=== PATIENT | male | born 1940 | race Asian ===

== ENCOUNTER → 2016-10-27 | Outpatient (CLI) | payer OTHER ==
[~2016-10-27] MED LIST: ALOE1LIQ; COQ PO; DXM/4 PO; ELDE1SYP PO; GUAI1TAB69 PO; MEGE40SU PO; MISCCAP80 PO; ONDA8TAB6 PO; OPTIRAY 320 IV PRN; PROC1TAB5 PO; TAMS0.4C38 PO; TRIA1SPR4 INTNAS; [UNRECOGNIZED DRUG - OTHER]
--- NOTE | 2016-10-28 07:42 | DIAGNOSTIC IMAGING REPORT ---
CT OF THE CHEST WITH IV CONTRAST CLINICAL HISTORY: Lung cancer. COMPARISON STUDY: Chest CT June 04, 2016 and PET/CT July 16, 2016. TECHNIQUE: Following IV administration of 93 mL of Optiray-320, helical axial images of the chest were obtained. Images were viewed in the axial, sagittal and coronal planes. IV contrast was administered without complication. CT DOSE: 208.67 mGy.cm FINDINGS: Several right paratracheal lymph nodes have not significantly changed since exam July 16, 2016 and include a right paratracheal lymph node shown image 49 of 336 that measures 1 cm short axis diameter. A lower right paratracheal lymph node shown on image 106 is unchanged, measuring 1.7 x 1.2 cm. The previous described right upper lobe mass is now cavitary. This mass measures approximately 7.5 x 5.9 cm. The mass has decreased in size since prior exam of July 16, 2016 when it measured 9 x 7.6 cm. A thick irregular wall persists. Right upper lobe aeration has improved since prior exam. There is been interval increase in extensive right lower lobe consolidation since prior exam. Innumerable nodules within the right lung, most evident within the right middle and lower lobes are now noted. There has been interval development of left upper and lower lobe airspace opacity as well. There is no pneumothorax. There is a trace right pleural effusion. No suspicious osseous lesions are present. Several hypodense hepatic lesions are unchanged and likely reflect cysts. Several bilateral renal cysts are noted. IMPRESSION: 1. Interval cavitation of the right upper lobe mass with mild decrease in size since PET/CT of July 16, 2016 consistent with a partial treatment response. 2. No change in mild mediastinal and right hilar lymphadenopathy since prior exam. 3. Interval development of stents is bilateral airspace opacities. Opacity within the right lung may reflect post radiation change although pneumonia could appear similar. 4. Tree-in-bud nodules within the right lung which may reflect an infectious process. Lymphangitic tumor could also appear similar although is considered less likely. This should be assessed on subsequent studies. 5. Trace right pleural effusion, significantly decreased in size since prior exam. Electronically signed by: Donell Mendez M.D. 10/28/2016 7:40 AM Dictated Date/Time: 10/27/2016 1:26 PM
== END | disposition home or self-care (01) ==
LOC: C.CTS 12:51
PROVIDERS: ATTEND Internal Medicine Hematology
DX: C34.11 Malignant neoplasm of upper lobe, right bronchus or lung (principal); C77.1 Secondary and unspecified malignant neoplasm of intrathoracic lymph nodes

== ENCOUNTER → 2016-10-29 | Outpatient (CLI) | payer OTHER ==
[~2016-10-29] MED LIST changes: -OPTIRAY 320 IV PRN
[2016-10-29 14:28] VITALS: BP 102/66; PULSE 94; TEMP 36.7; O2SAT 95
[2016-10-29 15:53] LABS: BASO % 0.1 %; BASO ABS # 0.01 K/uL (0-0.2); EOS % 0.3 %; HEMATOCRIT 26.7 % (42-52); IG% 0.6 %; LYMPH % 8.8 %; LYMPH ABS # 0.77 K/uL (1.2-3.4); MEAN CELL VOLUME 84.8 fL (80-100); MEAN CORPUSCULAR HEMOGLOBIN 27.9 pg (25-34); MONO % 7.1 %; NEUT % 83.1 %; PLATELET COUNT 280 K/uL (130-400); RED BLOOD COUNT 3.15 M/uL (4.7-6.1); WHITE BLOOD COUNT 8.76 K/uL (4.8-10.8)
[2016-10-29 16:31] LABS: ANISOCYTOSIS PRESENT; COMPLETE YES; VACUOLIZATION 1+
--- NOTE | 2016-10-29 18:03 | Radiation Oncology Follow-Up ---
Radiation Oncology Follow-Up Date of Visit Oct 29, 2016. Reason For Visit 1 month follow up Radiation Completion Date 10/01/16 Diagnosis (1) Lung cancer Onset Date: 06/11/2016 Permanent Comment: STAGING: Lung, RUL, adenocarcinoma, T3N3M0, stage IIIB TREATMENT: Status post combined radiation and chemotherapy radiation was completed 10/01/2016. He received 6000 cGy. Last Edited By: Kirk Tinoco on Oct 29, 2016 17:55 Interim History Mr. Dinh is a 76-year-old gentleman who presents with locally advanced non- small cell lung carcinoma involving the right upper lobe. The patient was treated with concurrent chemotherapy and radiation therapy and treatment completed on 10/01/2016. The patient did receive concurrent carboplatin and Taxol chemotherapy underneath the supervision of Dr. Tung Tinoco. The patient now presents for his 1 month follow-up evaluation. Today, the patient explained to us that he is having some significant fatigue and more shortness of breath. He is also having a productive cough without hemoptysis. He denies any dysphagia at this point. He has no significant pain. He does also complain of ringing in his left ear. He does continue to lose weight. His daughter did mention that he did recently have a transfusion of 2 units of packed red blood cells due to acute anemia. Allergies Coded Allergies: Finasteride (Verified Adverse Reaction, Unknown, BREAST GROWTH, 09/10/16) Home Medications Scheduled Dexamethasone (Decadron), 12 TAB PO DAILY Elderberry (Little Remedies For Colds), 10 ML PO AC Guaifenesin (Mucinex Maximum Strength), 1 TAB PO BID Megestrol Acetate (Megace Oral), 20 ML PO DAILY Probiotic Product (Probiotic), 1 CAP PO DAILY Prochlorperazine Maleate (Compazine), 1 TAB PO Q6 Tamsulosin Hcl (Flomax), 1 CAP PO HS [Coq10 Liquid], 30 ML PO TID [munuka honey], 2 TSP ACHS Scheduled PRN Ondansetron Hcl (Zofran), 8 MG PO TID PRN for Nausea Triamcinolone Acetonide (Nasal (Nasacort Allergy 24Hr), 2 SPRAYS INTNAS DAILY PRN for Nasal Congestion Review of Systems Gastrointestinal: Symptoms: Constipation GI Comments: Constipation - tries to increase fiber in diet - goes every 2 days Oral: Symptoms: No Problems Other Oral Symptoms: "takes a long time to swallow but not painful" Respiratory: Symptoms: Moist Cough, SOB With Exertion, Productive Cough Sputum Character: Productive cough of thick yellow/green sputum Other Respiratory: Cough causes SOB, KENNEDY Urinary: Symptoms: Burning Comments: Burning when urinating past couple days Skin: Symptoms: No Problems Physical Exam Vital Signs Date Time Temp Pulse Resp B/P Pulse Ox O2 Delivery O2 Flow Rate FiO2 10/29/16 14:28 36.7 94 16 102/66 95 General Appearance: WD/WN, no apparent distress Eyes: normal inspection ENT: normal ENT inspection Neck: supple, no adenopathy Respiratory/Chest: + decreased breath sounds, + crackles, + rales Cardiovascular: regular rate, rhythm, no edema, no gallop, no JVD, no murmur Abdomen: normal bowel sounds, non tender, soft, no organomegaly Laboratory Studies Test 08/13/16 00:00 08/13/16 13:40 09/25/16 14:26 10/01/16 14:21 Miscellaneous Genetic Test Lab Scanned Report Lab Referral [id number] Toxic Vacuolation 1+ Tear Drop Cells 1+ Ovalocytes 1+ 1+ Sodium Level 134 mmol/L (136-145) 132 mmol/L (136-145) Potassium Level 3.6 mmol/L (3.5-5.1) 3.8 mmol/L (3.5-5.1) Chloride Level 100 mmol/L (98-107) 96 mmol/L (98-107) Carbon Dioxide Level 25 mmol/L (21-32) 26 mmol/L (21-32) Anion Gap 9.0 mmol/L (3-11) 10.0 mmol/L (3-11) Blood Urea Nitrogen 19 mg/dl (7-18) 16 mg/dl (7-18) Creatinine 0.55 mg/dl (0.60-1.40) 0.61 mg/dl (0.60-1.40) Estimated GFR () 119.0 114.0 Estimated GFR (Non- 102.7 98.4 BUN/Creatinine Ratio 34.2 (10-20) 26.2 (10-20) Random Glucose 117 mg/dl (70-99) 112 mg/dl (70-99) Calcium Level 8.2 mg/dl (8.5-10.1) 8.0 mg/dl (8.5-10.1) Total Bilirubin 0.4 mg/dl (0.2-1) 0.5 mg/dl (0.2-1) Aspartate Amino Transferase (AST) 13 U/L (15-37) 44 U/L (15-37) Alanine Aminotransferase (ALT) 21 U/L (12-78) 44 U/L (12-78) Alkaline Phosphatase 65 U/L (45-117) 121 U/L (45-117) Total Protein 5.4 gm/dl (6.4-8.2) 6.0 gm/dl (6.4-8.2) Albumin 2.2 gm/dl (3.4-5.0) 2.1 gm/dl (3.4-5.0) Globulin 3.2 gm/dl (2.5-4.0) 3.9 gm/dl (2.5-4.0) Albumin/Globulin Ratio 0.7 (0.9-2) 0.5 (0.9-2) White Blood Count 4.06 K/uL (4.8-10.8) Red Blood Count 3.21 M/uL (4.7-6.1) Hemoglobin 9.2 g/dL (14.0-18.0) Hematocrit 27.2 % (42-52) Mean Corpuscular Volume 84.7 fL (80-100) Mean Corpuscular Hemoglobin 28.7 pg (25-34) Mean Corpuscular Hemoglobin Concent 33.8 g/dl (32-36) Platelet Count 162 K/uL (130-400) Mean Platelet Volume 8.6 fL (7.4-10.4) Neutrophils (%) (Auto) 84.3 % Lymphocytes (%) (Auto) 8.9 % Monocytes (%) (Auto) 5.9 % Eosinophils (%) (Auto) 0.2 % Basophils (%) (Auto) 0.2 % Neutrophils # (Auto) 3.42 K/uL (1.4-6.5) Lymphocytes # (Auto) 0.36 K/uL (1.2-3.4) Monocytes # (Auto) 0.24 K/uL (0.11-0.59) Eosinophils # (Auto) 0.01 K/uL (0-0.5) Basophils # (Auto) 0.01 K/uL (0-0.2) RDW Standard Deviation 55.9 fL (36.4-46.3) RDW Coefficient of Variation 18.1 % (11.5-14.5) Immature Granulocyte % (Auto) 0.5 % Immature Granulocyte # (Auto) 0.02 K/uL (0.00-0.02) Dohle Bodies OCCASIONAL Test 10/29/16 15:46 White Blood Count 8.76 K/uL (4.8-10.8) Red Blood Count 3.15 M/uL (4.7-6.1) Hemoglobin 8.8 g/dL (14.0-18.0) Hematocrit 26.7 % (42-52) Mean Corpuscular Volume 84.8 fL (80-100) Mean Corpuscular Hemoglobin 27.9 pg (25-34) Mean Corpuscular Hemoglobin Concent 33.0 g/dl (32-36) Platelet Count 280 K/uL (130-400) Mean Platelet Volume 8.0 fL (7.4-10.4) Neutrophils (%) (Auto) 83.1 % Lymphocytes (%) (Auto) 8.8 % Monocytes (%) (Auto) 7.1 % Eosinophils (%) (Auto) 0.3 % Basophils (%) (Auto) 0.1 % Neutrophils # (Auto) 7.28 K/uL (1.4-6.5) Lymphocytes # (Auto) 0.77 K/uL (1.2-3.4) Monocytes # (Auto) 0.62 K/uL (0.11-0.59) Eosinophils # (Auto) 0.03 K/uL (0-0.5) Basophils # (Auto) 0.01 K/uL (0-0.2) RDW Standard Deviation 56.0 fL (36.4-46.3) RDW Coefficient of Variation 17.9 % (11.5-14.5) Immature Granulocyte % (Auto) 0.6 % Immature Granulocyte # (Auto) 0.05 K/uL (0.00-0.02) Toxic Vacuolation 1+ Anisocytosis PRESENT Additional Studies CT OF THE CHEST WITH IV CONTRAST - 10/27/2016 CLINICAL HISTORY: Lung cancer. COMPARISON STUDY: Chest CT June 04, 2016 and PET/CT July 16, 2016. TECHNIQUE: Following IV administration of 93 mL of Optiray-320, helical axial images of the chest were obtained. Images were viewed in the axial, sagittal and coronal planes. IV contrast was administered without complication. CT DOSE: 208.67 mGy.cm FINDINGS: Several right paratracheal lymph nodes have not significantly changed since exam July 16, 2016 and include a right paratracheal lymph node shown image 49 of 336 that measures 1 cm short axis diameter. A lower right paratracheal lymph node shown on image 106 is unchanged, measuring 1.7 x 1.2 cm. The previous described right upper lobe mass is now cavitary. This mass measures approximately 7.5 x 5.9 cm. The mass has decreased in size since prior exam of July 16, 2016 when it measured 9 x 7.6 cm. A thick irregular wall persists. Right upper lobe aeration has improved since prior exam. There is been interval increase in extensive right lower lobe consolidation since prior exam. Innumerable nodules within the right lung, most evident within the right middle and lower lobes are now noted. There has been interval development of left upper and lower lobe airspace opacity as well. There is no pneumothorax. There is a trace right pleural effusion. No suspicious osseous lesions are present. Several hypodense hepatic lesions are unchanged and likely reflect cysts. Several bilateral renal cysts are noted. IMPRESSION: 1. Interval cavitation of the right upper lobe mass with mild decrease in size since PET/CT of July 16, 2016 consistent with a partial treatment response. 2. No change in mild mediastinal and right hilar lymphadenopathy since prior exam. 3. Interval development of stents is bilateral airspace opacities. Opacity within the right lung may reflect post radiation change although pneumonia could appear similar. 4. Tree-in-bud nodules within the right lung which may reflect an infectious process. Lymphangitic tumor could also appear similar although is considered less likely. This should be assessed on subsequent studies. 5. Trace right pleural effusion, significantly decreased in size since prior exam. Assessment & Plan Mr. Dinh is a 76-year-old gentleman who presents with locally advanced non- small cell lung carcinoma of the right lung treated with chemotherapy and radiation therapy which completed in September 2016. The patient presents for his 1 month follow-up evaluation. The patient did have a CT thorax completed on 10/27/2016 which does show a partial response to treatment with significant inflammation possibly from either infection or radiation therapy. Currently, the patient has no clinical evidence of progression of disease. Plan: 1. Return to clinic in 4 months for follow-up evaluation. 2. Follow up with medical oncology regarding the role of chemotherapy and restaging studies. We will forward the lab results from the CBC drawn today due to the patient's transient acute anemia. 3. Referral to pulmonology to optimize respiratory function and potentially treat underlying pneumonia/infection. I have spoken to Dr. Chepe Phipps and he does agree the patient should be evaluated by a high value associate and will help to have the patient be scheduled in the pulmonary clinic. 4. Continue follow-up with thoracic surgery. 5. The patient in the family were encouraged to call me if there are any questions or concerns. Total Time In Follow-Up I spent 30 minutes examining and counseling the patient. I spent 15 minutes completing this note. Copy To Sanjana Rosas D.O.; Tung Tinoco M.D.; Bryan Phipps MD; Angel Cristobal MD
== END | disposition home or self-care (01) ==
LOC: C.ONC 14:18
PROVIDERS: ATTEND Radiology Radiation Oncology
DX: Z08 Encounter for follow-up examination after completed treatment for malignant neoplasm (principal); Z92.3 Personal history of irradiation; Z85.118 Personal history of other malignant neoplasm of bronchus and lung

== ENCOUNTER 2016-11-11 13:45 | Inpatient (IN) | payer OTHER ==
[~2016-11-11] VITALS: Ht 170.2 cm; Wt 52.9 kg
[2016-11-11] VITALS (17 sets, daily range): BP systolic 94–177; BP diastolic 57–96; PULSE 112–157; TEMP 36.4–36.9; O2SAT 67–99; BMI 17.9
[~2016-11-11 13:45] MED LIST changes: -ALOE1LIQ
[2016-11-11] MEDS ORDERED: VANCOMYCIN INJ 1,000 MG in SODIUM CHLORIDE 0.9% 250ML 250 ML IV STA (13:59)
[2016-11-11] MEDS ORDERED: LEVOFLOXACIN / D5W 750 MG in PREMIXED IN D5W 150 ML IV SCH (14:00)
[2016-11-11] MEDS ORDERED: ACETAMINOPHEN 325 MG TAB PO PRN (14:00)
[2016-11-11] MEDS ORDERED: ONDANSETRON INJ 2 MG/ML 2 ML VIAL IV PRN (14:00)
[2016-11-11] MEDS ORDERED: PATIENT'S HEIGHT AND/OR WEIGHT NEEDED SCH (14:30)
[2016-11-11] MEDS ORDERED: VANCOMYCIN CONSULT ACTIVE PRN (14:30)
[2016-11-11] MEDS ORDERED: NSS + 20MEQ KCL 1000ML 1,000 ML IV SCH (14:30)
[2016-11-11] MEDS ORDERED: PIPERACILL/TAZOBAC CONSULT ACTIVE PRN (14:30)
--- NOTE | 2016-11-11 14:33 | DIAGNOSTIC IMAGING REPORT ---
CHEST ONE VIEW PORTABLE CLINICAL HISTORY: bilateral pneumonia, hypoxia COMPARISON STUDY: 08/13/2016 FINDINGS: The cardiac images all contours remain stable. Since the prior study, there has been interval development of extensive left lung airspace opacities. There are persistent but improving right lung airspace opacities. There is a persistent peripheral opacity within the right upper lung zone. There is soft tissue prominence of the right paratracheal region..[ IMPRESSION: 1. Interval development of extensive left lung airspace opacities 2. Persistent but slightly improved right lung airspace opacities 3. Soft tissue prominence of the right paratracheal region Electronically signed by: Lam Graf M.D. 11/11/2016 2:31 PM Dictated Date/Time: 11/11/2016 2:29 PM
[2016-11-11] MEDS ORDERED: PIPERACILL/TAZOBAC IV 4.5 GM in DEXTROSE 5% 100ML IV ONE (14:45)
[2016-11-11 14:48] LABS: INR 1.2 (0.9-1.1); PARTIAL THROMBOPLASTIN RATIO 1.4; PROTHROMBIN TIME (PATIENT) 13.4 SECONDS (9.0-12.0)
[2016-11-11 14:50] LABS: BASO % 0.1 %; BASO ABS # 0.01 K/uL (0-0.2); COMPLETE YES; EOS % 0.1 %; HEMATOCRIT 29.8 % (42-52); IG% 0.5 %; LYMPH ABS # 0.35 K/uL (1.2-3.4); MEAN CELL VOLUME 85.4 fL (80-100); MEAN CORPUSCULAR HEMOGLOBIN 29.2 pg (25-34); MEAN CORPUSCULAR HGB CONC 34.2 g/dl (32-36); MEAN PLATELET VOLUME 8.4 fL (7.4-10.4); MONO % 0.5 %; NEUT % 96.8 %; PLATELET COUNT 312 K/uL (130-400); RED BLOOD COUNT 3.49 M/uL (4.7-6.1); WHITE BLOOD COUNT 17.68 K/uL (4.8-10.8)
[2016-11-11 15:07] LABS: ALB/GLOB RATIO 0.3 (0.9-2); ALT/SGPT 37 U/L (12-78); AST/SGOT 33 U/L (15-37); BLOOD UREA NITROGEN 18 mg/dl (7-18); BUN/CREATININE RATIO 22.8 (10-20); CALCIUM 7.9 mg/dl (8.5-10.1); CARBON DIOXIDE 24 mmol/L (21-32); CHLORIDE 102 mmol/L (98-107); GLUCOSE 218 mg/dl (70-99); POTASSIUM 3.7 mmol/L (3.5-5.1); SODIUM 137 mmol/L (136-145)
[2016-11-11 15:08] LABS: ALKALINE PHOSPHATASE 97 U/L (45-117)
--- NOTE | 2016-11-11 15:15 | History and Physical ---
History & Physical Date & Time of Service: Nov 11, 2016 at 14:53 Chief Complaint: Bilateral Pneumonia, Severe Sepsis W/O Shock Primary Care Physician: Sanjana Rosas D.O. History of Present Illness Source: patient, family, clinic records, hospital records 76 yo male who has recent diagnosis of right sided poorly differentiated adenocarcinoma and just completed a full course of chemotherapy and radiation at the end of September. Approximately 2 weeks ago he had a follow up staging CT of the chest that showed some bilateral patchy infiltrates suggesting pneumonia. At that time his oncologist Dr. Tinoco started him on a 10 day course of antibiotics (unknown antibiotic) and Ventolin and mucinex. At the time of his CT he had a mild cough but no fevers and his breathing was stable and he had a normal appetite. He completed the 10 days of antibiotics and actually his cough improved. However, two days ago he developed high grade fevers, worsening cough, decreased appetite and worsening shortness of breath. He presented to the ED at [facility] yesterday with hypoxia, tachycardia and tachypnea. His WBC was 11 with 90% neutrophils, renal function and electrolytes stable. His Lactic acid was 2.1. CXR showed bilateral patchy infiltrates suggesting pneumonia. He required a NRB in the ED and initially he was supposed to come to [facility] but transport could not be arranged so he was admitted to the floor. He was started on Cefepime and Vancomycin after blood and urine cultures obtained. This morning he was still requiring a NRB and saturations were 90-92%. WBC went up to 15 with 97% neutrophils. BMP remained unremarkable. He was accepted as a direct transfer from [facility]. His daughter reports that he did reasonably well with chemotherapy and radiation. His weight has decreased from 125 at time of diagnosis to 108 now. He did require a few blood transfusions. But otherwise he did well, did not require any hospitalizations and he was in good spirits, anxious to see how the tumor responded to treatment to see if surgery would be an option. Past Medical/Surgical History Right sided lung adenocarcinoma, stage IIIb, s/p chemo and radiation completed in September 2016 Suspected MO in his 30s - never confirmed Arthritis Anemia BPH Bilateral cataract - no surgery yet Surgical History Surgery on right lower eyelid Family History Patient reports no known family medical history. Mother 95yo healthy Father 80yo "Collapsed" and 1 brother living lung cancer 1 sister living "Psych problems" 1 brother living smoking 1 sister living PVCs, needs Gallbladder removed, scoliosis Social History Smoking Status: Former Smoker Marital Status: Occupational Status: retired Allergies Coded Allergies: Finasteride (Verified Adverse Reaction, Unknown, BREAST GROWTH, 09/10/16) Home Medications Scheduled Dexamethasone (Decadron), 12 TAB PO DAILY Elderberry (Little Remedies For Colds), 10 ML PO AC Guaifenesin (Mucinex Maximum Strength), 1 TAB PO BID Megestrol Acetate (Megace Oral), 20 ML PO DAILY Probiotic Product (Probiotic), 1 CAP PO DAILY Prochlorperazine Maleate (Compazine), 1 TAB PO Q6 Tamsulosin Hcl (Flomax), 1 CAP PO HS [Coq10 Liquid], 30 ML PO TID [munuka honey], 2 TSP ACHS Scheduled PRN Ondansetron Hcl (Zofran), 8 MG PO TID PRN for Nausea Triamcinolone Acetonide (Nasal (Nasacort Allergy 24Hr), 2 SPRAYS INTNAS DAILY PRN for Nasal Congestion Review of Systems Constitutional: + chills, + fatigue, + fever, + sweats, + weakness, + weight loss Eyes: No diplopia, No discharge, No eye pain, No problem reported, No redness, No worsening of vision ENT: No dental problems, No hearing loss, No nasal symptoms, No problem reported, No sore throat, No tinnitus, No trouble swallowing, No unusual epistaxis Respiratory: + cough, + dyspnea at rest, + dyspnea on exertion, + shortness of breath, + sputum, No hemoptysis, No wheezing Cardiovascular: No PND, No chest pain, No claudication, No edema, No orthopnea , No palpitations, No problem reported Abdomen: No GI bleeding, No constipation, No diarrhea, No nausea, No pain, No problem reported, No vomiting Musculoskeletal: + joint pain, No calf pain, No muscle pain, No problem reported, No swelling Genitourinary - Male: No dysuria, No hematuria, No urinary frequency, No urinary urgency Neurologic: + weakness, No balance problems, No memory loss, No numbness/ tingling, No paralysis, No problem reported, No vertigo Psychiatric: No anhedonism, No anxiety, No depression symptoms, No insomnia, No problem reported, No substance abuse Endocrine: No excessive thirst, No excessive urination, No fatigue, No problem reported Hematologic / Lymphatic: No abnormal bleeding/bruising, No clotting problems, No night sweats, No problem reported, No swollen lymph nodes Integumentary: No bleeding, No color change, No itch, No new/changing skin lesions, No problem reported, No rash Allergic / Immunologic: No environmental allergies, No food allergies, No frequent infections, No hives, No pet sensitivities, No poor healing, No problem reported, No prolonged convalescence, No seasonal allergies Physical Exam General Appearance: + moderate distress (with breathing), + thin Head: normocephalic, atraumatic Eyes: normal inspection, PERRL, EOMI, sclerae normal ENT: normal ENT inspection, hearing grossly normal, pharynx normal Neck: supple, no adenopathy, thyroid normal, no JVD, trachea midline Respiratory/Chest: + respiratory distress, + decreased breath sounds, + accessory muscle use, + crackles, + rhonchi (bilaterally) Cardiovascular: no edema, no gallop, no JVD, no murmur, normal peripheral pulses, + tachycardia Abdomen/GI: normal bowel sounds, non tender, soft, no organomegaly Back: normal inspection, no CVA tenderness, no muscle spasm, normal range of motion Extremities/Musculoskelatal: normal inspection, no calf tenderness, normal capillary refill, no pedal edema, normal range of motion, pelvis stable Neurologic/Psych: automation engineer II-XII nml as tested, no motor/sensory deficits, alert, normal mood/affect, normal reflexes, oriented x 3 Skin: normal color, warm/dry, no rash, + pertinent finding (no mottling) Lymphatic: no adenopathy Diagnostics Laboratory Results Results Past 24 Hours Test 11/11/16 14:05 11/11/16 14:27 Range/Units White Blood Count 17.68 4.8-10.8 K/uL Red Blood Count 3.49 4.7-6.1 M/uL Hemoglobin 10.2 14.0-18.0 g/dL Hematocrit 29.8 42-52 % Mean Corpuscular Volume 85.4 80-100 fL Mean Corpuscular Hemoglobin 29.2 25-34 pg Mean Corpuscular Hemoglobin Concent 34.2 32-36 g/dl Platelet Count 312 130-400 K/uL Mean Platelet Volume 8.4 7.4-10.4 fL Neutrophils (%) (Auto) 96.8 % Lymphocytes (%) (Auto) 2.0 % Monocytes (%) (Auto) 0.5 % Eosinophils (%) (Auto) 0.1 % Basophils (%) (Auto) 0.1 % Neutrophils # (Auto) 17.13 1.4-6.5 K/uL Lymphocytes # (Auto) 0.35 1.2-3.4 K/uL Monocytes # (Auto) 0.09 0.11-0.59 K/uL Eosinophils # (Auto) 0.02 0-0.5 K/uL Basophils # (Auto) 0.01 0-0.2 K/uL RDW Standard Deviation 56.4 36.4-46.3 fL RDW Coefficient of Variation 18.1 11.5-14.5 % Immature Granulocyte % (Auto) 0.5 % Immature Granulocyte # (Auto) 0.08 0.00-0.02 K/uL Prothrombin Time 13.4 9.0-12.0 SECONDS Prothromb Time International Ratio 1.2 0.9-1.1 Activated Partial Thromboplast Time 36.0 21.0-31.0 SECONDS Partial Thromboplastin Ratio 1.4 Microbiology Results 11/11/16 Gram Stain, Ordered Pending 11/11/16 Sputum Culture, Ordered Pending Diagnostic Radiology CXR: diffuse left sided opacities, slightly improved right sided opacities compared to prior film Impression Assessment and Plan 76 yo male with stage IIIb right sided adenocarcinoma s/p chemo and radiation who presents with bilateral pneumonia and acute respiratory failure - Acute hypoxic respiratory failure, possible ARDS: high oxygen demands on NRB, bilateral infiltrates, no evidence of heart failure continue NRB consult pulmonary long discussion with patient and daughter regarding prognosis, his breathing could get worse, they are open to mechanical ventilation if needed - Bilateral pneumonia, HCAP since he failed outpatient antibiotics and is cancer patient Vancomycin, Zosyn and Levaquin legionella antigen sent duonebs, vibratory vest, flutter valve NSS + 20mEq K at 100cc/hr - Severe sepsis with organ failure: organ failure is respiratory failure with hypoxia no evidence of shock, repeat lactic acid was 0.8 at [facility], actually hypertensive here on transfer and never hypotensive at [facility] takes Decadron for chemotherapy, will start on stress dose steroids due to severe illness - Stage IIIb lung adenocarcinoma: completed chemo and radiation will follow up with Dr. Tinoco for restaging once he recovers from pneumonia - DVT prophylaxis: Lovenox - GI prophylaxis: Protonix Please note that 45 minutes of critical care time spent on patient from 225-310 pm I discussed the case with Dr. Cruz in ICU, aware of patient if he would decompensate Level of Care Telemetry Resuscitation Status FULL RESUSCITATION VTE Prophylaxis VTE Risk Assessment Done? Y/N: Yes Risk Level: High Given or contraindicated: Enoxaparin (Lovenox)SQ Note Total Time: Critical Care 30 - 74 minutes Additional Copies To Sanjana Rosas D.O.; Bryan Phipps MD
[2016-11-11] MEDS: HYDROCORTISONE IV 50 MG in SYRINGE 0 ML IV SCH ×2 (15:27→22:53)
[2016-11-11 15:38] LABS: URINE APPEARANCE CLOUDY (CLEAR); URINE BILIRUBIN NEG (NEG); URINE COLOR DK YELLOW; URINE EPITHELIAL CELL AUTO >30 /lpf (0-5); URINE NITRITE NEG (NEG); URINE SPECIFIC GRAVITY 1.027 (1.000-1.030); UROBILINOGEN NEG (NEG); ZZUR CULT IF INDIC CLEAN CATCH NO
[2016-11-11 15:44] LABS: MANUAL MICROSCOPIC REQUIRED? NO; REVIEW REQ? YES
[2016-11-11] MEDS ORDERED: VANCOMYCIN INJ 1,300 MG in SODIUM CHLORIDE 0.9% 250ML 250 ML IV ONE (15:45)
[2016-11-11 15:54] LABS: URINE PATH CASTS 1-5 GRANULAR CASTS /lpf (0)
[2016-11-11 15:55] LABS: URINE MUCUS PRESENT (NONE PRSENT)
--- NOTE | 2016-11-11 15:55 | Pharmacy Progress Note ---
Pharmacy Antibiotic Consult Date of Service: Nov 11, 2016. Pharmacy Dosing Scope Pharmacy is consulted to initiate Vanco/Zosyn/LVQ IV dosing therapy, order appropriate labs and adjust drug dose/frequency. Subjective The patient is a 76 year old male admitted on Nov 11, 2016 at 13:45. Objective Height (Feet): 5 Height (Inches): 7.00 Weight (Kilograms): 51.900 Lab Results (24hrs): Item Value Date Time Creatinine 0.80 mg/dl 11/11/16 1427 Estimated GFR () 102.0 11/11/16 1427 Laboratory Tests Test 11/11/16 14:27 BUN/Creatinine Ratio 22.8 Blood Urea Nitrogen 18 mg/dl Creatinine 0.80 mg/dl White Blood Count 17.68 K/uL Red Blood Count 3.49 M/uL Hemoglobin 10.2 g/dL Hematocrit 29.8 % Mean Corpuscular Volume 85.4 fL Mean Corpuscular Hemoglobin 29.2 pg Mean Corpuscular Hemoglobin Concent 34.2 g/dl Platelet Count 312 K/uL Mean Platelet Volume 8.4 fL Neutrophils (%) (Auto) 96.8 % Lymphocytes (%) (Auto) 2.0 % Monocytes (%) (Auto) 0.5 % Eosinophils (%) (Auto) 0.1 % Basophils (%) (Auto) 0.1 % Neutrophils # (Auto) 17.13 K/uL Lymphocytes # (Auto) 0.35 K/uL Monocytes # (Auto) 0.09 K/uL Eosinophils # (Auto) 0.02 K/uL Basophils # (Auto) 0.01 K/uL Micro Results: Item Value Date Time MRSA DNA Surveillance Screen Bill Batch 11/11/16 1521 Nasal Pending Gram Stain Ordered 11/11/16 1405 Sputum Expectorated Sputum Pending Assessment & Plan Pt p/w worsening SOB. Pt failed recent antibx and is being transferred in from [facility]. Pt is currently tachypneic, tachycardic, experiencing leukocytosis w/ a left shift, afebrile. Renal fxn looks to be at baseline. Scr=0.80, gWqMw=351mr /min. Pt population p'kinetics; t1/2=7.8hrs, ke=0.0891. Vanco: * Loading dose: Vanco 1300mg (25mg/kg) IV X 1 dose then: * Vanco 800mg(15mg/kg) IV every 10 hours. * Goal trough level estimate: between 15 - 20 mcg/mL. * Trough level has been ordered for: prior to the 4th MD. Zosyn: * Pt received one time 30 min 4.5g infsn at 1445 * Set to receive EI Zosyn q8, appropriate for eCrCl>20cc/min and clinical status LVQ * Not consulted; however, appropriately dosed Thank you for consulting the pharmacy kinetic team and including us in the care of Mr. Dinh Pharmacy will continue to follow and will adjust dose/frequency as necessary. Thank you
[2016-11-11] MEDS ORDERED: DEXTROSE 50% 50 ML SYR IV PRN (16:15)
[2016-11-11] MEDS ORDERED: GLUCOSE 40% GEL 15 GM TUBE PO PRN (16:15)
[2016-11-11] MEDS ORDERED: GLUCOSE 10 TABS/TUBE PO PRN (16:15)
[2016-11-11] MEDS ORDERED: GLUCAGON FOR INJ 1 MG VIAL SQ PRN (16:15)
--- NOTE | 2016-11-11 16:28 | PULMONARY CONSULTATION ---
DATE OF CONSULTATION: 11/11/2016 DATE OF CONSULTATION: 11/11/2016. TIME: 3:45 p.m. HISTORY OF PRESENT ILLNESS: The patient was seen in room 209. He is a 76-year-old male who is [place] by background. He has lived in the for 5 years. 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 He underwent chemotherapy and radiation therapy and these were completed on 10/01/2016 or thereabouts. An appointment on 10/29/2016 the patient was complaining of fatigue, cough, and shortness of breath. He apparently had a course of Levaquin at that time. The chemo he had previously was carboplatin and paclitaxel. His bronchoscopy had been done back in June, apparently by Dr. Phipps. He tolerated the treatments pretty well. He has actually been feeling generally better according to his family. The patient himself speaks no [place] and does not understand [place]. The appetite has been fairly good. Reportedly, his weight more recently has been fairly stable. All of a sudden in the past 48 hours or so, he became more short of breath and was hypoxic. They went to [facility] last evening. He was admitted there, but then transferred here today for further care. The patient has been on a nonrebreather mask for oxygen and in spite of that, his saturations are only about 87%. He is also tachypneic. He has been expectorating mucus fairly regularly. This would be numerous times per day according to his daughter and son-in-law. The mucus has been yellow. When I was in seeing him, he did cough up a specimen for us. They do not believe any specimen had been obtained previously. The patient has had some chills and some sweats. Temperature yesterday at home was as high as 103 degrees rectally. I inquired whether the patient had had TB previously. There was confusion as to whether he did or he did not, but the family thinks that he had a negative PPD when he came to the [place]. They are pretty certain that had to be done to get his green card. The patient has a longstanding history of smoking. He has not smoked recently, but he has smoked heavily all of his life according to his family. PAST SURGICAL HISTORY: Includes some type of eye surgery as well as the bronchoscopy mentioned above. PAST MEDICAL HISTORY: Included BPH as well as anemia. FAMILY HISTORY: Reportedly is noncontributory. Family did tell me that he lives and grew up in an area [place] where people tend to live to old age with the highest number of centenarians. REVIEW OF SYSTEMS: This was difficult as the patient does not understand. He has obviously been weak. He has been having some difficulty passing his urine. I do not believe he is having pain. The patient and his family deny having had any vomiting. No one else has been sick at home as far as I know. PHYSICAL EXAMINATION: GENERAL: The patient is a 76-year-old oriental male who was cooperative. He was alert. The patient was giving me thumbs up signals even though he did not know exactly what I was asking. VITAL SIGNS: Temperature here is 36.4. HEAD, EYES, EARS, NOSE, AND THROAT: Eye exam suggests cataract formation. I could not well examine the nasal passages or oropharynx because he has the nonrebreather mask on and he desaturates very quickly. No lymphadenopathy was noted. LUNGS: The patient appeared tachypneic. His respiratory rate currently is 36 breaths per minute. Diffuse rales are heard bilaterally, but greater on the left than the right. He has increased work of breathing with accessory muscle use. HEART: Rate was elevated to 120. The rhythm was regular. ABDOMEN: Normal appearance. However, he was very firm in the lower abdominal region. This was dull to percussion. I suspected he had a very distended bladder. Indeed a scan was done suggesting 1000 mL of fluid. No upper abdominal masses were palpated. EXTREMITIES: Showed no cyanosis, clubbing or edema. LABORATORY DATA: White blood cell count today is 17.68. Hemoglobin is 10.2. Platelets 312,000. INR was 1.2 and PTT was 36. Urine is pending. Electrolytes show sodium 137, potassium 3.7, chloride 102, bicarbonate 24. BUN 18 with creatinine 0.8. Blood sugar was 218. Calcium was 7.9. Liver functions were normal. Albumin was only 1.8. Globulin 5.6. Urine for legionella antigen is pending. Chest x-ray done today showed extensive left lung airspace opacities with persistent right lung opacities and a large cavity in the right upper lung field. I did review a CAT scan from 10/27/2016 revealing extensive right upper lobe cavity measuring 7.4 cm. This correlates with where the mass had been. He also had significant bilateral infiltrates at that time. IMPRESSIONS: 1. Respiratory failure with acute hypoxia. 2. Bilateral lung infiltrates -- differential diagnosis includes pneumonia versus metastatic disease versus TB or fungal infections. 3. 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 4. Urinary retention. COMMENTS AND RECOMMENDATIONS: The patient is working hard to breathe. He does have a bladder full. Perhaps his breathing may improve once the catheter is in. I suspect, however, the problem is related to the underlying lung problems. Clinically, this would sound like an acute pneumonia in light of the fact he seemed to get sick very suddenly. However, he did have a CAT scan done more than 2 weeks ago that was very abnormal bilaterally. I believe we should treat for pneumonia. We are collecting sputum for Gram stain and culture and AFB smear and culture. We are putting a catheter in. If his oxygenation does not improve, we will try a high flow nasal oxygen. Will obtain a TB gold interferon. Consideration is given to moving the patient to first floor ICU. I believe he is at risk for requiring mechanical ventilation. I discussed the severity of the problem with the patient's family who was present which included his daughter and I believe his son-in-law. I do agree with the vancomycin, Zosyn, and levofloxacin he is currently on as well as hydrocortisone. He is on nebulizer treatments. He is on prophylaxis with Lovenox. Thank you for asking me to assist in his care.
[2016-11-11] MEDS: LEVOFLOXACIN 750MG / D5W IV SCH (16:32)
[2016-11-11] MEDS: ALBUT/IPRATROP 3MG/0.5MG NEB 3 ML VIAL INH SCH ×2 (16:45→20:09)
[2016-11-11] MEDS ORDERED: INSULIN GLARGINE SOLOSTAR 100 UNITS/ML 3 ML PEN SC STA (16:53)
[2016-11-11] MEDS ORDERED: PIPERACILL/TAZOBAC IV 3.375 GM in DEXTROSE 5% 100ML 100 ML IV SCH (18:00)
[2016-11-11] MEDS: INSULIN ASPART 100 UNITS/ML 3 ML PEN SC SCH ×2 (18:26→20:32)
[2016-11-11] MEDS ORDERED: PHARMACY GLYCEMIC MGMT CONSULT SCH (19:09)
--- NOTE | 2016-11-11 19:40 | CRITICAL CARE CONSULTATION ---
DATE OF CONSULTATION: 11/11/2016 CHIEF COMPLAINT: Shortness of breath. HISTORY OF PRESENT ILLNESS: Mr. Dinh is a 76-year-old [place] gentleman who has lived in the [place] for 5 years. He was diagnosed with poorly differentiated carcinoma of the right lung, staged at T3N3M0 and underwent chemotherapy with carboplatin and paclitaxel. He also received radiation treatments. Both of those ended sometime in September. He developed a cough around the time when he went for a followup CT scan of the chest which showed bilateral infiltrates for which he was placed on some sort of antibiotic, Mucinex and Ventolin. Evidently he improved but developed a fever to 103 at home yesterday. He also had cough, worsening shortness of breath and was producing yellow sputum. He was seen at [facility] and was admitted for hypoxemia, tachycardia and tachypnea. He received vancomycin and cefepime and required a 100% nonrebreather mask. His EKG at that time showed sinus tachycardia with nonspecific ST-T wave changes. His rapid influenza screen was negative. He was transferred to our facility earlier today to the telemetry unit. He has continued to have high oxygen requirements and was seen by the pulmonary service this afternoon. He is now on a high flow nasal cannula and feeling better. I should note that he does not speak any Occitan and so my interview was assisted by his daughter who served as an staff interpreter. Overall, he feels better than he did yesterday and even earlier today, but is still frustrated that he gets so short of breath with any type of movement whatsoever. He continues to cough up yellow sputum and denies pain. He has had nearly a 20-pound weight loss, but feels like his appetite has been pretty good besides the past couple of days. Also, note that on his chest CT 2 weeks ago, he had developed cavitation of the right upper lobe mass but also had a mild decrease in the size since July of 2016. Since arriving to [facility], his antibiotics have been expanded to include Zosyn, vancomycin and Levaquin. He is also on hydrocortisone 50 mg every 8 hours. PAST MEDICAL HISTORY: Anemia, cataracts, arthritis, possible history of myocardial infarction and benign prostatic hypertrophy. PAST SURGICAL HISTORY: Status post eyelid surgery. ALLERGIES: FINASTERIDE. OUTPATIENT MEDICATIONS: Reviewed. PRESENT MEDICATIONS: Acetaminophen, DuoNeb, Lovenox, hydrocortisone, insulin, Levaquin, Megace, Zofran, Protonix, Zosyn, normal saline with potassium chloride at 100 mL per hour, Flomax, vancomycin. SOCIAL HISTORY: He has a greater than 33-fwna-phls history of smoking. He has lived in the [place] 5 years. He does not drink any alcohol. FAMILY HISTORY: Significant for a brother with colon cancer. REVIEW OF SYSTEMS: Limited by the language barrier. He denies headache, nausea, chest pain, abdominal pain. He denies constipation or diarrhea. He has had some urinary retention for which he had a Alba placed. He has a cough. PHYSICAL EXAMINATION: VITAL SIGNS: Temperature 36.9, heart rate 112, respiratory rate 22, blood pressure 124/66, oxygen saturation 92% on a 50 liter high flow nasal cannula. HEENT: Pupils are round bilaterally. He has cloudiness of the cornea left greater than right. Oral mucosa is moist. Posterior pharynx clear. NECK: No adenopathy. LUNGS: Bilateral rales, right greater than left. No rhonchi or wheezes. HEART: Tachycardic, regular. CHEST: Thin, symmetric expansion. ABDOMEN: Soft, nondistended, flat, nontender, active bowel sounds. EXTREMITIES: Warm. No edema. There is somewhat cachectic. LABORATORY DATA: White blood cell count 17.68, hemoglobin 10.2, hematocrit 29.8, platelets 312. Sodium 137, potassium 3.7, chloride 102, CO2 24, BUN 18, creatinine 0.8, and blood sugar 330. Lactate 3.6, calcium 7.9, total bilirubin 0.4; AST, ALT, and alkaline phosphatase within normal limits. Albumin 1.8. PT 13.4, INR 1.2, PTT 36. Urinalysis with greater than 30 epithelial cells, 1-5 granular casts. Urine legionella antigen is pending. TB test pending. Blood culture and urine culture done at [facility], pending. Influenza A and B negative at [facility]. IMAGING DATA: Chest x-ray was reviewed and shows extensive bilateral airspace opacities. The right has improved and the left has developed since his CT scan. IMPRESSION: 1. Acute hypoxemic respiratory failure. 2. Bilateral interstitial infiltrates with acute respiratory distress syndrome type picture. This could be related to his poorly differentiated adenocarcinoma or it could be an infectious process. Radiation pneumonitis, I think may could also be in the differential and he is getting steroids. 3. Urinary retention. 4. Hyperglycemia, likely secondary to steroids. 5. Nonsmall cell lung carcinoma with a right upper lobe cavity. 6. Hypoalbuminemia and I suspect protein calorie malnutrition. PLAN: 1. Continue broad spectrum antibiotics. I will double check to make sure a sputum culture has also been ordered. 2. Continue bronchodilators and corticosteroids. 3. Glycemic consult. 4. Vibration vest and flutter valve. 5. Consider nutritional supplements. I would like to see how he does overnight tonight before giving him anything further to eat and drink other than some clear liquids. 6. Await the urinary legionella antigen and the TB test. 7. Trend procalcitonin and CRP. 8. Provide DVT prophylaxis. 9. He is a full code status. Thank you for asking me to see this nice gentleman with the assistance of his very nice daughter. Please call me with any questions or concerns. Critical care time 40 min MTDD
[2016-11-11] MEDS: PIPERACILL/TAZOBAC IV 3.375 GM in DEXTROSE 5% 100ML IV SCH (20:37)
[2016-11-11] MEDS: ENOXAPARIN 40 MG/0.4 ML SYR SC SCH (20:37)
[2016-11-11] MEDS: VANCOMYCIN INJ 800 MG in SODIUM CHLORIDE 0.9% 250ML 250 ML IV SCH (20:37)
[2016-11-11] MEDS ORDERED: INSULIN GLARGINE SOLOSTAR 100 UNITS/ML 3 ML PEN SC SCH ×2 (21:00)
[2016-11-11] MEDS ORDERED: TAMSULOSIN HCL 0.4 MG CAP PO SCH (21:00)
[2016-11-11 21:32] LABS: ISTAT ALLEN TEST Pass; ISTAT ARTERIAL BLOOD GAS HCO3 25 meq/L (19-24); ISTAT ARTERIAL BLOOD GAS PCO2 40 mmHg (35-46); ISTAT ARTERIAL BLOOD GAS PO2 41 mmHg (80-95); ISTAT CARBON DIOXIDE 26 mEq/l (24-31); ISTAT DELIVERY SYSTEM Cannula; ISTAT SITE R Radial
[2016-11-11] MEDS ORDERED: RAPID SEQUENCE INDUCTION BAG ONE (21:35)
--- NOTE | 2016-11-11 21:42 | DIAGNOSTIC IMAGING REPORT ---
CHEST ONE VIEW PORTABLE CLINICAL HISTORY: acute hypoxia and short of breath dyspnea COMPARISON STUDY: 11/11/2016 2:14 PM FINDINGS: Progressive left hemithoracic infiltrative change. Stable right hemithoracic pleural reactive and parenchymal infiltrative change. IMPRESSION: Progressive left hemithoracic infiltrate versus diffuse pulmonary edema Electronically signed by: Vincenzo Olvera M.D. 11/11/2016 9:41 PM Dictated Date/Time: 11/11/2016 9:40 PM
[2016-11-11] MEDS ORDERED: PROPOFOL IV EMULSION 10 MG/ML 100 ML VIAL IV ONE (21:44)
[2016-11-11] MEDS ORDERED: PHENYLEPHRINE IV PUSH KIT FOR ED IV ONE (22:15)
[2016-11-11] MEDS ORDERED: PHENYLEPHRINE HCL INJ 10 MG/ML VIAL ONE (22:16)
--- NOTE | 2016-11-11 22:21 | Progress Note ---
Progress Note Date of Service Nov 11, 2016. Progress Note Called by RN Anabella due to patient becoming acutely short of breath after bed vibration and duoneb. Saturation down to mid 80's on 100% FiO2 (progressively worse from earlier). Over the phone ordered Stat ABG and respiratory to get BiPAP ready. Subjective: Patient unable to speak Turkmen so limited history with daughter as a full stack developer. Admitted earlier today with suspected pneumonia with co-morbid lung adenocarcinoma, transferred down to ICU as potentially may need intubation as becoming increasingly hypoxic. He suddenly became short of breath and feeling like it was difficult to get air everywhere around 9:05am. He denies chest pain. Objective: Airway: patent, no stridor present Breathing: RR 30-40. Sats 83% on FiO2 high flow nasal cannula. Coarse breath sounds b/l with expiratory wheeze but equal air entry and trachea central Circulation: HR 140, BP 151/95, UO > 0.9 ml/kg/hr, T36.6, peripheral capillary refill <2 seconds, HS 1+2 quiet compared coarse breath sounds, no appreciable murmurs present Disability: BSG approximately 120, Alert (GCS 15) Everything else: moving all 4 limbs equally, denies any pain, calves SNT, abdomen SNT with BS normal Assessment: Acute hypoxic respiratory failure after vibration and neb, suggestive of mucus plugging. Other differentials include PE or lung hemorrhage (just had initial dose of Lovenox) ABG on 100% FiO2 high flow nasal cannula, pH 7.394, pCO2 40.6, pO2 42, HCO3 24.8 sats 77%. Placed initially on BiPAP 12/5 100% FiO2, sats ranging from 80-90%, patient appears agitated on BiPAP at times but refusing medication for relaxation. Plan: Stat CXR, CBC with diff, lactic acid, BMP, type and save After 10 minutes of BiPAP maintaining around sats around 87-88% it was clear this patient would need to be intubated overnight. Dr Cruz was called and came in for intubation of patient. Second IV line established. Stayed with patient until Dr Cruz arrived and is currently intubating patient. Dr Manuel kept informed of events - advised Mucomyst as sounds like mucus plugging. Resident Tracking Resident Involvement: Resident Care Provided Care Provided: Adult Hospital Medicine
[2016-11-11 22:25] LABS: BUN/CREATININE RATIO 28.3 (10-20); CALCIUM 8.5 mg/dl (8.5-10.1); CREATININE 0.69 mg/dl (0.60-1.40); POTASSIUM 3.4 mmol/L (3.5-5.1)
[2016-11-11] MEDS ORDERED: NURSING VERBAL MED ORDER ONE ×2 (22:30→23:00)
[2016-11-11] MEDS ORDERED: NOREPINEPHRINE BIT INJ 8 MG in DEXTROSE 5% 500ML 500 ML IV PRN (22:30)
[2016-11-11] MEDS ORDERED: FENTANYL CITRATE INJ 50 MCG/1 ML 2 ML VIAL IV ONE (22:45)
[2016-11-11] MEDS: PROPOFOL IV EMULSION 10 MG/ML 100 ML VIAL IV PRN (22:48)
[2016-11-11] MEDS: FENTANYL 1250MCG/250ML NSS 250 ML IV PRN (22:49)
[2016-11-11] MEDS ORDERED: FUROSEMIDE 40 MG/4 ML VIAL ONE (22:49)
[2016-11-11 23:02] LABS: HEMATOCRIT 34.3 % (42-52); MEAN CELL VOLUME 87.3 fL (80-100); MEAN CORPUSCULAR HEMOGLOBIN 28.8 pg (25-34); MEAN CORPUSCULAR HGB CONC 32.9 g/dl (32-36); MEAN PLATELET VOLUME 8.5 fL (7.4-10.4); PLATELET COUNT 481 K/uL (130-400); RED BLOOD COUNT 3.93 M/uL (4.7-6.1); WHITE BLOOD COUNT 34.42 K/uL (4.8-10.8)
[2016-11-11 23:05] LABS: COMPLETE YES; ECHINOCYTES 1+; LYMPH ABS # 0.89 K/uL (1.2-3.4); LYMPHOCYTE % 2.6 %; NEUTROPHILS % 96.5 %; POLYCHROMASIA 1+; SCHISTOCYTES OCCASIONAL
[2016-11-11] MEDS ORDERED: POTASSIUM CHLORIDE 20 MEQ/15 ML UDC PO STA (23:55)
[2016-11-12] VITALS (33 sets, daily range): BP systolic 75–111; BP diastolic 36–69; PULSE 100–133; TEMP 36.5–37; O2SAT 85–99; Ht 170.2 cm; Wt 52.9 kg
[2016-11-12] MEDS ORDERED: SULFAMETHOXAZOLE/TRIMETHOPRIM DS 800/160MG TAB PO ONE
--- NOTE | 2016-11-12 00:06 | Procedure Note ---
Procedure Note Date of Service Nov 12, 2016. Procedure Note Hydraulic Punch Press Operator Procedure Note: Intubation I was called for worsening hypoxemia and gave orders to have intubation equipment and medications to the bedside. I arrived to the hospital and found the patient in respiratory distress om bipap 100% fio2 with oxygen saturations in the 70-80's. I sedated him with fentanyl and propofol and bagged him with 100% FIO2 to a saturation of 85-88%. I used a 3.[address] an 8.0 ETT using the glidescope. Frothy pink secretions came through the ETT immediately. + BS bilaterally, + CO2 detector. CXR pending. No complications.
--- NOTE | 2016-11-12 00:12 | Procedure Note ---
Procedure Note Procedure Date Nov 12, 2016. Procedure Description Procedure Name: Fiberoptic Bronchoscopy Procedure time out: side/site verified, patient ID confirmed, correct procedure Consent obtained: written Time of procedure: 23:00 Performed by: attending Indications: diagnostic, therapeutic Contraindications: none Description: Patient was sedated with versed 5mg. I placed the fiberoptic bronchoscope into the ETT and to the yuliana. [place], frothy sputum was identified moving up both mainstem bronchi into the trachea. I passed the bronch into the RUL, RML and RLL. No obstruction, bleeding or mucous plugging. BAL performed in the RUL and RLL. Bronch was then passed into LLL and lingula, BAL performed on LLL. No mucous, bleeding obstruction noted. Watery secretions throughout. Bronch was removed and BAL samples sent to lab. Complications: none Patient tolerated procedure: well Post-procedure vital signs: reviewed and stable
--- NOTE | 2016-11-12 00:17 | Procedure Note ---
Procedure Note Procedure Date Nov 12, 2016. Procedure Description Procedure Name: L Radial Arterial Line Procedure time out: side/site verified, patient ID confirmed, correct procedure Consent obtained: written Time of procedure: 23:30 Performed by: attending Indications: other Contraindications: none Description: The left wrist was prepared with chlorhexidine and draped in sterile fashion after I donned a hat,mask,sterile gown and sterile gloves. An Arrow 20g radial artery catheter was placed into the L radial artery over a needle with the kit. A wire was passed through the needle and the catheter was placed over the wire. The wire and needle were removed. The line was sutured into place with 3.0 silk after being attached to a transducer. Complications: none Patient tolerated procedure: well Post-procedure vital signs: reviewed and stable
[2016-11-12 00:39] LABS: ISTAT ARTERIAL BLOOD GAS HCO3 24 meq/L (19-24); ISTAT ARTERIAL BLOOD GAS PCO2 46 mmHg (35-46); ISTAT ARTERIAL BLOOD GAS PO2 72 mmHg (80-95); ISTAT ARTERIAL BLOOD GAS pH 7.32 (7.35-7.45); ISTAT CARBON DIOXIDE 25 mEq/l (24-31); ISTAT DELIVERY SYSTEM Ventilator; ISTAT FIO2 100 %; ISTAT PEEP 15; ISTAT RATE 18; ISTAT SITE Art Line; VE 11.9; Vt 450
[2016-11-12] MEDS ORDERED: INSULIN ASPART 100 UNITS/ML 3 ML PEN SC SCH (02:00)
[2016-11-12 06:07] LABS: HEMATOCRIT 29.9 % (42-52); MEAN CELL VOLUME 85.9 fL (80-100); MEAN CORPUSCULAR HEMOGLOBIN 28.2 pg (25-34); MEAN CORPUSCULAR HGB CONC 32.8 g/dl (32-36); MEAN PLATELET VOLUME 8.4 fL (7.4-10.4); PLATELET COUNT 293 K/uL (130-400); RED BLOOD COUNT 3.48 M/uL (4.7-6.1); WHITE BLOOD COUNT 18.85 K/uL (4.8-10.8)
[2016-11-12 06:11] LABS: BUN/CREATININE RATIO 34.2 (10-20); CALCIUM 7.4 mg/dl (8.5-10.1); CREATININE 0.58 mg/dl (0.60-1.40); POTASSIUM 3.5 mmol/L (3.5-5.1)
[2016-11-12 06:18] LABS: BASO % 0.1 %; BASO ABS # 0.01 K/uL (0-0.2); COMPLETE YES; EOS % 0.1 %; IG% 0.6 %; LYMPH % 1.6 %; MONO % 1.2 %; NEUT % 96.4 %; POLYCHROMASIA 1+
[2016-11-12 06:21] LABS: C-REACTIVE PROTEIN 18.7 mg/dl (0-0.29); PHOSPHORUS 3.6 mg/dl (2.5-4.9)
[2016-11-12] MEDS: PIPERACILL/TAZOBAC IV 3.375 GM in DEXTROSE 5% 100ML IV SCH ×3 (06:25→22:23)
[2016-11-12 06:27] LABS: ISTAT ARTERIAL BLOOD GAS HCO3 27 meq/L (19-24); ISTAT ARTERIAL BLOOD GAS PCO2 48 mmHg (35-46); ISTAT ARTERIAL BLOOD GAS PO2 96 mmHg (80-95); ISTAT ARTERIAL BLOOD GAS pH 7.35 (7.35-7.45); ISTAT CARBON DIOXIDE 28 mEq/l (24-31); ISTAT DELIVERY SYSTEM Ventilator; ISTAT FIO2 80 %; ISTAT PEEP 15; ISTAT RATE 20; ISTAT SITE Art Line; VE 10.7; Vt 450
[2016-11-12] MEDS: PROPOFOL IV EMULSION 10 MG/ML 100 ML VIAL IV PRN ×2 (06:28→17:23)
[2016-11-12] MEDS: INSULIN ASPART 100 UNITS/ML 3 ML PEN SC SCH ×4 (06:45→21:00)
--- NOTE | 2016-11-12 07:07 | DIAGNOSTIC IMAGING REPORT ---
CHEST ONE VIEW PORTABLE CLINICAL HISTORY: LUNG CANCER RESPIRATORY FAILURE COMPARISON STUDY: 11/12/2016 FINDINGS: There is an endotracheal tube 27 mm above the yuliana. There is a nasogastric tube within the stomach. There are persistent asymmetric bilateral airspace opacities, similar to the preceding study. No pneumothorax is visualized.[ IMPRESSION: Persistent bilateral pulmonary airspace opacities similar to the prior study given the differences in technique. Electronically signed by: Lam Graf M.D. 11/12/2016 7:05 AM Dictated Date/Time: 11/12/2016 7:02 AM
[2016-11-12] MEDS: IPRATROPIUM BROMIDE HFA INHALER INH SCH ×3 (07:51→16:05)
[2016-11-12] MEDS: ALBUTEROL HFA 8 GM INHALER INH SCH ×3 (07:51→16:05)
--- NOTE | 2016-11-12 08:00 | DIAGNOSTIC IMAGING REPORT ---
CHEST ONE VIEW PORTABLE HISTORY: s/p intubation COMPARISON: Chest 11/11/2016. FINDINGS: The endotracheal tube terminates 2.9 cm from the yuliana. Nasogastric tube terminates in the stomach. Bilateral airspace opacities persist. No pneumothorax. Probable trace bilateral pleural effusions. The heart is stable in size. IMPRESSION: 1. Satisfactory support line placement. 2. Bilateral airspace opacities, left greater than right, persist. Electronically signed by: Alireza Young M.D. 11/12/2016 7:59 AM Dictated Date/Time: 11/12/2016 7:57 AM
[2016-11-12] MEDS ORDERED: PANTOprazole SOD 40 MG TAB PO SCH (09:00)
[2016-11-12] MEDS ORDERED: MEGESTROL ACETATE 800 MG/20 ML UDP PO SCH (09:00)
[2016-11-12] MEDS: VANCOMYCIN INJ 800 MG in SODIUM CHLORIDE 0.9% 250ML 250 ML IV SCH ×2 (09:14→16:09)
[2016-11-12] MEDS: HYDROCORTISONE IV 50 MG in SYRINGE 0 ML IV SCH ×2 (09:14→16:09)
[2016-11-12] MEDS ORDERED: FUROSEMIDE 40 MG/4 ML VIAL IV STA (09:16)
[2016-11-12] MEDS ORDERED: POTASSIUM CHLORIDE 20 MEQ/15 ML UDC PO STA (09:18)
[2016-11-12] MEDS: SULFAMETHOXAZOLE/TRIMETHOPRIM DS 800/160MG TAB PO SCH ×2 (09:29→22:25)
[2016-11-12] MEDS ORDERED: FUROSEMIDE INJ 20 MG in SYRINGE 0 ML IV ONE (09:30)
[2016-11-12] MEDS ORDERED: PEPTAMEN INTENSE VHP 1000ML BAG OG SCH (09:45)
[2016-11-12] MEDS ORDERED: FENTANYL CITRATE INJ 50 MCG/1 ML 2 ML VIAL IV ONE (10:00)
--- NOTE | 2016-11-12 10:24 | Pharmacy Progress Note ---
Glycemic Control Intl Consult Date of Service Nov 12, 2016. Scope Glycemic Pharmacist consulted by Dr Cruz on 11/11/16 for glycemic control and to write orders per [facility] inpatient glycemic control protocol Objective Weight (Kilograms): 51.900 Accuchecks BSG (last 24hrs): Test 11/11/16 14:27 11/11/16 16:32 11/11/16 20:30 11/11/16 21:37 Random Glucose 218 mg/dl (70-99) Bedside Glucose 330 mg/dl (70-99) 90 mg/dl (70-99) 125 mg/dl (70-99) Test 11/11/16 21:58 11/12/16 02:18 11/12/16 05:24 11/12/16 06:40 Random Glucose 155 mg/dl (70-99) 128 mg/dl (70-99) Bedside Glucose 146 mg/dl (70-99) 109 mg/dl (70-99) Laboratory Data (last 24hrs) Test 11/11/16 14:27 11/11/16 21:58 11/12/16 05:24 Anion Gap 11.0 mmol/L 11.0 mmol/L 10.0 mmol/L BUN/Creatinine Ratio 22.8 28.3 34.2 Blood Urea Nitrogen 18 mg/dl 20 mg/dl 20 mg/dl Creatinine 0.80 mg/dl 0.69 mg/dl 0.58 mg/dl Potassium Level 3.7 mmol/L 3.4 mmol/L 3.5 mmol/L Sodium Level 137 mmol/L 138 mmol/L 142 mmol/L White Blood Count 17.68 K/uL 34.42 K/uL 18.85 K/uL Red Blood Count 3.49 M/uL 3.93 M/uL 3.48 M/uL Hemoglobin 10.2 g/dL 11.3 g/dL 9.8 g/dL Hematocrit 29.8 % 34.3 % 29.9 % Mean Corpuscular Volume 85.4 fL 87.3 fL 85.9 fL Mean Corpuscular Hemoglobin 29.2 pg 28.8 pg 28.2 pg Mean Corpuscular Hemoglobin Concent 34.2 g/dl 32.9 g/dl 32.8 g/dl Platelet Count 312 K/uL 481 K/uL 293 K/uL Mean Platelet Volume 8.4 fL 8.5 fL 8.4 fL Neutrophils (%) (Auto) 96.8 % 96.4 % Lymphocytes (%) (Auto) 2.0 % 1.6 % Monocytes (%) (Auto) 0.5 % 1.2 % Eosinophils (%) (Auto) 0.1 % 0.1 % Basophils (%) (Auto) 0.1 % 0.1 % Neutrophils # (Auto) 17.13 K/uL 18.17 K/uL Lymphocytes # (Auto) 0.35 K/uL 0.30 K/uL Monocytes # (Auto) 0.09 K/uL 0.23 K/uL Eosinophils # (Auto) 0.02 K/uL 0.02 K/uL Basophils # (Auto) 0.01 K/uL 0.01 K/uL Recent Pertinent Medications Outpatient Anti-diabetic Regimen: * N/A The patient is currently receiving: * Basal insulin: Lantus 10 units X 1 @ 1700 11/11/16 * Correctional Insulin: Novolog Correction per scale ACHS Goal Range: Low 120 mg/dL - High 160 mg/dL Correction Factor: 40 mg/dL/unit * Prandial insulin: Per carb ratio of 1 unit per 0 grams CHO consumed Risk Factors for Insulin Resistance: * Steroids: Hydrocortisone 50 mg IV every 8 hours * Infection: Vancomycin, Zosyn, Levaquin IV + Bactrim PO * Pressors: Levophed * Diet: NPO--> likely start trickle feeds today * Mechanical Ventilation: YES Assessment & Plan ASSESSMENT: * 76 yo M transferred from [facility], initiated on broad spectrum antibiotics and high dose IV steroids * BSGs spiked yesterday ~330 mg/dL around 1700 * Lantus 10 units given per pharmacy * Novolog initiated (correctional ONLY) * BSGs responded quickly, dropped to 90 mg/dL and stayed within goal range through the night * Pt is not a known diabetic as an outpatient and is experiencing stress/ steroid induced hyperglycemia * My plan will be to hold off on further Lantus dosing for now, and continue correctional Novolog only * Based on how BSGs respond to trickle feeds, I may add carb coverage tomorrow * Order A1c with labs tomorrow to assess if any underlying diabetes * ADA & AACE recommend a goal blood sugar range 140-180 mg/dl for the majority of critically ill & non-critically ill patients. However, more stringent targets may be selected in individual cases. PLAN FOR INPATIENT GLYCEMIC CONTROL: * Discontinue basal insulin at this time, restart if/when BSGs >180 mg/dL * Correctional Insulin with NOVOLOG per scale ACHS or Q6hrs while NPO * Goal Range: Low 140 mg/dL - High 180 mg/dL * Correction Factor: 40 mg/dL/unit * Nutritional / Prandial insulin per carb ratio of 1 unit per 0 grams CHO consumed * Assess A1c tomorrow AM * Please note that the plan above was derived based on current level of insulin resistance and hospital stress. These recommendations are appropriate for inpatient admission only. Plan of care upon discharge will need to be reassessed to avoid potential outpatient hypo/hyperglycemia. Thank you.
[2016-11-12] MEDS: PANTOprazole INJ 40 MG in SYRINGE 0 ML IV SCH (10:56)
[2016-11-12] MEDS: CHLORHEXIDINE GLUCONATE 0.12% 480 ML MT SCH ×2 (10:57→22:24)
[2016-11-12] MEDS: TUBE FEEDING WATER FLUSH NG SCH ×2 (11:06→17:15)
--- NOTE | 2016-11-12 11:26 | DIAGNOSTIC IMAGING REPORT ---
CHEST ONE VIEW PORTABLE CLINICAL HISTORY: s/p Right IJ central line placement tube position COMPARISON STUDY: 11/12/2016 6:43 AM FINDINGS: Endotracheal tube 2.5 cm above the yuliana. Central catheter place in superior vena cava. No evidence of pneumothorax. All remaining components of the study are unchanged. IMPRESSION: Central catheter place in superior vena cava. No evidence pneumothorax. Electronically signed by: Vincenzo Olvera M.D. 11/12/2016 11:24 AM Dictated Date/Time: 11/12/2016 11:21 AM
[2016-11-12 11:30] LABS: HEMATOCRIT 29.4 % (42-52)
--- NOTE | 2016-11-12 11:50 | Progress Note ---
Progress Note Date of Service Nov 12, 2016. Progress Note ID Consult Dictated #[id number] A/P: 1. b/l pna 2. Leukocytosis - likely multifactorial -Continue broad spectrum abx, follow bronch results -will follow, thank you
[2016-11-12 11:58] LABS: BUN/CREATININE RATIO 37.4 (10-20); CALCIUM 7.9 mg/dl (8.5-10.1); CREATININE 0.58 mg/dl (0.60-1.40); POTASSIUM 3.7 mmol/L (3.5-5.1)
--- NOTE | 2016-11-12 12:05 | ECHOCARDIOGRAM REPORT ---
*NOTICE TO RECEIVING LIBERTARIAN AGENCY This information is strictly Confidential and protected under [place] law. [place] law prohibits you from making any further disclosure of this information unless further disclosure is expressly permitted by the written consent of the person to whom it pertains or is authorized by law. A general authorization for the release of medical or other information is not sufficient for this purpose. Hospital accepts no responsibility if the information is made available to any other person, INCLUDING THE PATIENT. Interpretation Summary * Name: FRANDY MEDRANO Study Date: 11/12/2016 09:45 AM BP: 101/48 mmHg * [facility] HR: 109 * : 1940 (M/d/yyyy) Gender: Male Height: 67 in * Age: 76 yrs Ethnicity: Weight: 114 lb * Ordering Physician: Tania Cruz * Referring Physician: Amrit Adams D.O. * Performed By: Adeline Escobar RDCS * * Reason For Study: RESP FAILURE, LUNG CA * BSA: 1.6 m2 * History: RESP FAILURE, LUNG CA * -- Conclusions -- * Left ventricular systolic function is mildly reduced. * No regional wall motion abnormalities noted. * Ejection fraction = 40% * There is mild concentric left ventricular hypertrophy. * There is mild tricuspid regurgitation. Procedure Details * A contrast injection of Definity was performed to improve assessment of LV function. * Contrast was injected into an intravenous site in the right arm. * One vial of Definity ultrasound contrast was diluted in normal saline to a total volume of 10 ml. A total of '2' ml of solution was administered during imaging. * Lot # [id number] of Definity utilized for procedure. * Expiration date 1 OCT 25. * The attending nurse who injected the contrast agent was CARLOS MCDOWELL RN. Left Ventricle * The left ventricle is normal in size. * There is mild concentric left ventricular hypertrophy. * Ejection fraction = 40% * Left ventricular systolic function is mildly reduced. * No regional wall motion abnormalities noted. Right Ventricle * The right ventricle is normal in size and function. Atria * The left atrial size is normal. * Right atrial size is normal. * No ASD detected; PFO is not assessed. Mitral Valve * The mitral valve is grossly normal. * There is no mitral valve stenosis. * Significant mitral regurgitation is absent. Tricuspid Valve * The tricuspid valve is not well visualized, but is grossly normal. * There is mild tricuspid regurgitation. Aortic Valve * The aortic valve is not well visualized. * The aortic valve opens well. * No hemodynamically significant valvular aortic stenosis. * There is no significant aortic regurgitation. Pulmonic Valve * The pulmonic valve is not well visualized. Great Vessels * The aortic root is normal size. Pericardium/Pleural * There is no pericardial effusion. MMode 2D Measurements and Calculations IVSd 0.98 cm IVSs 1.2 cm LVIDd 3.2 cm LVIDs 2.5 cm LVPWd 1.1 cm LVPWs 1.3 cm IVS/LVPW 0.87 FS 22.9 % EDV(Teich) 42.4 ml ESV(Teich) 22.4 ml EF(Teich) 47.3 % EDV(cubed) 34.2 ml ESV(cubed) 15.7 ml EF(cubed) 54.3 % % IVS thick 18.0 % % LVPW thick 18.5 % LV mass(C)d 100.3 grams LV mass(C)dI 62.9 grams/m\S\2 LV mass(C)s 91.7 grams LV mass(C)sI 57.5 grams/m\S\2 SV(Teich) 20.1 ml SI(Teich) 12.6 ml/m\S\2 SV(cubed) 18.6 ml SI(cubed) 11.6 ml/m\S\2 LA dimension 2.1 cm Doppler Measurements and Calculations Ao V2 max 75.1 cm/sec Ao max PG 2.3 mmHg Ao max PG (full) 1.2 mmHg LV V1 max PG 1.0 mmHg LV V1 max 51.2 cm/sec TR max liliana 246.0 cm/sec
--- NOTE | 2016-11-12 12:43 | CRITICAL CARE PROGRESS NOTE ---
DATE: 11/12/2016 DATE: 11/12/2016. HISTORY OF PRESENT ILLNESS: The patient is a 76-year-old Vietnamese gentleman transferred from [facility] yesterday for acute hypoxemic respiratory failure. He has a history of nonsmall cell lung carcinoma and is status post radiation and chemotherapy treatment which ended in September. He was transferred to the intensive care unit last evening due to ongoing oxygen requirements of 100% nonrebreather or 50 liter high flow nasal cannula with marginal oxygen saturations. I was called around 9:30 p.m. last night that he had had an acute decompensation with oxygen saturations in the 80s after getting chest percussion. He was placed on BiPAP without improvement of his saturations. I arrived around 9:45 p.m. and intubated him with an 8.0 endotracheal tube. He underwent bronchoscopy which was unrevealing with the exception of a lot of pink watery sputum. BALs were performed. Radial arterial line was placed as well. This morning he is sedated on propofol 20 mcg per kilogram per minute and fentanyl 50 mcg per hour. The triple lumen catheter was recently placed and required increasing those sedatives transiently. He is not having any significant endotracheal tube secretions and has not had a bowel movement. His care was discussed in detail on multidisciplinary rounds. He was placed on Levophed last night which was down to 0.02 mcg per kilogram per minute this morning. PHYSICAL EXAMINATION: VITAL SIGNS: Temperature 36.9, heart rate 114, respiratory rate 24, blood pressure 78-105/40s-60s. Oxygen saturation 99% on ventilator, assist control rate 20, tidal volume 450, FiO2 60%, PEEP 15. A 24-hour fluid balance negative 1.4 liters. GENERAL: He will open his eyes and move all 4 extremities to command with the use of his daughter as an tractor engine assembler. LUNGS: Have bibasilar rales, no rhonchi or wheezes. HEART: Tachycardic, regular. ABDOMEN: Soft, mildly distended, nontender. Active bowel sounds. EXTREMITIES: Cachectic, warm. No edema. LABORATORY DATA: White blood cell count 18.85, hemoglobin 9.8, hematocrit 29.9, platelets 293, pH 7.35, pCO2 of 48, pO2 96, HCO3 27. Sodium 142, potassium 3.5, chloride 106, CO2 26, BUN 20, creatinine 0.58, blood sugar 128. LFTs within normal limits. Troponin I 3.2. C-reactive protein 18.7. Albumin 1.5. Procalcitonin 8.01. Lactic acid 1.2. MICROBIOLOGY DATA has been reviewed. Gram stains on the 3 BALs show moderate white blood cells, no organisms, fungal smears are all negative. Sputum Gram stain from yesterday shows rare gram negative bacilli and rare negative cocci. He has had multiple chest x-rays over the past 12 hours, all of which have been reviewed. There was progression of his bilateral infiltrates which seem to have stabilized overnight. MEDICATIONS: Acetaminophen, Ventolin, chlorhexidine, Lovenox, fentanyl infusion, p.r.n. fentanyl, hydrocortisone, Atrovent, Levaquin day 2, norepinephrine, Zofran, Protonix, Zosyn day 2, propofol, Bactrim, vancomycin. IMPRESSION: 1. Acute hypoxemic respiratory failure. He has some gram negative organisms in his sputum, but surprisingly his BAL last night was not at all impressive for any kind of mucus plugging or sputum production. He has been diuresed and is covered with broad spectrum antibiotics. Although he is being treated for pneumonia, I think there may be a component of cardiogenic pulmonary edema. His troponin is elevated this morning. Formal echocardiogram result is pending. 2. Nonsmall cell lung carcinoma stage [id number]. 3. Hyperglycemia, improved. 4. Malnutrition. 5. Recent steroid use surrounding his chemotherapy, he is on stress dose steroids. 6. Hypotension. I think this may be a combination of shock and the sedative effect of his medications. 7. Acute anemia, no signs of active bleeding. 8. Elevated troponin. PLAN: NEUROLOGIC: Titrate the propofol back down after line placement. Try to minimize sedatives while still keeping him comfortable on the ventilator. PULMONARY: His plateau pressure was 22 this morning. I have given him another dose of Lasix. I will check another arterial blood gas this afternoon. His PEEP is being weaned slowly. Continue broad-spectrum antibiotics and consider CT of the chest. Await any recommendations from the pulmonary service. INFECTIOUS DISEASE: He is being covered very broadly for possible pneumonia in this patient who is immunosuppressed. After his bronchoscopy last night I am more convinced that cardiogenic pulmonary edema may be adding to his hypoxemia. He certainly presented with a clinical picture that was consistent with pneumonia. The infectious disease service has been consulted. Consider discontinuing the Bactrim and follow cultures. Await studies regarding tuberculosis. CARDIOVASCULAR: Wean the Levophed and await echocardiogram. Trend the troponins. With his drop in his hemoglobin I am reluctant to start him on any IV heparin presently. EKG was reviewed and shows no acute changes. GASTROINTESTINAL: Begin trickle feeds today. Keep at 10 mL per hour and reevaluate tomorrow. Continue Protonix for GI prophylaxis. Consider Colace. HEMATOLOGY: Trend the H\H's and watch for signs of bleeding. Continue Lovenox for DVT prophylaxis. ENDOCRINE: Begin sliding scale insulin should his blood sugar be above 180 consecutively twice. RENAL: No acute issues presently. Replete electrolytes as needed. I discussed the patient's care with his daughter who was at the bedside. I had multiple discussions with her last night after he was intubated. Her questions were answered and support was provided. Critical care time excluding procedures is 60 minutes. MTDD
[2016-11-12 13:29] LABS: ISTAT ARTERIAL BLOOD GAS HCO3 26 meq/L (19-24); ISTAT ARTERIAL BLOOD GAS PCO2 43 mmHg (35-46); ISTAT ARTERIAL BLOOD GAS PO2 63 mmHg (80-95); ISTAT ARTERIAL BLOOD GAS pH 7.39 (7.35-7.45); ISTAT CARBON DIOXIDE 27 mEq/l (24-31); ISTAT DELIVERY SYSTEM Ventilator; ISTAT FIO2 60 %; ISTAT PEEP 13; ISTAT RATE 20; ISTAT SITE Art Line; VE 10.2; Vt 450
--- NOTE | 2016-11-12 14:06 | Procedure Note ---
Procedure Note Date of Service Nov 12, 2016. (Loren Harris MD) Procedure Note Right IJ Central Venous Catheter Catheter Type: Triple lumen catheter Location: Right Internal jugular Verbal consent was obtained after the risks and benefits were explained, including vessel injury, bleeding, scarring, infection, pain. A time out was taken and the correct patient and site was identified. The patient was placed in the supine position and the skin was prepped with chlorhexidine and full sterile drapes were applied. The proper landmarks were identified with ultrasound, anesthetized with 1% lidocaine without epinephrine, and the needle was inserted through the skin . The needle was carefully advanced into blood vessel lumen with ultrasound guidance in first pass. The guidewire was placed and adjusted several times. The vessel was dilated and the catheter was placed. It was sutured into position. There was good blood return from all ports. The patient tolerated the procedure well and there were no complications. (Loren Harris MD) Attending Mixer Wet Pour: I was present and at the bedside in standard sterile garb for the entire procedure other than suturing of the catheter. A consent for was signed prior to the procedure. The Arrow CVC kit was used for the entire procedure other than flushes and Seldinger technique was used throughout. The bedside RN applied the dressing. The patient tolerated the procedure well - F/U CXR showed no PTX and the tip of the catheter in the SVC. (Tania Cruz MD)
--- NOTE | 2016-11-12 14:28 | INFECT. DISEASE CONSULTATION ---
DATE OF CONSULTATION: 11/12/2016 REQUESTING PHYSICIAN: Dr. Adams. CONSULTATION IS FOLLOWS: This is a 76-year-old gentleman who was transferred from [facility] after he was admitted on the with worsening shortness of breath and fever of 103 degrees. His daughter is at the bedside and she provides his history. She states that he was doing well up until dinnertime on the . He was taken to the hospital and was diagnosed with pneumonia. He was admitted to the hospital at [facility]. He was started on vancomycin and cefepime. He continued to have worsening respiratory distress and was subsequently transferred to [facility] yesterday. He continued to have worsening respiratory distress and was intubated here. He did undergo bronchoscopy yesterday. Results of this are pending. He is currently sedated on a ventilator and is unable to provide any review of systems. His daughter states that he was being followed as an outpatient for worsening cough and shortness of breath, which had developed over the past week to 14 days. He was given Levaquin and prednisone as an outpatient. He initially was better, but then had acute worsening. He denies any hemoptysis at home. He had no fevers prior to the day of admission. He was not complaining of any chest pain per the daughter. 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 He was on chemo and radiation. He was having some intermittent hemoptysis per the daughter, but that had stopped after chemotherapy. He has had some weight loss associated with this. He did immigrated here from [place] 5 years ago. His family states he had reportedly negative for tuberculosis studies. An interferon was obtained here and results are pending. He did have a leukocytosis of 17 on admission. This did increase to 34 yesterday and is back to 18.8 today. He has been started on vancomycin, Zosyn, Bactrim and Levaquin. He is also on IV steroids and norepinephrine for blood pressure support. His troponin is markedly elevated at 3.2. His CRP is 18.7. Legionella antigen is pending. A sputum culture from the is pending. Bronchoscopy cultures are pending as well as fungal and AFB smears. His most recent x-ray shows persistent opacity in the right upper lobe with no infiltrate in the left lower lobe. His most recent CT of the chest was done on October 27, which showed a right upper lobe mass, which had new cavitation, but had decreased in size. He also had significant surrounding lymphadenopathy. He currently appears to be tolerating antibiotics well. He is afebrile. He is hypotensive on the ventilator. PAST MEDICAL HISTORY: Significant for lung adenocarcinoma with chemo and radiation, which was completed in September of this year, history of coronary artery disease with suspected WA in the past, osteoarthritis, anemia, BPH and bilateral cataracts. PAST SURGICAL HISTORY: Significant for eyelid surgery. FAMILY HISTORY: Noncontributory. There is no known TB history. SOCIAL HISTORY: Significant for history of tobacco use. He is and lives with family. His daughter said he has no sick contacts. He did have flu vaccine this year. She states he does have a yearly flu vaccines. There is no known TB exposure. It is reported that he has tested negative for TB in the past. ALLERGIES: INCLUDE FINASTERIDE. CURRENT MEDICATIONS: Include multivitamin, vancomycin, Protonix, fentanyl, Bactrim, Atrovent, albuterol, propofol, norepinephrine, Zosyn, Lovenox, Levaquin, insulin, hydrocortisone, Tylenol and Zofran. PHYSICAL EXAMINATION: VITAL SIGNS: He is afebrile, pulse 110, respiratory rate is 33, blood pressure is 83/54, and oxygen saturation is 99% on 50% FIO2. GENERAL: He is sedated on the ventilator. HEART: Regular and I do not auscultate a murmur. There are breath sounds bilaterally. The right IJ triple lumen catheter is clean, dry and intact. ABDOMEN: Nondistended. There is no edema. SKIN: Without rash. He is cachectic appearing. LABORATORY STUDIES: CBC today reveals a white blood cell count of 18.8, hemoglobin 9.8, and platelets are 293. Chemistry panel reveals a sodium of 142, potassium 3.5, chloride 106, bicarbonate 26, BUN 20, creatinine 0.5, and glucose is 128. Troponin is 3.2. LFTs are within normal limits. A pro-calcitonin is elevated at 8.0. Lactic acid was initially 3.6 and has been trending down. A urinalysis was unremarkable. Legionella antigen as well as a QuantiFERON are pending. He has had multiple cultures done of the sputum from the and pending. Bronch cultures are pending including fungal smears as well as AFB smears. Most recent chest x-ray was done this morning and shows central catheter in place with no pneumothorax. He has continued persistent bilateral pulmonary airspace opacities. ASSESSMENT AND PLAN: 1. Bilateral pneumonia. 2. Leukocytosis, likely multifactorial. At this time, he will be continued on broad-spectrum antibiotics, pending the results of his bronchoscopy cultures, QuantiFERON and legionella urinary antigen. He will be continued with supportive care. Further antibiotic recommendations will be made, pending bronchoscopy results. Thank you for this consultation. KYLIE
--- NOTE | 2016-11-12 15:37 | Progress Note ---
Subjective Date of Service: Nov 12, 2016. Subjective Pt evaluation today including: conversation w/ patient, conversation w/ family , physical exam, lab review, review of studies, conversation w/ program consultant, review of inpatient medication list Pain: no pain PO Intake: OG tube feeds Voiding: arzate catheter in place patient's respiratory status declined last evening, he was transferred down to the ICU around 5pm to watch closer around 10pm his saturations dropped and he was placed on BIPAP retail brand ambassador came in to intubate patient, emergent bronchoscopy performed, arterial line placed this morning he was agitated on the ventilator and BP had actually dropped, he required Levophed to maintain MAP > 65 echocardiogram performed, low EF at 40% and troponin bumped to 3.2, trended back down discussed case with retail brand ambassador and reviewed notes from ID updated daughter at the bedside, all questions answered Problem List Medical Problems: (1) Anemia Status: Acute (2) Chronic subdural hematoma Status: Acute (3) Lung cancer Status: Acute Review of Systems cannot review in detail due to sedation and language barrier, patient on ventilator Medications Current Inpatient Medications Medications (Trade) Dose Ordered Sig/Cindy Route Start Time Stop Time Status Last Admin Dose Admin Enoxaparin Sodium (Lovenox Inj) 40 mg Q24H SC 11/11/16 21:00 12/11/16 20:59 11/11/16 20:37 40 MG Acetaminophen (Tylenol Tab) 650 mg Q4H PRN PO 11/11/16 14:00 12/11/16 13:59 Ondansetron HCl 4 mg 4 mg Q6H PRN IV 11/11/16 14:00 12/11/16 13:59 11/12/16 10:56 4 MG Hydrocortisone Sodium Succinate/ Syringe (Solu-Cortef IV/ Syringe) 1 ml @ 4 mls/min Q8H IV 11/11/16 16:00 12/11/16 15:59 11/12/16 09:14 4 MLS/MIN Piperacillin Sod/ Tazobactam Sod (Consult) 1 ea UD PRN N/A 11/11/16 14:30 12/11/16 14:29 Vancomycin HCl 1 ea 1 ea UD PRN N/A 11/11/16 14:30 12/11/16 14:29 Piperacillin Sod/ Tazobactam Sod 3.375 gm/Dextrose 115 ml @ 28.75 mls/ hr Q8H IV 11/11/16 22:00 11/18/16 21:59 11/12/16 14:13 28.75 MLS/HR Levofloxacin/Prmx (Levaquin / D5W/ Premixed D5W) 150 ml @ 100 mls/hr DAILY@1700 IV 11/11/16 17:00 11/18/16 16:59 11/11/16 16:32 100 MLS/HR Insulin Aspart (novoLOG ASPART) SLIDING SCALE G... ACHS SC 11/11/16 16:15 12/11/16 16:14 11/11/16 18:26 5 UNITS Glucose (Glucose 40% Gel) 15-30 GRAMS 15 GRAMS... UD PRN PO 11/11/16 16:15 12/11/16 16:14 Glucose (Glucose Chew Tab) 4-8 Tablets 4 Tabl... UD PRN PO 11/11/16 16:15 12/11/16 16:14 Dextrose (Dextrose 50% 50ML Syringe) 25-50ML OF 50% DW IV FOR... UD PRN IV 11/11/16 16:15 12/11/16 16:14 Glucagon (Glucagon Inj) 1 mg UD PRN SQ 11/11/16 16:15 12/11/16 16:14 Miscellaneous Information 1 ea 1 ea UD N/A 11/11/16 19:09 12/11/16 19:08 Fentanyl Citrate (Fentanyl Drip 1250MCG/250 Nss) 250 ml @ 0 mls/hr Q0M PRN IV 11/11/16 22:45 11/25/16 22:44 11/11/16 22:49 10 MLS/HR Propofol 1 dose 1 dose UD PRN IV 11/11/16 22:45 11/14/16 22:44 11/12/16 06:28 1 DOSE Norepinephrine Bitartrate/ Dextrose (Levophed Inj/ D5W 500ml) 508 ml @ 0 mls/hr Q0M PRN IV 11/11/16 22:33 12/11/16 22:32 Chlorhexidine Gluconate (Peridex Oral Soln) 15 ml BID MT 11/12/16 09:00 12/12/16 08:59 11/12/16 10:57 15 ML Trimethoprim/ Sulfamethoxazole (Septra Ds 800/ 160MG Tab) 1 tab Q12 PO 11/12/16 09:00 11/19/16 08:59 11/12/16 09:29 1 TAB Ipratropium [place] (Atrovent Hfa Inhaler) 4 puffs QIDR INH 11/12/16 08:00 12/12/16 07:59 11/12/16 11:36 4 PUFFS Albuterol 4 puffs 4 puffs QIDR INH 11/12/16 08:00 12/12/16 07:59 11/12/16 11:36 4 PUFFS Pantoprazole Sodium/Syringe (Protonix Inj/ Syringe) 10 ml @ 5 mls/min DAILY@11 IV 11/12/16 11:00 12/12/16 10:59 11/12/16 10:56 5 MLS/MIN Fentanyl Citrate (Fentanyl Inj) 50 mcg Q3H PRN IV 11/12/16 10:00 11/26/16 09:59 Enteral Nutritional Formula (Peptamen Intense VHP) 1,000 ml UD OG 11/12/16 09:45 12/12/16 09:44 11/12/16 11:06 1,000 ML Multivitamins Therapeutic (Cerovite Liquid) 15 ml QAM PO 11/13/16 10:00 12/13/16 09:59 Sterile Water 1 ea 1 ea Q6 NG 11/12/16 12:00 12/12/16 11:59 11/12/16 11:06 1 EA Vancomycin HCl/ Sodium Chloride (Vancomycin Inj/ Nss 250ml) 266 ml @ 125 mls/hr Q8H IV 11/12/16 16:00 11/19/16 15:59 Objective Vital Signs Date Time Temp Pulse Resp B/P Pulse Ox O2 Delivery O2 Flow Rate FiO2 11/12/16 13:30 36.8 110 20 77/54 99 Mechanical Ventilator 50 94/45 11/12/16 12:30 116 23 90/43 91 11/12/16 12:00 115 22 105/46 94 11/12/16 11:37 80 11/12/16 11:30 Mechanical Ventilator 60 11/12/16 11:30 36.8 110 20 75/56 99 Mechanical Ventilator 50 94/42 11/12/16 11:30 112 20 101/42 93 11/12/16 11:25 112 21 98/42 93 11/12/16 11:12 109 20 101/48 93 11/12/16 11:00 108 20 77/36 93 11/12/16 10:30 100 22 93/45 92 11/12/16 10:00 111 28 83/55 91 11/12/16 09:30 36.7 110 33 83/54 99 Mechanical Ventilator 50 94/43 11/12/16 09:30 120 39 90/59 85 11/12/16 09:00 109 23 110/54 93 11/12/16 08:30 110 22 96/48 93 11/12/16 08:00 109 25 97/49 99 11/12/16 08:00 Mechanical Ventilator 60 11/12/16 07:49 36.7 111 24 83/59 99 Mechanical Ventilator 50.0 80 111 101/48 11/12/16 07:49 Mechanical Ventilator 50.0 80 11/12/16 07:31 80 11/12/16 07:30 112 25 83/58 98 11/12/16 07:00 114 25 107/45 99 11/12/16 06:00 114 24 105/46 99 Mechanical Ventilator 90 11/12/16 05:15 90 11/12/16 04:00 36.6 117 23 107/57 98 Mechanical Ventilator 90 11/12/16 04:00 99 Mechanical Ventilator 100 11/12/16 02:00 122 23 78/63 99 Mechanical Ventilator 90 11/12/16 01:45 100 11/12/16 00:00 36.5 133 22 89/69 93 Mechanical Ventilator 100 11/11/16 23:59 99 Mechanical Ventilator 100 11/11/16 22:45 137 18 103/57 91 Mechanical Ventilator 100 11/11/16 22:40 137 28 102/60 90 11/11/16 22:35 137 31 97/59 90 11/11/16 22:25 138 26 94/61 89 11/11/16 22:20 100 11/11/16 22:12 157 12 102/58 67 11/11/16 22:00 149 38 136/81 85 11/11/16 21:29 144 41 151/95 88 BiPAP 100 11/11/16 21:26 143 90 100 11/11/16 20:30 131 41 89 11/11/16 20:17 115 22 94 Nasal Cannula 50.0 95 11/11/16 20:13 36.6 120 31 113/80 97 High Flow Oxygen 11/11/16 20:00 High Flow Oxygen 50.0 11/11/16 18:29 119 30 131/85 91 High Flow Oxygen 50.0 11/11/16 17:04 36.9 112 22 92 50.0 11/11/16 16:45 112 22 92 Nasal Cannula 50.0 92 11/11/16 16:26 36.9 112 18 124/66 96 Physical Exam General Appearance: + mild distress, + thin Eyes: normal inspection, EOMI, sclerae normal Neck: supple, no adenopathy, no JVD, + pertinent finding (intubated) Respiratory/Chest: chest non-tender, + decreased breath sounds, + accessory muscle use, + crackles, + rhonchi Cardiovascular: no edema, no gallop, no JVD, no murmur, + tachycardia Abdomen: normal bowel sounds, non tender, soft, no organomegaly Extremities: normal range of motion, non-tender, normal inspection, no pedal edema, no calf tenderness, pelvis stable Neurologic/Psychiatric: 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 There is a nasogastric tube within the stomach. There are persistent asymmetric bilateral airspace opacities, similar to the preceding study. No pneumothorax is visualized.[ IMPRESSION: Persistent bilateral pulmonary airspace opacities similar to the prior study given the differences in technique. Echo -- Conclusions -- Left ventricular systolic function is mildly reduced. No regional wall motion abnormalities noted. Ejection fraction = 40% There is mild concentric left ventricular hypertrophy. There is mild tricuspid regurgitation. Last 24 Hours Test 11/11/16 16:32 11/11/16 16:38 11/11/16 20:30 11/11/16 21:17 Bedside Glucose 330 mg/dl 90 mg/dl Blood Gas Sample Site R Radial Bedside Blood Gas pH (LAB) 7.40 Bedside Blood Gas pCO2 (LAB) 40 mmHg Bedside Blood Gas pO2 (LAB) 41 mmHg Bedside Blood Gas HCO3 (LAB) 25 meq/L Bedside Blood Gas Total CO2 26 mEq/l Bedside Blood Gas Base Excess (LAB) 0.0 meq/L Bedside Blood Gas O2 Saturation 77.0 % James Test Pass Oxygen Delivery Device Cannula Test 11/11/16 21:37 11/11/16 21:58 11/12/16 00:27 11/12/16 02:18 Bedside Glucose 125 mg/dl 146 mg/dl White Blood Count 34.42 K/uL Red Blood Count 3.93 M/uL Hemoglobin 11.3 g/dL Hematocrit 34.3 % Mean Corpuscular Volume 87.3 fL Mean Corpuscular Hemoglobin 28.8 pg Mean Corpuscular Hemoglobin Concent 32.9 g/dl Platelet Count 481 K/uL Mean Platelet Volume 8.5 fL RDW Standard Deviation 57.7 fL RDW Coefficient of Variation 17.9 % Neutrophils % (Manual) 96.5 % Lymphocytes % (Manual) 2.6 % Monocytes % (Manual) 0.9 % Neutrophils # (Manual) 33.22 K/uL Total Absolute Neutrophils 33.22 K/uL Lymphocytes # (Manual) 0.89 K/uL Total Absolute Lymphocytes 0.89 K/uL Monocytes # (Manual) 0.31 K/uL Polychromasia 1+ Echinocytes 1+ Schistocytes OCCASIONAL Sodium Level 138 mmol/L Potassium Level 3.4 mmol/L Chloride Level 103 mmol/L Carbon Dioxide Level 24 mmol/L Anion Gap 11.0 mmol/L Blood Urea Nitrogen 20 mg/dl Creatinine 0.69 mg/dl Est Creatinine Clear Calc Drug Dose 68.9 ml/min Estimated GFR () 108.4 Estimated GFR (Non- 93.5 BUN/Creatinine Ratio 28.3 Random Glucose 155 mg/dl Lactic Acid Level 3.2 mmol/L Calcium Level 8.5 mg/dl Blood Gas Sample Site Art Line Bedside Blood Gas pH (LAB) 7.32 Bedside Blood Gas pCO2 (LAB) 46 mmHg Bedside Blood Gas pO2 (LAB) 72 mmHg Bedside Blood Gas HCO3 (LAB) 24 meq/L Bedside Blood Gas Total CO2 25 mEq/l Bedside Blood Gas Base Excess (LAB) -2.0 meq/L Bedside Blood Gas O2 Saturation 93.0 % James Test NA Oxygen Delivery Device Ventilator Bedside Oxygen Rate (breaths/min) 18 Blood Gas Minute Ventilation 11.9 Bedside FiO2 100 % Blood Gas Tidal Volume 450 Blood Gas PEEP 15 Test 11/12/16 05:15 11/12/16 05:24 11/12/16 06:15 11/12/16 06:40 Troponin I 3.290 ng/ml White Blood Count 18.85 K/uL Red Blood Count 3.48 M/uL Hemoglobin 9.8 g/dL Hematocrit 29.9 % Mean Corpuscular Volume 85.9 fL Mean Corpuscular Hemoglobin 28.2 pg Mean Corpuscular Hemoglobin Concent 32.8 g/dl Platelet Count 293 K/uL Mean Platelet Volume 8.4 fL Neutrophils (%) (Auto) 96.4 % Lymphocytes (%) (Auto) 1.6 % Monocytes (%) (Auto) 1.2 % Eosinophils (%) (Auto) 0.1 % Basophils (%) (Auto) 0.1 % Neutrophils # (Auto) 18.17 K/uL Lymphocytes # (Auto) 0.30 K/uL Monocytes # (Auto) 0.23 K/uL Eosinophils # (Auto) 0.02 K/uL Basophils # (Auto) 0.01 K/uL RDW Standard Deviation 56.0 fL RDW Coefficient of Variation 17.7 % Immature Granulocyte % (Auto) 0.6 % Immature Granulocyte # (Auto) 0.12 K/uL Polychromasia 1+ Sodium Level 142 mmol/L Potassium Level 3.5 mmol/L Chloride Level 106 mmol/L Carbon Dioxide Level 26 mmol/L Anion Gap 10.0 mmol/L Blood Urea Nitrogen 20 mg/dl Creatinine 0.58 mg/dl Est Creatinine Clear Calc Drug Dose 82.0 ml/min Estimated GFR () 116.4 Estimated GFR (Non- 100.4 BUN/Creatinine Ratio 34.2 Random Glucose 128 mg/dl Lactic Acid Level 1.2 mmol/L Calcium Level 7.4 mg/dl Phosphorus Level 3.6 mg/dl Magnesium Level 2.0 mg/dl Total Bilirubin 0.3 mg/dl Direct Bilirubin 0.1 mg/dl Aspartate Amino Transf (AST/SGOT) 33 U/L Alanine Aminotransferase (ALT/SGPT) 32 U/L Alkaline Phosphatase 90 U/L C-Reactive Protein 18.70 mg/dl Total Protein 6.7 gm/dl Albumin 1.5 gm/dl Procalcitonin 8.01 ng/mL Blood Gas Sample Site Art Line Bedside Blood Gas pH (LAB) 7.35 Bedside Blood Gas pCO2 (LAB) 48 mmHg Bedside Blood Gas pO2 (LAB) 96 mmHg Bedside Blood Gas HCO3 (LAB) 27 meq/L Bedside Blood Gas Total CO2 28 mEq/l Bedside Blood Gas Base Excess (LAB) 1.0 meq/L Bedside Blood Gas O2 Saturation 97.0 % James Test NA Oxygen Delivery Device Ventilator Bedside Oxygen Rate (breaths/min) 20 Blood Gas Minute Ventilation 10.7 Bedside FiO2 80 % Blood Gas Tidal Volume 450 Blood Gas PEEP 15 Bedside Glucose 109 mg/dl Test 11/12/16 11:10 11/12/16 11:15 11/12/16 13:16 Bedside Glucose 95 mg/dl Hemoglobin 9.7 g/dL Hematocrit 29.4 % Sodium Level 141 mmol/L Potassium Level 3.7 mmol/L Chloride Level 107 mmol/L Carbon Dioxide Level 24 mmol/L Anion Gap 10.0 mmol/L Blood Urea Nitrogen 22 mg/dl Creatinine 0.58 mg/dl Est Creatinine Clear Calc Drug Dose 82.0 ml/min Estimated GFR () 116.4 Estimated GFR (Non- 100.4 BUN/Creatinine Ratio 37.4 Random Glucose 103 mg/dl Calcium Level 7.9 mg/dl Troponin I 2.320 ng/ml Blood Gas Sample Site Art Line Bedside Blood Gas pH (LAB) 7.39 Bedside Blood Gas pCO2 (LAB) 43 mmHg Bedside Blood Gas pO2 (LAB) 63 mmHg Bedside Blood Gas HCO3 (LAB) 26 meq/L Bedside Blood Gas Total CO2 27 mEq/l Bedside Blood Gas Base Excess (LAB) 1.0 meq/L Bedside Blood Gas O2 Saturation 91.0 % James Test NA Oxygen Delivery Device Ventilator Bedside Oxygen Rate (breaths/min) 20 Blood Gas Minute Ventilation 10.2 Bedside FiO2 60 % Blood Gas Tidal Volume 450 Blood Gas PEEP 13 Assessment and Plan 76 yo male with stage IIIb right sided adenocarcinoma s/p chemo and radiation who presents with bilateral pneumonia and acute respiratory failure. Shortly after admission his respiratory status declined and he was transferred to ICU and later intubated due to severe hypoxia despite high FiO2. - Acute hypoxic respiratory failure, possible ARDS: mechanical ventilation, intubated on 11/11 at night management per ICU sedation with Propofol and PRN fentanyl fluids stopped, using Lasix PRN to keep lungs on the dry side - Bilateral pneumonia, HCAP since he failed outpatient antibiotics and is cancer patient Vancomycin, Zosyn and Levaquin, will continue these, appreciate ID consult legionella antigen sent, bronchial lavage cultures sent, Quantiferon gold sent no mucous plugging or increased secretions seen with bronchoscopy? - Septic shock not POA, developed later in admission: continue Levophed for MAP > 65, central line placed continue stress dose Hydrocortisone - Demand ischemia vs NSTEMI: troponin mike to 3.2, trending down, no EKG changes , never had chest pain echo with reduced EF of 40%, global hypokinesis, no significant valve disease - Anemia: dropped overnight, no overt signs of bleeding, continue to monitor - Stage IIIb lung adenocarcinoma: completed chemo and radiation will follow up with Dr. Tinoco for restaging once he recovers from pneumonia - DVT prophylaxis: Lovenox - GI prophylaxis: Protonix IV, tube feeds Please note that 40 minutes spent with patient today
[2016-11-12] MEDS: LEVOFLOXACIN 750MG / D5W IV SCH (17:00)
[2016-11-12 17:40] LABS: HEMATOCRIT 29.1 % (42-52)
[2016-11-12] MEDS: FENTANYL 1250MCG/250ML NSS 250 ML IV PRN (17:44)
[2016-11-12] MEDS ORDERED: NURSING VERBAL MED ORDER ONE (22:15)
[2016-11-12] MEDS: FENTANYL CITRATE INJ 50 MCG/1 ML 2 ML VIAL IV PRN (22:23)
[2016-11-12] MEDS: ENOXAPARIN 40 MG/0.4 ML SYR SC SCH (22:25)
[2016-11-13] VITALS (64 sets, daily range): BP systolic 76–129; BP diastolic 43–88; PULSE 86–140; TEMP 36.6–37; O2SAT 89–99
[2016-11-13] MEDS: VANCOMYCIN INJ 800 MG in SODIUM CHLORIDE 0.9% 250ML 250 ML IV SCH ×4 (00:31→23:50)
[2016-11-13] MEDS: HYDROCORTISONE IV 50 MG in SYRINGE 0 ML IV SCH ×2 (00:32→07:59)
[2016-11-13] MEDS ORDERED: VANCOMYCIN TROUGH ONE (03:30)
[2016-11-13] MEDS: NOREPINEPHRINE BIT INJ 8 MG in DEXTROSE 5% 500ML 500 ML IV PRN ×2 (03:37→14:03)
[2016-11-13] MEDS: FENTANYL CITRATE INJ 50 MCG/1 ML 2 ML VIAL IV PRN ×2 (04:18→18:11)
[2016-11-13] MEDS: PROPOFOL IV EMULSION 10 MG/ML 100 ML VIAL IV PRN ×3 (04:19→23:20)
[2016-11-13] MEDS: TUBE FEEDING WATER FLUSH NG SCH ×5 (06:04→23:51)
[2016-11-13] MEDS: PIPERACILL/TAZOBAC IV 3.375 GM in DEXTROSE 5% 100ML IV SCH ×3 (06:06→21:59)
[2016-11-13] MEDS: INSULIN ASPART 100 UNITS/ML 3 ML PEN SC SCH ×4 (06:45→22:24)
--- NOTE | 2016-11-13 07:05 | DIAGNOSTIC IMAGING REPORT ---
CHEST ONE VIEW PORTABLE CLINICAL HISTORY: reps failure dyspnea COMPARISON STUDY: 11/12/2016 FINDINGS: Endotracheal tube 3.5 cm above the yuliana. Central catheter in superior vena cava. Improved bilateral parenchymal infiltrative change. Diaphragms smooth. Nasogastric tube within the gastric fundus. IMPRESSION: Improving bilateral parenchymal infiltrative change. Endotracheal tube 3.5 cm above the yuliana. Electronically signed by: Vincenzo Olvera M.D. 11/13/2016 7:03 AM Dictated Date/Time: 11/13/2016 6:54 AM
[2016-11-13] MEDS ORDERED: VANCOMYCIN TROUGH SCH (07:30)
[2016-11-13 07:32] LABS: BASO % 0.1 %; BASO ABS # 0.01 K/uL (0-0.2); COMPLETE YES; EOS % 0.9 %; HEMATOCRIT 29.1 % (42-52); IG% 0.9 %; LYMPH % 1.5 %; LYMPH ABS # 0.27 K/uL (1.2-3.4); MEAN CELL VOLUME 84.8 fL (80-100); MEAN CORPUSCULAR HEMOGLOBIN 28.3 pg (25-34); MEAN CORPUSCULAR HGB CONC 33.3 g/dl (32-36); MEAN PLATELET VOLUME 8.2 fL (7.4-10.4); MONO % 1.2 %; NEUT % 95.4 %; PLATELET COUNT 331 K/uL (130-400); RED BLOOD COUNT 3.43 M/uL (4.7-6.1)
[2016-11-13] MEDS: ALBUTEROL HFA 8 GM INHALER INH SCH ×4 (07:38→20:00)
[2016-11-13] MEDS: IPRATROPIUM BROMIDE HFA INHALER INH SCH ×4 (07:38→20:00)
[2016-11-13 07:52] LABS: BUN/CREATININE RATIO 34.7 (10-20); CALCIUM 8.1 mg/dl (8.5-10.1); CREATININE 0.65 mg/dl (0.60-1.40); MAGNESIUM 2.1 mg/dl (1.8-2.4); POTASSIUM 3.6 mmol/L (3.5-5.1)
[2016-11-13] MEDS: FENTANYL 1250MCG/250ML NSS 250 ML IV PRN ×2 (07:55→21:39)
[2016-11-13 08:03] LABS: PHOSPHORUS 2.4 mg/dl (2.5-4.9)
[2016-11-13] MEDS: MULTIVITAMINS W/MINERALS 15ML UDP PO SCH (08:03)
[2016-11-13] MEDS: CHLORHEXIDINE GLUCONATE 0.12% 480 ML MT SCH ×2 (08:04→21:59)
[2016-11-13] MEDS: SULFAMETHOXAZOLE/TRIMETHOPRIM DS 800/160MG TAB PO SCH ×2 (08:04→21:40)
[2016-11-13 08:42] LABS: ESTIMATED AVERAGE GLUCOSE 126 mg/dl; HA1C FLAG Normal (Normal)
[2016-11-13] MEDS ORDERED: FUROSEMIDE INJ 40 MG in SYRINGE 0 ML IV ONE (08:45)
[2016-11-13] MEDS ORDERED: POTASSIUM PHOSPHATE INJ 15 MMOL in SODIUM CHLORIDE 0.9% 250ML 250 ML IV SCH (09:00)
[2016-11-13 09:22] LABS: ISTAT ARTERIAL BLOOD GAS HCO3 24 meq/L (19-24); ISTAT ARTERIAL BLOOD GAS PCO2 38 mmHg (35-46); ISTAT ARTERIAL BLOOD GAS PO2 79 mmHg (80-95); ISTAT ARTERIAL BLOOD GAS pH 7.41 (7.35-7.45); ISTAT CARBON DIOXIDE 25 mEq/l (24-31); ISTAT DELIVERY SYSTEM Ventilator; ISTAT FIO2 80 %; ISTAT PEEP 13; ISTAT RATE 20; ISTAT SITE Art Line; VE 11.3; Vt 450
[2016-11-13] MEDS ORDERED: DOCUSATE SODIUM 100 MG/10 ML UDC PO STA (09:51)
[2016-11-13] MEDS ORDERED: HALOPERIDOL LACTATE 5 MG/ML 1 ML VIAL IV ONE (10:00)
--- NOTE | 2016-11-13 10:21 | Pharmacy Progress Note ---
Pharmacy Antibiotic Prog Note Date of Service: Nov 13, 2016. Subjective: The patient is currently receiving Vancomycin 800 mg IV every 8 hours. The patient is currently on day # 3 of IV therapy. Objective: Height (Feet): 5 Height (Inches): 7.00 Weight (Kilograms): 51.000 Levels: Item Value Date Time Vancomycin Level Trough 19.5 mcg/ml 11/13/16 0726 Lab Results (24hrs): Laboratory Tests Test 11/12/16 11:15 11/13/16 07:26 BUN/Creatinine Ratio 37.4 34.7 Blood Urea Nitrogen 22 mg/dl 23 mg/dl Creatinine 0.58 mg/dl 0.65 mg/dl White Blood Count 18.00 K/uL Red Blood Count 3.43 M/uL Hemoglobin 9.7 g/dL Hematocrit 29.1 % Mean Corpuscular Volume 84.8 fL Mean Corpuscular Hemoglobin 28.3 pg Mean Corpuscular Hemoglobin Concent 33.3 g/dl Platelet Count 331 K/uL Mean Platelet Volume 8.2 fL Neutrophils (%) (Auto) 95.4 % Lymphocytes (%) (Auto) 1.5 % Monocytes (%) (Auto) 1.2 % Eosinophils (%) (Auto) 0.9 % Basophils (%) (Auto) 0.1 % Neutrophils # (Auto) 17.17 K/uL Lymphocytes # (Auto) 0.27 K/uL Monocytes # (Auto) 0.22 K/uL Eosinophils # (Auto) 0.17 K/uL Basophils # (Auto) 0.01 K/uL Micro Results: Item Value Date Time Acid Fast Stain Bill Batch 11/12/16 1557 Sputum Expectorated Sputum Pending Gram Stain - Final Resulted 11/11/16 2305 Bronchial Washings Right Middle Lobe Fungal Smear - Final Resulted 11/11/16 2305 Bronchial Washings Right Middle Lobe Fungal Smear - Final Resulted 11/11/16 2305 Bronchial Washings Left Lobe MRSA DNA Surveillance Screen - Final Complete 11/11/16 1536 Nasal Specimen Negative for MRSA by DNA Probe Gram Stain - Final Resulted 11/11/16 1536 Sputum Expectorated Sputum GRAM STAIN Final 11/12/16-0848 RESULT FEW EPITHELIAL CELLS MANY POLYS RARE GRAM NEGATIVE BACILLI RARE GRAM NEGATIVE COCCI SPUTUM CULTURE Preliminary 11/12/16-1244 MODERATE NORMAL ADY Present, Final Report to Follow. Recent Pertinent Medications: Item Value Date Time Vancomycin HCl 266 ml @ 125 mls/hr 11/12/16 1600 800 mg/Sodium Q8H/IV 11/13/16 0759 Chloride Piperacillin Sod/ 115 ml @ 28.75 mls/hr 11/11/16 2200 Tazobactam Sod Q8H/IV 11/13/16 0606 3.375 gm/Dextrose Levofloxacin 750 150 ml @ 100 mls/hr 11/11/16 1700 mg/Prmx DAILY@1700/IV 11/12/16 1700 Trimethoprim/ 1 tab 11/12/16 0900 Sulfamethoxazole Q12/PO 11/13/16 0804 (Septra Ds 800/ 160MG Tab) Assessment & Plan: ASSESSMENT * 76 yo M transferred from [facility] after being admitted with worsening SOB and fever * While at [facility] he received IV Vancomycin and Cefepime- continued to worsen - and transferred to [facility] * He is currently on broad spectrum antibiotics: Vancomycin, Zosyn, Levaquin IV + Bactrim PO * MRSA swab negative, bronch washings pending, sputum pending * Will be difficult to deescalate patient given recent antibiotic exposure [employer]ROL [employer]ER[employer] - ID consulted for management PLAN Vancomycin * This drug level: Therapeutic. * Continue 800 mg IV every 8 hours. * Goal trough level estimate: between 15 - 20 mcg/mL. (lung source) * Given this aggressive regimen and critical status, re-check a trough tomorrow morning @0730 prior to the 0800 dose. * At that time we may need to go back to q10 hour dosing. Zosyn * Continue 3.375 g IV every 8 hours * No renal adjustment for CrCl >20 mL/min. Levaquin * Continue 750 mg IV every 24 hours * No renal adjustment for CrCl >50 mL/min Bactrim * 1 DS tab PO BID * Continue for now due to immunosuppression and clinical status per provider Pharmacy will continue to follow and will adjust dose/frequency as necessary. Thank you
--- NOTE | 2016-11-13 10:33 | CRITICAL CARE PROGRESS NOTE ---
DATE: 11/13/2016 SUBJECTIVE: The patient's care was discussed in detail on multidisciplinary rounds today. He is not having any endotracheal tube secretions and his fentanyl is now up to 100 mcg per hour. The propofol is also at 15 mcg per kilogram per minute. He is tolerating his trickle feeds without significant residuals. He remains on Levophed 0.02 mcg per kilogram per minute. He becomes agitated at times and has received some p.r.n. fentanyl. He has not had a bowel movement. His oxygen saturation dropped this morning, requiring increasing his FiO2 to 80%. PHYSICAL EXAMINATION: VITAL SIGNS: Maximum temperature 37, heart rate 86-113, respiratory rate 20-26, blood pressure 97-110/30s-40s, and oxygen saturation of 93%. Ventilator settings: Assist control rate 20, tidal volume 450, FiO2 of 80%, and PEEP 13. 24-hour fluid balance negative 820 mL. Plateau pressure 28. GENERAL: He is unresponsive to painful stimuli. HEENT: It is difficult to assess his pupils secondary to his cataract. Endotracheal tube and orogastric tube are in place. LUNGS: Have some bibasilar rales with decreased breath sounds on the right compared to left. HEART: Tachycardic, regular, no murmurs. ABDOMEN: Soft and nondistended with hypoactive bowel sounds. EXTREMITIES: Thin and warm with the exception of the right foot, which is a little bit colder compared to the left. There is no edema. SCDs are in place on the bilateral lower extremities. He has wrist restraints in place. LABORATORY DATA: ABG, pH 7.41, pCO2 of 38, pO2 of 79 and HCO3 of 24. White blood cell count 18, hemoglobin 9.7, hematocrit 29.1, and platelets 331. Sodium 141, potassium 3.6, chloride 106, CO2 of 25, BUN 23, and creatinine 0.65. Blood sugar 169, calcium 8.1, phosphorus 2.4, and magnesium 2.1. Hemoglobin A1c 6. Microbiology data has been reviewed. Gram stains on all bronchial washings show no organisms and moderate white blood cells. Fungal smears are negative and fungal cultures are pending. Expectorated sputum culture shows moderate normal gayatri. Portable chest x-ray from this morning was reviewed and shows improving bilateral parenchymal infiltrates. MEDICATIONS AND INFUSIONS: Acetaminophen, albuterol, chlorhexidine, Lovenox, Peptamen, tube feeds, fentanyl infusion, fentanyl p.r.n., hydrocortisone, insulin sliding scale, Atrovent, Levaquin day #3, multivitamin, norepinephrine, Zofran, Protonix, Zosyn day #3, propofol, sterile water, Bactrim day #2, and vancomycin day #3. EKG pending. IMPRESSION: 1. Acute hypoxemic respiratory failure with acute respiratory distress syndrome. Chest x-ray is improving, but etiology of his respiratory decompensation is still unclear to me. Bronchial washings and sputum culture have been unrevealing thus far. 2. Non-ST segment elevation myocardial infarction. Ejection fraction 40%. No regional wall motion abnormalities on echocardiogram. I suspect this may be secondary to demand ischemia. He remains tachycardic, but is also on Levophed. Beta sammy is not indicated. I cannot start a beta sammy for that reason. 3. Nonsmall cell lung carcinoma, stage T3 N3 M0. 4. Hypotension, I think again this is now more related to a sedative effect of his medicines more than septic shock. 5. Malnutrition. 6. Acute anemia, stable. No signs of active bleeding. 7. Hypophosphatemia and hypokalemia. PLAN: NEUROLOGIC: If his corrected QT interval is satisfactory, I will begin some scheduled Haldol. I would like to attempt a sedation vacation later today. Continue fentanyl infusion as well as p.r.n. fentanyl and propofol. PULMONARY: Continue bronchodilators, antibiotics and ventilatory support. I would like to obtain a CT scan of the chest, but with his increasing O2 requirement this morning, I will hold on that and reassess later today. Plateau pressures are acceptable at this point. I have ordered another 40 mg of Lasix today. INFECTIOUS DISEASE: Continue broad spectrum antibiotics as per the infectious disease recommendations. Urine legionella antigen is still pending along with his TB studies. CARDIOVASCULAR: Wean the Levophed and begin a baby aspirin daily. Eventually, I would like to put him on some low-dose beta blockade as well. Follow the corrected QT interval on Haldol. GASTROINTESTINAL: Increase tube feeds as tolerated to goal rate of 60 mL per hour. Add Colace for constipation. RENAL: Replete electrolytes and Lasix 40 mg today. HEMATOLOGY: White blood cell count is still elevated. He has been on steroids, which may partially account for this. Lovenox for DVT prophylaxis. ENDOCRINE: Blood sugars are under adequate control. Decrease Solu-Cortef to 25 mg IV q. 8 hours. I discussed the patient's care in great detail with the daughter, who was at the bedside. Questions were answered and support was provided. Critical care time 60 minutes.
--- NOTE | 2016-11-13 10:45 | Progress Note ---
Subjective Date of Service: Nov 13, 2016. Subjective pt remains sedated on vent, afebrile overnight. remains on pressors. bronch cultures pending. sputum with nml gayatri, afb smear negative. Quantiferon pending. tolerating abx, remains on multiple broad spectrum abx. vanco level today 19.5, wbc remains elevated at 18. remains on iv steroids. Problem List Medical Problems: (1) Anemia Status: Acute (2) Chronic subdural hematoma Status: Acute (3) Lung cancer Status: Acute Objective Vital Signs Date Time Temp Pulse Resp B/P Pulse Ox O2 Delivery O2 Flow Rate FiO2 11/13/16 09:27 37.0 115 24 79/58 95 Mechanical Ventilator 80 90/59 11/13/16 08:45 80 11/13/16 07:32 60 11/13/16 07:30 60 11/13/16 07:30 90 Mechanical Ventilator 60 11/13/16 07:30 37.0 86 24 95/49 90 Mechanical Ventilator 60 94/62 11/13/16 06:00 86 17 105/48 93 Mechanical Ventilator 60 11/13/16 05:24 60 11/13/16 04:00 99 Mechanical Ventilator 60 11/13/16 04:00 36.8 91 19 100/44 92 Mechanical Ventilator 60 11/13/16 04:00 60 11/13/16 03:39 60 11/13/16 02:00 95 18 97/43 91 Mechanical Ventilator 60 11/13/16 00:00 37.0 107 20 108/43 91 Mechanical Ventilator 60 11/12/16 23:59 99 Mechanical Ventilator 60 11/12/16 23:59 60 11/12/16 23:00 60 11/12/16 22:00 102 20 110/46 90 Mechanical Ventilator 60 11/12/16 20:00 37.0 110 20 103/43 92 Mechanical Ventilator 60 11/12/16 20:00 60 11/12/16 20:00 92 Mechanical Ventilator 60 11/12/16 20:00 60 11/12/16 18:00 110 22 106/40 92 11/12/16 17:30 110 21 111/37 90 11/12/16 17:00 112 24 108/43 92 11/12/16 16:30 110 20 97/39 90 11/12/16 16:06 80 11/12/16 16:00 111 24 95/41 90 11/12/16 15:30 60 11/12/16 15:30 Mechanical Ventilator 60 11/12/16 15:30 121 26 107/48 89 11/12/16 15:30 36.8 121 30 92/68 99 Mechanical Ventilator 50 96/43 11/12/16 15:00 110 24 98/46 92 11/12/16 14:30 111 31 99/46 93 11/12/16 14:00 114 23 97/45 94 11/12/16 13:30 36.8 110 20 77/54 99 Mechanical Ventilator 50 94/45 11/12/16 13:30 110 21 92/42 93 11/12/16 13:00 113 23 89/41 93 11/12/16 12:30 116 23 90/43 91 11/12/16 12:00 115 22 105/46 94 11/12/16 11:37 80 11/12/16 11:30 Mechanical Ventilator 60 11/12/16 11:30 36.8 110 20 75/56 99 Mechanical Ventilator 50 94/42 11/12/16 11:30 112 20 101/42 93 11/12/16 11:25 112 21 98/42 93 11/12/16 11:12 109 20 101/48 93 11/12/16 11:00 108 20 77/36 93 Laboratory Results Item Value Date Time Gram Stain - Final Resulted 11/11/16 1536 Sputum Expectorated Sputum Acid Fast Stain - Final Resulted 11/11/16 1540 Sputum Expectorated Sputum Last 24 Hours Test 11/12/16 11:10 11/12/16 11:15 11/12/16 13:16 11/12/16 16:05 Bedside Glucose 95 mg/dl 123 mg/dl Hemoglobin 9.7 g/dL Hematocrit 29.4 % Sodium Level 141 mmol/L Potassium Level 3.7 mmol/L Chloride Level 107 mmol/L Carbon Dioxide Level 24 mmol/L Anion Gap 10.0 mmol/L Blood Urea Nitrogen 22 mg/dl Creatinine 0.58 mg/dl Est Creatinine Clear Calc Drug Dose 82.0 ml/min Estimated GFR () 116.4 Estimated GFR (Non- 100.4 BUN/Creatinine Ratio 37.4 Random Glucose 103 mg/dl Calcium Level 7.9 mg/dl Troponin I 2.320 ng/ml Blood Gas Sample Site Art Line Bedside Blood Gas pH (LAB) 7.39 Bedside Blood Gas pCO2 (LAB) 43 mmHg Bedside Blood Gas pO2 (LAB) 63 mmHg Bedside Blood Gas HCO3 (LAB) 26 meq/L Bedside Blood Gas Total CO2 27 mEq/l Bedside Blood Gas Base Excess (LAB) 1.0 meq/L Bedside Blood Gas O2 Saturation 91.0 % James Test NA Oxygen Delivery Device Ventilator Bedside Oxygen Rate (breaths/min) 20 Blood Gas Minute Ventilation 10.2 Bedside FiO2 60 % Blood Gas Tidal Volume 450 Blood Gas PEEP 13 Test 11/12/16 17:30 11/12/16 22:20 11/13/16 07:26 11/13/16 09:11 Hemoglobin 9.6 g/dL 9.7 g/dL Hematocrit 29.1 % 29.1 % Troponin I 1.830 ng/ml Bedside Glucose 135 mg/dl White Blood Count 18.00 K/uL Red Blood Count 3.43 M/uL Mean Corpuscular Volume 84.8 fL Mean Corpuscular Hemoglobin 28.3 pg Mean Corpuscular Hemoglobin Concent 33.3 g/dl Platelet Count 331 K/uL Mean Platelet Volume 8.2 fL Neutrophils (%) (Auto) 95.4 % Lymphocytes (%) (Auto) 1.5 % Monocytes (%) (Auto) 1.2 % Eosinophils (%) (Auto) 0.9 % Basophils (%) (Auto) 0.1 % Neutrophils # (Auto) 17.17 K/uL Lymphocytes # (Auto) 0.27 K/uL Monocytes # (Auto) 0.22 K/uL Eosinophils # (Auto) 0.17 K/uL Basophils # (Auto) 0.01 K/uL RDW Standard Deviation 55.7 fL RDW Coefficient of Variation 17.7 % Immature Granulocyte % (Auto) 0.9 % Immature Granulocyte # (Auto) 0.16 K/uL Sodium Level 141 mmol/L Potassium Level 3.6 mmol/L Chloride Level 106 mmol/L Carbon Dioxide Level 25 mmol/L Anion Gap 10.0 mmol/L Blood Urea Nitrogen 23 mg/dl Creatinine 0.65 mg/dl Est Creatinine Clear Calc Drug Dose 71.9 ml/min Estimated GFR () 111.1 Estimated GFR (Non- 95.8 BUN/Creatinine Ratio 34.7 Random Glucose 169 mg/dl Estimated Average Glucose 126 mg/dl Hemoglobin A1c 6.0 % Calcium Level 8.1 mg/dl Phosphorus Level 2.4 mg/dl Magnesium Level 2.1 mg/dl Vancomycin Level Trough 19.5 mcg/ml Blood Gas Sample Site Art Line Bedside Blood Gas pH (LAB) 7.41 Bedside Blood Gas pCO2 (LAB) 38 mmHg Bedside Blood Gas pO2 (LAB) 79 mmHg Bedside Blood Gas HCO3 (LAB) 24 meq/L Bedside Blood Gas Total CO2 25 mEq/l Bedside Blood Gas Base Excess (LAB) -1.0 meq/L Bedside Blood Gas O2 Saturation 96.0 % James Test NA Oxygen Delivery Device Ventilator Bedside Oxygen Rate (breaths/min) 20 Blood Gas Minute Ventilation 11.3 Bedside FiO2 80 % Blood Gas Tidal Volume 450 Blood Gas PEEP 13 Assessment and Plan (1) Bilateral pneumonia Assessment & Plan: continue broad spectrum abx for now, continue supportive care. follow cultures, negative to date. (2) Severe sepsis with acute organ dysfunction (3) Lung cancer
[2016-11-13] MEDS ORDERED: POTASSIUM CHLR 20MEQ / WTR IV SCH (11:00)
[2016-11-13] MEDS: PANTOprazole INJ 40 MG in SYRINGE 0 ML IV SCH (11:13)
[2016-11-13 12:52] LABS: LEGIONELLA ANTIGEN NOT DETECTED
--- NOTE | 2016-11-13 13:52 | Progress Note ---
Subjective Date of Service: Nov 13, 2016. Subjective Pt evaluation today including: conversation w/ family, physical exam, lab review, review of studies, conversation w/ in home sales consultant, review of inpatient medication list Pain: appears comfortable PO Intake: OG tube feedings Voiding: arzate catheter in place no major issues overnight' d/w clothespin machine operator this AM updated daughter this morning and son-in-law this afternoon Problem List Medical Problems: (1) Anemia Status: Acute (2) Chronic subdural hematoma Status: Acute (3) Lung cancer Status: Acute Review of Systems cannot review, sedated, intubated Medications Current Inpatient Medications Medications (Trade) Dose Ordered Sig/Cindy Route Start Time Stop Time Status Last Admin Dose Admin Enoxaparin Sodium (Lovenox Inj) 40 mg Q24H SC 11/11/16 21:00 12/11/16 20:59 11/12/16 22:25 40 MG Acetaminophen (Tylenol Tab) 650 mg Q4H PRN PO 11/11/16 14:00 12/11/16 13:59 Ondansetron HCl (Zofran Inj) 4 mg Q6H PRN IV 11/11/16 14:00 12/11/16 13:59 11/12/16 10:56 4 MG Piperacillin Sod/ Tazobactam Sod (Consult) 1 ea UD PRN N/A 11/11/16 14:30 12/11/16 14:29 Vancomycin HCl 1 ea 1 ea UD PRN N/A 11/11/16 14:30 12/11/16 14:29 Piperacillin Sod/ Tazobactam Sod 3.375 gm/Dextrose 115 ml @ 28.75 mls/ hr Q8H IV 11/11/16 22:00 11/18/16 21:59 11/13/16 06:06 28.75 MLS/HR Levofloxacin/Prmx (Levaquin / D5W/ Premixed D5W) 150 ml @ 100 mls/hr DAILY@1700 IV 11/11/16 17:00 11/18/16 16:59 11/12/16 17:00 100 MLS/HR Insulin Aspart (novoLOG ASPART) SLIDING SCALE G... ACHS SC 11/11/16 16:15 12/11/16 16:14 11/11/16 18:26 5 UNITS Glucose (Glucose 40% Gel) 15-30 GRAMS 15 GRAMS... UD PRN PO 11/11/16 16:15 12/11/16 16:14 Glucose (Glucose Chew Tab) 4-8 Tablets 4 Tabl... UD PRN PO 11/11/16 16:15 12/11/16 16:14 Dextrose (Dextrose 50% 50ML Syringe) 25-50ML OF 50% DW IV FOR... UD PRN IV 11/11/16 16:15 12/11/16 16:14 Glucagon (Glucagon Inj) 1 mg UD PRN SQ 11/11/16 16:15 12/11/16 16:14 Miscellaneous Information 1 ea 1 ea UD N/A 11/11/16 19:09 12/11/16 19:08 Fentanyl Citrate (Fentanyl Drip 1250MCG/250 Nss) 250 ml @ 0 mls/hr Q0M PRN IV 11/11/16 22:45 11/25/16 22:44 11/13/16 07:55 20 MLS/HR Propofol 1 dose 1 dose UD PRN IV 11/11/16 22:45 11/14/16 22:44 11/13/16 10:11 1 DOSE Norepinephrine Bitartrate/ Dextrose (Levophed Inj/ D5W 500ml) 508 ml @ 0 mls/hr Q0M PRN IV 11/11/16 22:33 12/11/16 22:32 11/13/16 03:37 38.3 MLS/HR Chlorhexidine Gluconate (Peridex Oral Soln) 15 ml BID MT 11/12/16 09:00 12/12/16 08:59 11/13/16 08:04 15 ML Trimethoprim/ Sulfamethoxazole (Septra Ds 800/ 160MG Tab) 1 tab Q12 PO 11/12/16 09:00 11/19/16 08:59 11/13/16 08:04 1 TAB Ipratropium [place] (Atrovent Hfa Inhaler) 4 puffs QIDR INH 11/12/16 08:00 12/12/16 07:59 11/13/16 11:38 4 PUFFS Albuterol 4 puffs 4 puffs QIDR INH 11/12/16 08:00 12/12/16 07:59 11/13/16 11:39 4 PUFFS Pantoprazole Sodium/Syringe (Protonix Inj/ Syringe) 10 ml @ 5 mls/min DAILY@11 IV 11/12/16 11:00 12/12/16 10:59 11/13/16 11:13 5 MLS/MIN Fentanyl Citrate (Fentanyl Inj) 50 mcg Q3H PRN IV 11/12/16 10:00 11/26/16 09:59 11/13/16 04:18 50 MCG Enteral Nutritional Formula (Peptamen Intense VHP) 1,000 ml UD OG 11/12/16 09:45 12/12/16 09:44 11/12/16 11:06 1,000 ML Multivitamins Therapeutic (Cerovite Liquid) 15 ml QAM PO 11/13/16 10:00 12/13/16 09:59 11/13/16 08:03 15 ML Sterile Water 1 ea 1 ea Q6 NG 11/12/16 12:00 12/12/16 11:59 11/13/16 11:13 1 EA Vancomycin HCl 800 mg/Sodium Chloride 266 ml @ 125 mls/hr Q8H IV 11/12/16 16:00 11/19/16 15:59 11/13/16 07:59 125 MLS/HR Hydrocortisone Sodium Succinate/ Syringe (Solu-Cortef IV/ Syringe) 0.5 ml @ 4 mls/min Q8H IV 11/13/16 16:00 12/13/16 15:59 Haloperidol Lactate (Haldol Inj) 2.5 mg Q6H IV 11/13/16 16:00 12/13/16 15:59 Docusate Sodium (coLACE SYRUP) 100 mg BID PO 11/13/16 21:00 12/13/16 20:59 Aspirin (Aspirin Chew) 81 mg DAILY NG 11/14/16 09:00 12/14/16 08:59 Objective Vital Signs Date Time Temp Pulse Resp B/P Pulse Ox O2 Delivery O2 Flow Rate FiO2 11/13/16 13:30 36.6 122 24 112/66 90 Mechanical Ventilator 80 11/13/16 11:45 109 29 87/59 93 11/13/16 11:39 60 11/13/16 11:30 Mechanical Ventilator 80 11/13/16 11:30 115 15 79/56 93 11/13/16 11:30 80 11/13/16 11:30 36.6 119 24 81/48 92 Mechanical Ventilator 80 11/13/16 11:15 119 19 76/58 93 11/13/16 11:00 116 18 85/54 93 11/13/16 10:47 119 18 81/48 11/13/16 10:46 122 17 89/49 93 11/13/16 10:45 119 16 77/60 93 11/13/16 10:30 116 20 101/50 92 11/13/16 10:15 116 17 84/61 95 11/13/16 10:05 116 17 84/60 94 11/13/16 10:00 116 19 88/57 94 11/13/16 09:45 113 20 80/56 94 11/13/16 09:30 118 18 78/54 94 11/13/16 09:27 37.0 115 24 79/58 95 Mechanical Ventilator 80 90/59 11/13/16 09:15 117 19 93/49 96 11/13/16 09:00 119 17 89/49 97 11/13/16 08:45 80 11/13/16 08:45 116 19 88/45 98 11/13/16 08:30 122 27 87/43 90 11/13/16 08:15 123 19 95/48 89 11/13/16 08:00 Mechanical Ventilator 80 11/13/16 08:00 121 20 87/47 11/13/16 07:45 120 20 97/48 90 11/13/16 07:32 60 11/13/16 07:30 60 11/13/16 07:30 90 Mechanical Ventilator 60 11/13/16 07:30 118 19 110/51 92 11/13/16 07:30 37.0 86 24 95/49 90 Mechanical Ventilator 60 94/62 11/13/16 07:15 107 15 96/49 97 11/13/16 07:00 106 15 97/49 90 11/13/16 06:00 86 17 105/48 93 Mechanical Ventilator 60 11/13/16 05:24 60 11/13/16 04:00 99 Mechanical Ventilator 60 11/13/16 04:00 36.8 91 19 100/44 92 Mechanical Ventilator 60 11/13/16 04:00 60 11/13/16 03:39 60 11/13/16 02:00 95 18 97/43 91 Mechanical Ventilator 60 11/13/16 00:00 37.0 107 20 108/43 91 Mechanical Ventilator 60 11/12/16 23:59 99 Mechanical Ventilator 60 11/12/16 23:59 60 11/12/16 23:00 60 11/12/16 22:00 102 20 110/46 90 Mechanical Ventilator 60 11/12/16 20:00 37.0 110 20 103/43 92 Mechanical Ventilator 60 11/12/16 20:00 60 11/12/16 20:00 92 Mechanical Ventilator 60 11/12/16 20:00 60 11/12/16 18:00 110 22 106/40 92 11/12/16 17:30 110 21 111/37 90 11/12/16 17:00 112 24 108/43 92 11/12/16 16:30 110 20 97/39 90 11/12/16 16:06 80 11/12/16 16:00 111 24 95/41 90 11/12/16 15:30 60 11/12/16 15:30 Mechanical Ventilator 60 11/12/16 15:30 121 26 107/48 89 11/12/16 15:30 36.8 121 30 92/68 99 Mechanical Ventilator 50 96/43 11/12/16 15:00 110 24 98/46 92 11/12/16 14:30 111 31 99/46 93 11/12/16 14:00 114 23 97/45 94 Physical Exam General Appearance: + mild distress, + thin ENT: + pertinent finding (OG tube, intubated) Neck: supple, no adenopathy, no JVD, trachea midline Respiratory/Chest: chest non-tender, + decreased breath sounds, + rales Cardiovascular: no edema, no gallop, no JVD, no murmur, + tachycardia Abdomen: normal bowel sounds, non tender, soft, no organomegaly Extremities: normal range of motion (pulling at restraints), non-tender, normal inspection, no pedal edema, no calf tenderness Neurologic/Psychiatric: + pertinent finding (sedate, no focal neurologic deficits) Skin: normal color, warm/dry, no rash Laboratory Results Last 24 Hours Test 11/12/16 16:05 11/12/16 17:30 11/12/16 22:20 11/13/16 07:26 Bedside Glucose 123 mg/dl 135 mg/dl Hemoglobin 9.6 g/dL 9.7 g/dL Hematocrit 29.1 % 29.1 % Troponin I 1.830 ng/ml White Blood Count 18.00 K/uL Red Blood Count 3.43 M/uL Mean Corpuscular Volume 84.8 fL Mean Corpuscular Hemoglobin 28.3 pg Mean Corpuscular Hemoglobin Concent 33.3 g/dl Platelet Count 331 K/uL Mean Platelet Volume 8.2 fL Neutrophils (%) (Auto) 95.4 % Lymphocytes (%) (Auto) 1.5 % Monocytes (%) (Auto) 1.2 % Eosinophils (%) (Auto) 0.9 % Basophils (%) (Auto) 0.1 % Neutrophils # (Auto) 17.17 K/uL Lymphocytes # (Auto) 0.27 K/uL Monocytes # (Auto) 0.22 K/uL Eosinophils # (Auto) 0.17 K/uL Basophils # (Auto) 0.01 K/uL RDW Standard Deviation 55.7 fL RDW Coefficient of Variation 17.7 % Immature Granulocyte % (Auto) 0.9 % Immature Granulocyte # (Auto) 0.16 K/uL Sodium Level 141 mmol/L Potassium Level 3.6 mmol/L Chloride Level 106 mmol/L Carbon Dioxide Level 25 mmol/L Anion Gap 10.0 mmol/L Blood Urea Nitrogen 23 mg/dl Creatinine 0.65 mg/dl Est Creatinine Clear Calc Drug Dose 71.9 ml/min Estimated GFR () 111.1 Estimated GFR (Non- 95.8 BUN/Creatinine Ratio 34.7 Random Glucose 169 mg/dl Estimated Average Glucose 126 mg/dl Hemoglobin A1c 6.0 % Calcium Level 8.1 mg/dl Phosphorus Level 2.4 mg/dl Magnesium Level 2.1 mg/dl Vancomycin Level Trough 19.5 mcg/ml Test 11/13/16 09:11 11/13/16 11:07 Blood Gas Sample Site Art Line Bedside Blood Gas pH (LAB) 7.41 Bedside Blood Gas pCO2 (LAB) 38 mmHg Bedside Blood Gas pO2 (LAB) 79 mmHg Bedside Blood Gas HCO3 (LAB) 24 meq/L Bedside Blood Gas Total CO2 25 mEq/l Bedside Blood Gas Base Excess (LAB) -1.0 meq/L Bedside Blood Gas O2 Saturation 96.0 % James Test NA Oxygen Delivery Device Ventilator Bedside Oxygen Rate (breaths/min) 20 Blood Gas Minute Ventilation 11.3 Bedside FiO2 80 % Blood Gas Tidal Volume 450 Blood Gas PEEP 13 Bedside Glucose 181 mg/dl Assessment and Plan 76 yo male with stage IIIb right sided adenocarcinoma s/p chemo and radiation who presents with bilateral pneumonia and acute respiratory failure. Shortly after admission his respiratory status declined and he was transferred to ICU and later intubated due to severe hypoxia despite high FiO2. - Acute hypoxic respiratory failure, ARDS: mechanical ventilation, intubated on 11/11 at night management per ICU sedation with Propofol and PRN fentanyl, starting scheduled Haldol to try to wean back Propofol continue Lasix PRN for diuresis and keeping lungs dry - Bilateral pneumonia, HCAP since he failed outpatient antibiotics and is cancer patient Vancomycin, Zosyn and Levaquin day 3, will continue these, appreciate ID consult legionella antigen not detected, bronchial lavage cultures sent (no growth), Quantiferon gold sent and still pending no mucous plugging or increased secretions seen with bronchoscopy? - hypotension due to sedation, not considered septic shock at this point: continue Levophed for MAP > 65, central line placed reduced Hydrocortisone dose to 25mg q8 try to wean off of Propofol - Demand ischemia vs NSTEMI: troponin mike to 3.2, trending down, no EKG changes , never had chest pain echo with reduced EF of 40%, global hypokinesis, no significant valve disease start Aspirin 81mg, will try to start beta sammy once off of Levophed - Anemia: dropped from admission but now stable, no overt signs of bleeding, continue to monitor - Stage IIIb lung adenocarcinoma: completed chemo and radiation will follow up with Dr. Tinoco for restaging once he recovers from pneumonia - DVT prophylaxis: Lovenox - GI prophylaxis: Protonix IV, tube feeds Updated family at the bedside Discussed DNR status if his heart would stop, they are discussing what the patient would want done, for now continue level 1
--- NOTE | 2016-11-13 14:17 | Pharmacy Progress Note ---
Glycemic Control: Progress Nt Date of Service Nov 13, 2016. Scope Glycemic Pharmacist consulted by Dr Cruz on 11/11/16 for glycemic control and to write orders per [facility] inpatient glycemic control protocol. Objective Accuchecks BSG (last 24hrs): Test 11/12/16 16:05 11/12/16 22:20 11/13/16 07:26 11/13/16 11:07 Bedside Glucose 123 mg/dl (70-99) 135 mg/dl (70-99) 181 mg/dl (70-99) Random Glucose 169 mg/dl (70-99) Laboratory Data (last 24hrs) Test 11/13/16 07:26 Anion Gap 10.0 mmol/L BUN/Creatinine Ratio 34.7 Blood Urea Nitrogen 23 mg/dl Creatinine 0.65 mg/dl Hemoglobin A1c 6.0 % Potassium Level 3.6 mmol/L Sodium Level 141 mmol/L White Blood Count 18.00 K/uL Red Blood Count 3.43 M/uL Hemoglobin 9.7 g/dL Hematocrit 29.1 % Mean Corpuscular Volume 84.8 fL Mean Corpuscular Hemoglobin 28.3 pg Mean Corpuscular Hemoglobin Concent 33.3 g/dl Platelet Count 331 K/uL Mean Platelet Volume 8.2 fL Neutrophils (%) (Auto) 95.4 % Lymphocytes (%) (Auto) 1.5 % Monocytes (%) (Auto) 1.2 % Eosinophils (%) (Auto) 0.9 % Basophils (%) (Auto) 0.1 % Neutrophils # (Auto) 17.17 K/uL Lymphocytes # (Auto) 0.27 K/uL Monocytes # (Auto) 0.22 K/uL Eosinophils # (Auto) 0.17 K/uL Basophils # (Auto) 0.01 K/uL HbA1c: Test 11/13/16 07:26 Hemoglobin A1c 6.0 % (4.5-5.6) H Recent Pertinent Medications Outpatient Anti-diabetic Regimen: * N/A The patient is currently receiving: * Basal insulin: Lantus 10 units X 1 @ 1700 11/11/16 * Correctional Insulin: Novolog Correction per scale ACHS Goal Range: Low 140 mg/dL - High 180 mg/dL Correction Factor: 40 mg/dL/unit * Prandial insulin: Per carb ratio of 1 unit per 0 grams CHO consumed Risk Factors for Insulin Resistance: * Steroids: Hydrocortisone 25 mg IV every 8 hours * Infection: Vancomycin, Zosyn, Levaquin IV + Bactrim PO * Pressors: Levophed * Diet: Peptamen Bariatric - trickle feeds * Mechanical Ventilation: YES Assessment & Plan ASSESSMENT: 11/12/16 * 76 yo M transferred from [facility], initiated on broad spectrum antibiotics and high dose IV steroids * BSGs spiked yesterday ~330 mg/dL around 1700 * Lantus 10 units given per pharmacy * Novolog initiated (correctional ONLY) * BSGs responded quickly, dropped to 90 mg/dL and stayed within goal range through the night * Pt is not a known diabetic as an outpatient and is experiencing stress/ steroid induced hyperglycemia * My plan will be to hold off on further Lantus dosing for now, and continue correctional Novolog only * Based on how BSGs respond to trickle feeds, I may add carb coverage tomorrow * Order A1c with labs tomorrow to assess if any underlying diabetes * ADA & AACE recommend a goal blood sugar range 140-180 mg/dl for the majority of critically ill & non-critically ill patients. However, more stringent targets may be selected in individual cases. 11/13/16 * Pt has received 0 units of insulin X 24 hours * Per ICU rounds, plan is to advance tube feeds as tolerated and reduce steroid dose * I would like to see patient use Novolog correctional insulin before adding a carb ratio * In case BSGs increase through the evening, add Lantus 5 units X 1 ONLY if BSG >180 mg/dL PLAN FOR INPATIENT GLYCEMIC CONTROL: * Give Lantus 5 units X 1 tonight if BSG >181 mg/dL * Correctional Insulin with NOVOLOG per scale ACHS or Q6hrs while NPO * Goal Range: Low 140 mg/dL - High 180 mg/dL * Correction Factor: 40 mg/dL/unit * Nutritional / Prandial insulin per carb ratio of 1 unit per 0 grams CHO consumed * A1c 6.0 % - added to D/C instructions * Please note that the plan above was derived based on current level of insulin resistance and hospital stress. These recommendations are appropriate for inpatient admission only. Plan of care upon discharge will need to be reassessed to avoid potential outpatient hypo/hyperglycemia. Thank you.
[2016-11-13] MEDS: HALOPERIDOL LACTATE 5 MG/ML 1 ML VIAL IV SCH ×2 (15:47→20:12)
[2016-11-13] MEDS: LEVOFLOXACIN 750MG / D5W IV SCH (15:47)
[2016-11-13] MEDS: HYDROCORTISONE IV 25 MG in SYRINGE 0 ML IV SCH ×2 (15:47→23:51)
[2016-11-13] MEDS ORDERED: FUROSEMIDE 40 MG/4 ML VIAL IV STA (18:18)
[2016-11-13] MEDS ORDERED: INSULIN GLARGINE SOLOSTAR 100 UNITS/ML 3 ML PEN SC SCH (21:00)
[2016-11-13 21:35] LABS: MAGNESIUM 1.8 mg/dl (1.8-2.4); PHOSPHORUS 3.4 mg/dl (2.5-4.9)
[2016-11-13 21:37] LABS: CALCIUM 8.1 mg/dl (8.5-10.1); CREATININE 0.9 mg/dl (0.60-1.40); POTASSIUM 2.7 mmol/L (3.5-5.1)
[2016-11-13] MEDS ORDERED: POTASSIUM CHLORIDE 20 MEQ/15 ML UDC PO STA (21:37)
[2016-11-13] MEDS: ENOXAPARIN 40 MG/0.4 ML SYR SC SCH (21:39)
[2016-11-13] MEDS: DOCUSATE SODIUM 100 MG/10 ML UDC PO SCH (21:39)
[2016-11-13] MEDS: POTASSIUM CHLR 20 MEQ / WTR 20 MEQ in PREMIXED WATER 100 ML IV SCH ×2 (21:58→23:20)
[2016-11-13] MEDS: MAGNESIUM SULFATE 1GM / D5W 1 GM in PREMIXED IN D5W 100 ML IV SCH ×2 (21:58→22:50)
[2016-11-13] MEDS ORDERED: ADENOSINE IV SOLN 3 MG/ML 2 ML VIAL ONE (22:12)
[2016-11-13] MEDS ORDERED: DILTIAZEM BOLUS / DRIP IV STA (22:17)
[2016-11-13] MEDS: DILTIAZEM HCL INJ 125 MG in DEXTROSE 5% 100ML IV PRN (22:29)
[2016-11-13] MEDS ORDERED: DILTIAZEM HCL 5 MG/ML 5 ML VIAL IV ONE (22:30)
[2016-11-13] MEDS ORDERED: DILTIAZEM HCL 5 MG/ML 5 ML VIAL IV STA ×2 (22:30→22:45)
[2016-11-13] MEDS: ALBUMIN HUMAN 25% 12.5 GM/50 ML VIAL IV SCH ×2 (22:53→23:45)
[2016-11-13] MEDS ORDERED: NURSING VERBAL MED ORDER ONE (23:00)
[2016-11-13 23:03] LABS: ISTAT ARTERIAL BLOOD GAS HCO3 26 meq/L (19-24); ISTAT ARTERIAL BLOOD GAS PCO2 37 mmHg (35-46); ISTAT ARTERIAL BLOOD GAS PO2 58 mmHg (80-95); ISTAT ARTERIAL BLOOD GAS pH 7.45 (7.35-7.45); ISTAT CARBON DIOXIDE 27 mEq/l (24-31); ISTAT DELIVERY SYSTEM Ventilator; ISTAT FIO2 90 %; ISTAT PEEP 13; ISTAT RATE 25; ISTAT SITE Art Line; VE 16.9; Vt 450
[2016-11-14] VITALS (70 sets, daily range): BP systolic 75–133; BP diastolic 32–77; PULSE 79–114; TEMP 35.6–37.2; O2SAT 81–99
--- NOTE | 2016-11-14 00:32 | Progress Note ---
Progress Note Date of Service Nov 14, 2016. Progress Note Magnetizer: I placed and L femoral arterial line earlier in the evening without difficulty. Dictation to follow. Patient has required increasing sedation throughout the day. He went into rapid afib tonight with HR 170 treated with cardizem 10mg x 3 boluses and cardizem infusion. EKG reviewed. O2 saturations have been borderline and FIO2 increased to 100%, PEEP from 13 to 15 after ABG with PaO2 of 58 tonight. CXR shows R PTX at the base of R chest. Formal radiology reading pending. Daughter is deciding if she wants me to place a chest tube. I do not believe this gentleman will survive to his former quality of life given his recent deterioration, underlying cancer, the progressive process that brought him into the hospital which may have been ongoing since October and his underlying malnutrition. There is no culture data to confirm infection and he has been on broad spectrum antibiotics for several days now. I have tried to prepare his daughter for an unfavorable outcome and will suggest DNR. She is still deciding about the chest tube which unfortunately not going to change the bigger picture and may not even be effective given the location and size of the PTX. I have told her that it might cause damage to the lung or further deterioration. Additional critical care time for 11/13/2016 at the bedside this evening and excluding procedures is 90 minutes.
--- NOTE | 2016-11-14 01:48 | Procedure Note ---
Procedure Note Procedure Date Nov 13, 2016. Procedure Description Procedure Name: L femoral arterial line Procedure time out: side/site verified Consent obtained: written Time of procedure: 21:00 Performed by: attending Contraindications: none Description: Timeout was performed and L groin was prepared with chlorhexidine after standard sterile garb was donned. The patient was then draped in sterile fashion. 1cc of 1% lidocaine was used to numb the skin adjacent to the L femoral artery which was identified by ultrasound. The artery was then cannulated with a 20g needle and the wire was passed through the needle. The needle was removed and a 10cm 20g arterial catheter was placed over the wire and the wire removed. A transducer was then attached to the line and it was sutured into place. Complications: none Patient tolerated procedure: well Post-procedure vital signs: reviewed and stable
--- NOTE | 2016-11-14 01:56 | Procedure Note ---
Procedure Note Procedure Date Nov 14, 2016. Procedure Description Procedure Name: Placement of 8F pneumothorax tube. Procedure time out: side/site verified Consent obtained: written Time of procedure: 00:45 Performed by: attending Indications: therapeutic Contraindications: none Description: Patient was placed in upright seated position with R arm extended above his head. R lateral chest was prepped at the anterior and mid axillary line fomr the axilla to 10cm below the axilla. The patient was draped in sterile fashion after standard sterile garb was donned. I used 2cc of lidocaine to numb the rib and pleural space. I made a leti in the skin at the same site with a scalpel blade before placing the needle and 8F catheter which was over it into the pleural space. The catheter was fed off the needle and there was a vazquez of air. The catheter was then connected to a pleuravac. + air leak. CXR pending. Hemodynamics and oxygenation immediately improved. Complications: none Patient tolerated procedure: well Post-procedure vital signs: reviewed and stable
[2016-11-14] MEDS: HALOPERIDOL LACTATE 5 MG/ML 1 ML VIAL IV SCH ×4 (03:54→22:00)
[2016-11-14] MEDS: TUBE FEEDING WATER FLUSH NG SCH ×5 (03:54→20:21)
[2016-11-14] MEDS: PIPERACILL/TAZOBAC IV 3.375 GM in DEXTROSE 5% 100ML IV SCH ×3 (05:39→21:31)
[2016-11-14] MEDS: INSULIN ASPART 100 UNITS/ML 3 ML PEN SC SCH ×4 (06:29→21:00)
--- NOTE | 2016-11-14 07:01 | DIAGNOSTIC IMAGING REPORT ---
CHEST ONE VIEW PORTABLE CLINICAL HISTORY: s/p R chest tube tube position COMPARISON STUDY: 11/13/2016 FINDINGS: Small caliber right basilar chest tube positioned. No significant residual pneumothorax. All remaining tubes and lines are good position. Parenchymal findings are unchanged. IMPRESSION: No pneumothorax status post small caliber right basilar chest tube placement Electronically signed by: Vincenzo Olvera M.D. 11/14/2016 7:00 AM Dictated Date/Time: 11/14/2016 6:59 AM
--- NOTE | 2016-11-14 07:02 | DIAGNOSTIC IMAGING REPORT ---
CHEST ONE VIEW PORTABLE CLINICAL HISTORY: hypoxemia, ARDS dyspnea COMPARISON STUDY: 11/13/2016 6:42 AM FINDINGS: Interval development of right basilar pneumothorax. Maximum pleural separation is 2.4 cm. All remaining pleural-parenchymal findings are considered stable. Endotracheal tube 3 cm with the yuliana. IMPRESSION: Interval development of a right basilar pneumothorax. Electronically signed by: Vincenzo Olvera M.D. 11/14/2016 7:01 AM Dictated Date/Time: 11/14/2016 7:00 AM
[2016-11-14] MEDS: FENTANYL 1250MCG/250ML NSS 250 ML IV PRN ×2 (07:14→16:53)
[2016-11-14] MEDS: ALBUTEROL HFA 8 GM INHALER INH SCH ×4 (07:27→20:05)
[2016-11-14] MEDS: IPRATROPIUM BROMIDE HFA INHALER INH SCH ×4 (07:27→20:05)
[2016-11-14] MEDS ORDERED: VANCOMYCIN TROUGH SCH (07:30)
[2016-11-14 07:43] LABS: BASO % 0.1 %; BASO ABS # 0.01 K/uL (0-0.2); EOS % 1.4 %; HEMATOCRIT 25.4 % (42-52); IG% 0.9 %; LYMPH % 1.5 %; LYMPH ABS # 0.17 K/uL (1.2-3.4); MEAN CELL VOLUME 85.2 fL (80-100); MEAN CORPUSCULAR HEMOGLOBIN 28.5 pg (25-34); MEAN CORPUSCULAR HGB CONC 33.5 g/dl (32-36); MONO % 1.2 %; NEUT % 94.9 %; PLATELET COUNT 171 K/uL (130-400); RED BLOOD COUNT 2.98 M/uL (4.7-6.1); WHITE BLOOD COUNT 11.11 K/uL (4.8-10.8)
[2016-11-14] MEDS: VANCOMYCIN INJ 800 MG in SODIUM CHLORIDE 0.9% 250ML 250 ML IV SCH (08:08)
[2016-11-14] MEDS: HYDROCORTISONE IV 25 MG in SYRINGE 0 ML IV SCH (08:08)
[2016-11-14] MEDS: PROPOFOL IV EMULSION 10 MG/ML 100 ML VIAL IV PRN ×2 (08:18→14:04)
[2016-11-14 08:27] LABS: COMPLETE YES
[2016-11-14 08:38] LABS: BUN/CREATININE RATIO 30.5 (10-20); CALCIUM 8.3 mg/dl (8.5-10.1); CREATININE 0.78 mg/dl (0.60-1.40); MAGNESIUM 2.4 mg/dl (1.8-2.4); POTASSIUM 3.6 mmol/L (3.5-5.1)
[2016-11-14] MEDS: SULFAMETHOXAZOLE/TRIMETHOPRIM DS 800/160MG TAB PO SCH ×2 (09:24→21:27)
[2016-11-14] MEDS: ASPIRIN 81 MG CHEW NG SCH (09:24)
[2016-11-14] MEDS: DOCUSATE SODIUM 100 MG/10 ML UDC PO SCH ×2 (09:24→21:27)
[2016-11-14] MEDS: MULTIVITAMINS W/MINERALS 15ML UDP PO SCH (09:24)
[2016-11-14] MEDS: FUROSEMIDE INJ 40 MG in SYRINGE 0 ML IV SCH ×2 (09:25→16:20)
[2016-11-14] MEDS: CHLORHEXIDINE GLUCONATE 0.12% 480 ML MT SCH ×2 (09:25→21:29)
[2016-11-14] MEDS ORDERED: POTASSIUM CHLORIDE 20 MEQ/15 ML UDC PO ONE (09:45)
[2016-11-14 09:55] LABS: HEMATOCRIT 25.9 % (42-52)
[2016-11-14] MEDS: PANTOprazole INJ 40 MG in SYRINGE 0 ML IV SCH (10:17)
[2016-11-14 12:17] LABS: QUANTIF TB AG-NIL 0.01 IU/ML; QUANTIFERON NIL 0.08 IU/ML
[2016-11-14] MEDS: PEPTAMEN INTENSE VHP 1000ML BAG OG SCH (13:34)
--- NOTE | 2016-11-14 13:58 | CRITICAL CARE PROGRESS NOTE ---
DATE: 11/14/2016 DATE: 11/14/2016. SUBJECTIVE: Last night the patient went into a rapid atrial fibrillation and was given a total of 30 mg of Cardizem and placed on a Cardizem infusion. He had increasing oxygen requirements and hypotension. Chest x-ray showed a right basilar pneumothorax. I placed a small 8 Thai chest tube with resolution of the pneumothorax. His care was discussed in detail on multidisciplinary rounds. After the chest tube placement his hemodynamics improved and he is back in a sinus rhythm. His Levophed is off. He is tolerating tube feeds at 50 mL per hour and is not having any significant endotracheal tube secretions. He has not had a bowel movement. He remains on propofol, fentanyl and Cardizem infusions. PHYSICAL EXAMINATION: VITAL SIGNS: Maximum temperature 37.1, heart rate 90s, respiratory rate 18-20, blood pressure 95-101/50s, oxygen saturation 97%. 24-hour fluid balance positive 2 liters. Ventilator settings PRVC rate 20, tidal volume 450, FiO2 80%, PEEP 15. GENERAL: He is unresponsive to painful stimuli. LUNGS: Have decreased breath sounds on the right compared to left. The left has some mild expiratory wheezes in the base. HEART: Regular rate and rhythm. ABDOMEN: Very mild distension, but flat with hypoactive bowel sounds. EXTREMITIES: Cachectic. Slightly cool. No significant edema. LABORATORY DATA: White blood cell count 11.1, hemoglobin 8.5, hematocrit 25.4, platelets 171. Sodium 140, potassium 3.6, chloride 105, CO2 23, BUN 24, creatinine 0.78. Blood sugar 118, calcium 8.3, phosphorus 3, magnesium 2.4, blood sugar 120. Urine legionella antigen not detected. Quantitative TB test negative. MICROBIOLOGY DATA has been reviewed and there is no growth of bacteria, yeast or fungus on any of the BAL samples or expectorated sputum culture. There were some gram negative bacilli and gram negative cocci in the Gram stain of the expectorated sputum. IMAGING: Portable chest x-ray from this morning, status post chest tube was reviewed and shows no pneumothorax and unchanged bilateral infiltrates. MEDICATIONS AND INFUSIONS: Acetaminophen, albuterol, aspirin, chlorhexidine, diltiazem, Colace, Peptamen tube feeds, fentanyl infusion, p.r.n. fentanyl, Lasix, Haldol, subcutaneous heparin, insulin sliding scale, Atrovent, Levaquin day 4, multivitamin, Zofran, Protonix, Zosyn day 4, propofol, sterile water flush, Bactrim day 3, vancomycin day 4. IMPRESSION: 1. Acute hypoxemic respiratory failure with acute respiratory distress syndrome. Chest x-ray improved a little bit over the past several days, but he still is requiring high PEEP and FIO2. None of the data that we have thus far suggests bacterial or fungal pneumonia. 2. Stage [id number] nonsmall cell lung carcinoma status post chemotherapy and radiation therapy. 3. Status post nonST segment elevation myocardial infarction, ejection fraction this admission 40% without regional wall motion abnormalities. 4. Spontaneous right pneumothorax status post chest tube. 5. Hypotension, which may have been related to medications and last night certainly due to a pneumothorax under some tension, resolved. 6. Atrial fibrillation with rapid ventricular response, new onset, now in normal sinus rhythm. 7. Protein calorie malnutrition. 8. Acute anemia, follow up H\T\H today was stable compared to earlier this morning. No signs of active bleeding. 9. Hypokalemia and hypomagnesemia. PLAN: NEUROLOGIC: I have increased his Haldol to a scheduled 5 mg IV q. 4 hours. Continue propofol and fentanyl infusions and wean as able. He is a bit dyssynchronous with the ventilator and I doubt we can make many moves on that. PULMONARY: Continue antibiotics and await any recommendations from the pulmonary service. We have been treating him presuming that he has pneumonia, but unfortunately none of the data that we have collected thus far supports that as far as cultures go. We could consider adding caspofungin. Continue chest tube to wall suction. CARDIOVASCULAR: No acute issues. He is receiving a baby aspirin after his non-ST segment elevation myocardial infarction. He has a positive fluid balance and is being diuresed with Lasix. INFECTIOUS DISEASE: Continue antibiotics and discussed the possibility of using caspofungin for this man. Unfortunately, I am concerned that this may be a progression of his cancer, particularly when I look back at his CT scan from October. He has been afebrile and is on days 3 and 4 of antibiotics. GASTROINTESTINAL: Continue tube feeds and GI prophylaxis with proton pump inhibitor. RENAL: No acute issues. Continue diuresis. HEMATOLOGY/ONCOLOGY: I have asked the oncology service to weigh in on this man's prognosis and course thus far. Continue to watch for any signs of bleeding. The Lovenox was changed to unfractionated heparin secondary to drop in his platelets today. ENDOCRINE: Discontinue hydrocortisone. I have not seen much improvement in this patient's status over the past 4 days. He is very frail and I do not expect him to return to his previous quality of life should he survive this admission. I have discussed that with his daughter and I have asked her to think about goals of care. In the meantime I will await opinions by the pulmonary oncology service, particularly oncology regarding his prognosis before this illness. A do not resuscitate code status would be appropriate, but his daughter is not yet ready to make that decision. Thank you for asking me to see this patient. Please call me with any questions or concerns. Critical care time 80 minutes. KYLIE
[2016-11-14] MEDS: DILTIAZEM HCL INJ 125 MG in DEXTROSE 5% 100ML IV PRN (14:01)
--- NOTE | 2016-11-14 14:29 | Medical Consult ---
Consultation Date of Consultation: Nov 14, 2016. Attending Physician: Amrit Adams D.O. Reason for Consultation: Acute respiratory failure requiring mechanical ventilation in the setting of at least Stage IIIA NSCLC of the RUL History of Present Illness Mr. Dinh is A 76-year-old [place] male well-known to the consulting Medical Oncology Service. He is diagnosed with non-small cell lung cancer ( adenocarcinoma) involving the right upper lobe, T3, N2, Mx, at least stage IIIA. At diagnosis there were concerns about left sided hypermetabolic spot in the left side of the neck and contralateral mediastinal lymph nodes. His diagnostic work up was as follows: -CT scan of chest done on 06/04/2016 at [facility] showed 7.6 cm right upper lobe mass. Small right pleural effusion noted. 2 nonspecific left lung nodules measuring 3 to 5 mm. PET-CT scan done on 07/16/2016 At [facility] showed increase uptake noted in the left paraesophageal region with SUV of 5.2. 9 cm right upper lobe mass with possible central necrosis with SUV of 11, 1.8 cm right paratracheal lymph node with SUV of 5.5. Subcarinal lymph node with SUV 5.1. FDG avid right hilar lymph nodes noted. FDG avid mediastinal lymph node anterior to the left mainstem bronchus noted. Right pleural effusion noted. He was seen by core stripper, Dr. Phipps, at [facility], underwent bronchoscopic evaluation on 06/11/2016, transbronchial biopsy from the right upper lobe lung mass--> poorly differentiated adenocarcinoma, negative for EGFR, ALK and ROS 1 mutation. -MRI of the brain done on 07/22/2016 showed right-sided subdural hematoma ( chronic) with prominent right temporal fossa arachnoid cyst. Some regional mass effect with some midline shift to the left of 7 mm noted. His treatment was as follows: He received combined chemotherapy with weekly paclitaxel carboplatin, last cycle of chemotherapy was received on 09/23/2016. Also completed radiation treatment 10/01/16 (6000 cGy). He did receive blood transfusion support during the combined chemoradiation treatment. Received 2 units of PRBC at [facility] for symptomatic anemia. Interval history: He had a post treatment CT scan was obtained of the chest () to plan for consolidative chemotherapy which showed: Previously described right upper lobe mass no cavitary, measuring 7.5 x 5.9 centimeter ( previously measured 9 x 7.6 centimeter in July 2016). Interval increase in extensive right lower lobe consolidation since prior study. Innumerable nodules within the right lung, most evident within the right middle and lower lobes ( may reflect infectious versus lymphangitic tumor). Interval development of left upper and lower lobe airspace opacity. Trace right pleural effusion, decreased since prior exam. No improvement of intrathoracic adenopathy. Medical Oncology started the patient on Levaquin 500 mg daily x 10 days on 10/30 empirically. He had a follow-up on 11/04/2016 with Medical Oncology. He was complaining of productive cough and dyspnea at that time. A follow-up with pulmonology was arranged for further advice regarding possible infection involving bilateral lungs. Per the daughter, the core stripper agreed with the Levaquin treatment and also added a steroid. Additional history obtained from the hospital chart in the daughter at the patient 's bedside. On 11/10/2016, he started to notice increasing shortness of breath and increased heart rate after lunch. Around dinnertime, his daughter took his temperature transdermally and it was 101 degree Fahrenheit. It was then decided to bring the patient to [facility] where he was admitted for possible pneumonia. A rectal temperature in the [facility] , per the daughter, was 103 degree Fahrenheit. He was started empirically on vancomycin and cefepime. The patient 's condition remained worrisome and so he was transferred to a larger center, [facility] on 11/11/2016. He had a NSTEMI between admission on 11/11/16 and 11/12/16, echo shows LVEF at 40% Upon admission, his antibiotics remained empiric, but were switched to vancomycin, Zosyn, Bactrim and Levaquin. He was intubated early 11/12/16. A bronchoscopy was performed on 11/12/16 by the qc analyst. Bronchial alveolar lavage was performed on both sides; no obstruction, bleeding or mucous plugging. Watch Supervisor commented upon possible cardiogenic pulmonary edema. Bacterial culture from the lungs has been negative. Fungal culture and TB assay are pending. Legionella assay negative. Pulmonology has been involved in the patient 's care during this hospitalization and was in favor of treating the patient upon admission for pneumonia. Despite a few attempts to wean patient off mechanical ventilation, his oxygen saturation will not remained preserved. Large right pneumothorax noted yesterday , patient s/p successful chest tube placement by qc analyst. The qc analyst spoke with the patient 's family last evening and in her opinion the patient is not likely to improve. If he were able to get off the ventilation after a longer period of time, she questions the quality of life the patient will have. Especially in light of his advanced lung malignancy. The last time the patient was conscious, per the daughter, was last evening, prior to increasing his sedation. She did state that he was able to understand her. ROS not able to be obtained as the patient is sedated on mechanical ventilation. Past Medical/Surgical History Medical Problems: (1) Anemia Status: Acute (2) Chronic subdural hematoma Status: Acute (3) Lung cancer Status: Acute Family History Patient reports no known family medical history. Social History Smoking Status: Former Smoker Marital Status: Housing Status: lives with family Occupation Status: retired Allergies Coded Allergies: Finasteride (Verified Adverse Reaction, Unknown, BREAST GROWTH, 09/10/16) Current Inpatient Medications Current Inpatient Medications Medications (Trade) Dose Ordered Sig/Cindy Route Start Time Stop Time Status Last Admin Dose Admin Acetaminophen (Tylenol Tab) 650 mg Q4H PRN PO 11/11/16 14:00 12/11/16 13:59 Ondansetron HCl (Zofran Inj) 4 mg Q6H PRN IV 11/11/16 14:00 12/11/16 13:59 11/12/16 10:56 4 MG Piperacillin Sod/ Tazobactam Sod (Consult) 1 ea UD PRN N/A 11/11/16 14:30 12/11/16 14:29 Vancomycin HCl 1 ea 1 ea UD PRN N/A 11/11/16 14:30 12/11/16 14:29 Piperacillin Sod/ Tazobactam Sod 3.375 gm/Dextrose 115 ml @ 28.75 mls/ hr Q8H IV 11/11/16 22:00 11/18/16 21:59 11/14/16 05:39 28.75 MLS/HR Levofloxacin/Prmx (Levaquin / D5W/ Premixed D5W) 150 ml @ 100 mls/hr DAILY@1700 IV 11/11/16 17:00 11/18/16 16:59 11/13/16 15:47 100 MLS/HR Insulin Aspart (novoLOG ASPART) SLIDING SCALE G... ACHS SC 11/11/16 16:15 12/11/16 16:14 11/11/16 18:26 5 UNITS Glucose (Glucose 40% Gel) 15-30 GRAMS 15 GRAMS... UD PRN PO 11/11/16 16:15 12/11/16 16:14 Glucose (Glucose Chew Tab) 4-8 Tablets 4 Tabl... UD PRN PO 11/11/16 16:15 12/11/16 16:14 Dextrose (Dextrose 50% 50ML Syringe) 25-50ML OF 50% DW IV FOR... UD PRN IV 11/11/16 16:15 12/11/16 16:14 Glucagon (Glucagon Inj) 1 mg UD PRN SQ 11/11/16 16:15 12/11/16 16:14 Miscellaneous Information 1 ea 1 ea UD N/A 11/11/16 19:09 12/11/16 19:08 Fentanyl Citrate (Fentanyl Drip 1250MCG/250 Nss) 250 ml @ 0 mls/hr Q0M PRN IV 11/11/16 22:45 11/25/16 22:44 11/14/16 07:14 30 MLS/HR Propofol 1 dose 1 dose UD PRN IV 11/11/16 22:45 11/14/16 22:44 11/14/16 08:18 1 DOSE Norepinephrine Bitartrate/ Dextrose (Levophed Inj/ D5W 500ml) 508 ml @ 0 mls/hr Q0M PRN IV 11/11/16 22:33 12/11/16 22:32 11/13/16 14:03 38 MLS/HR Chlorhexidine Gluconate (Peridex Oral Soln) 15 ml BID MT 11/12/16 09:00 12/12/16 08:59 11/14/16 09:25 15 ML Trimethoprim/ Sulfamethoxazole (Septra Ds 800/ 160MG Tab) 1 tab Q12 PO 11/12/16 09:00 11/19/16 08:59 11/14/16 09:24 1 TAB Ipratropium [place] (Atrovent Hfa Inhaler) 4 puffs QIDR INH 11/12/16 08:00 12/12/16 07:59 11/14/16 11:32 4 PUFFS Albuterol 4 puffs 4 puffs QIDR INH 11/12/16 08:00 12/12/16 07:59 11/14/16 11:32 4 PUFFS Pantoprazole Sodium/Syringe (Protonix Inj/ Syringe) 10 ml @ 5 mls/min DAILY@11 IV 11/12/16 11:00 12/12/16 10:59 11/14/16 10:17 5 MLS/MIN Fentanyl Citrate (Fentanyl Inj) 50 mcg Q3H PRN IV 11/12/16 10:00 11/26/16 09:59 11/13/16 18:11 50 MCG Multivitamins Therapeutic (Cerovite Liquid) 15 ml QAM PO 11/13/16 10:00 12/13/16 09:59 11/14/16 09:24 15 ML Docusate Sodium (coLACE SYRUP) 100 mg BID PO 11/13/16 21:00 12/13/16 20:59 11/14/16 09:24 100 MG Aspirin (Aspirin Chew) 81 mg DAILY NG 11/14/16 09:00 12/14/16 08:59 11/14/16 09:24 81 MG Enteral Nutritional Formula (Peptamen Intense VHP) 1,000 ml UD OG 11/13/16 15:30 12/13/16 15:29 Sterile Water 1 ea 1 ea Q4 NG 11/13/16 20:00 12/13/16 19:59 11/14/16 11:28 1 EA Diltiazem HCl 125 mg/Dextrose 125 ml @ 0 mls/hr Q0M PRN IV 11/13/16 22:30 12/13/16 22:29 11/13/16 22:29 5 MLS/HR Furosemide/Syringe (Lasix Inj/ Syringe) 4 ml @ 4 mls/min BID17 IV 11/14/16 09:00 12/14/16 08:59 11/14/16 09:25 4 MLS/MIN Haloperidol Lactate (Haldol Inj) 5 mg Q6H IV 11/14/16 10:00 12/14/16 09:59 11/14/16 10:16 5 MG Heparin Sodium (Porcine) 5000 unit 5,000 unit Q12 SQ 11/14/16 21:00 12/14/16 20:59 Vancomycin HCl/ Sodium Chloride (Vancomycin Inj/ Nss 250ml) 265 ml @ 125 mls/hr Q10H IV 11/14/16 18:00 11/17/16 23:59 Physical Exam Date Time Temp Pulse Resp B/P Pulse Ox O2 Delivery O2 Flow Rate FiO2 11/14/16 11:32 80 11/14/16 11:20 36.8 99 20 108/49 91 Mechanical Ventilator 80 95/53 11/14/16 11:15 90 11/14/16 11:15 Mechanical Ventilator 80 11/14/16 11:00 96 18 109/50 92 101/52 11/14/16 10:45 100 18 107/49 91 95/53 11/14/16 10:30 97 25 117/52 91 11/14/16 10:15 95 20 113/53 90 11/14/16 10:00 95 17 122/54 91 103/59 11/14/16 09:45 93 17 121/55 92 11/14/16 09:34 92 21 113/52 92 103/51 11/14/16 09:30 36.7 94 20 118/53 97 Mechanical Ventilator 50.0 100 103/59 11/14/16 09:30 92 17 117/32 92 11/14/16 09:15 94 15 111/52 91 11/14/16 09:00 93 18 114/51 90 94/54 11/14/16 08:45 93 20 109/52 90 11/14/16 08:30 94 21 105/49 90 11/14/16 08:15 95 17 111/50 91 11/14/16 08:05 80 11/14/16 08:00 96 20 115/51 93 101/50 11/14/16 07:45 91 23 108/49 97 11/14/16 07:40 100 11/14/16 07:32 91 21 101/50 97 96/49 11/14/16 07:30 Mechanical Ventilator 80 11/14/16 07:30 36.7 94 20 94/48 97 Mechanical Ventilator 50.0 100 97/50 11/14/16 07:30 90 19 103/50 97 11/14/16 07:30 90 11/14/16 07:15 88 18 96/47 97 11/14/16 07:00 89 16 100/52 97 94/48 11/14/16 06:15 90 20 101/56 97 11/14/16 06:00 87 21 101/54 97 11/14/16 05:45 89 20 95/55 96 11/14/16 05:30 93 22 97/55 96 11/14/16 05:15 91 18 98/57 95 11/14/16 05:00 95 19 99/50 96 11/14/16 04:45 96 18 102/59 95 11/14/16 04:30 94 17 104/57 96 11/14/16 04:15 96 22 106/54 95 11/14/16 04:00 100 11/14/16 04:00 37.1 92 25 111/56 96 11/14/16 04:00 Mechanical Ventilator 100 11/14/16 03:45 96 18 122/61 97 11/14/16 03:30 92 17 112/62 96 11/14/16 03:15 90 18 116/60 96 11/14/16 03:05 90 11/14/16 03:00 91 17 110/62 97 11/14/16 02:45 80 19 103/56 98 11/14/16 02:30 79 16 100/53 98 11/14/16 02:15 82 17 97/51 98 11/14/16 02:00 87 17 100/55 98 11/14/16 01:45 85 16 106/55 98 11/14/16 01:40 88 16 99/56 98 11/14/16 01:30 92 16 114/54 98 11/14/16 01:15 101 24 133/66 99 11/14/16 01:10 99 22 111/68 98 11/14/16 01:00 109 25 115/77 94 11/14/16 00:50 92 18 96/55 96 11/14/16 00:45 104 23 94/53 81 11/14/16 00:30 98 20 89/59 92 11/14/16 00:20 104 20 75/55 92 11/14/16 00:10 111 14 84/53 91 11/14/16 00:00 37.2 114 25 113/76 91 11/14/16 00:00 Mechanical Ventilator 100 11/14/16 00:00 100 11/13/16 23:50 120 26 104/59 91 11/13/16 23:40 119 24 107/65 92 11/13/16 23:30 115 21 92/62 91 11/13/16 23:20 115 23 96/66 92 11/13/16 23:10 116 22 117/65 91 11/13/16 23:00 37.0 126 24 117/64 90 11/13/16 22:50 90 11/13/16 22:50 135 23 99/76 91 11/13/16 22:30 112 17 93/65 90 11/13/16 22:20 128 18 107/59 91 11/13/16 22:00 126 16 98/66 94 11/13/16 21:30 128 16 124/88 94 11/13/16 21:20 133 18 94/76 93 11/13/16 21:00 136 19 86/60 93 11/13/16 20:50 132 25 107/63 92 11/13/16 20:30 140 27 84/63 89 11/13/16 20:00 80 11/13/16 20:00 37.0 129 24 127/85 90 11/13/16 20:00 Mechanical Ventilator 90 11/13/16 19:45 60 11/13/16 19:30 126 22 97/69 91 11/13/16 19:15 126 18 102/51 90 11/13/16 19:00 124 20 97/79 90 11/13/16 18:30 132 23 103/62 89 Mechanical Ventilator 11/13/16 18:15 132 19 80/57 92 11/13/16 18:00 134 29 129/83 94 11/13/16 17:45 134 20 115/72 93 11/13/16 17:30 127 22 115/80 91 11/13/16 17:15 127 15 125/72 91 11/13/16 17:00 128 20 117/81 90 11/13/16 16:45 127 20 100/60 91 11/13/16 16:39 60 11/13/16 16:30 125 20 88/60 91 11/13/16 16:15 122 25 112/74 91 11/13/16 16:00 123 20 124/70 91 11/13/16 16:00 60 11/13/16 16:00 91 Mechanical Ventilator 60 11/13/16 15:45 127 19 109/62 92 11/13/16 15:30 36.7 125 22 121/72 93 11/13/16 14:18 60 11/13/16 14:15 110 24 100/60 91 11/13/16 14:00 114 24 102/63 92 11/13/16 13:45 117 25 87/57 91 11/13/16 13:30 36.6 122 24 112/66 90 Mechanical Ventilator 80 General Appearance: no apparent distress, + thin Respiratory/Chest: + pertinent finding (on mechanical ventilation, coarse) Skin: warm/dry, + pallor Laboratory Results 11/11/16 14:27 Red Blood Count 3.49, Mean Corpuscular Volume 85.4, Mean Corpuscular Hemoglobin 29.2, Mean Corpuscular Hemoglobin Concent 34.2, Mean Platelet Volume 8.4, Neutrophils (%) (Auto) 96.8, Lymphocytes (%) (Auto) 2.0, Monocytes (%) (Auto) 0.5, Eosinophils (%) (Auto) 0.1, Basophils (%) (Auto) 0.1, Neutrophils # (Auto) 17.13, Lymphocytes # (Auto) 0.35, Monocytes # (Auto) 0.09, Eosinophils # (Auto) 0.02, Basophils # (Auto) 0.01 11/11/16 21:58 Red Blood Count 3.93, Mean Corpuscular Volume 87.3, Mean Corpuscular Hemoglobin 28.8, Mean Corpuscular Hemoglobin Concent 32.9, Mean Platelet Volume 8.5 11/12/16 05:24 Red Blood Count 3.48, Mean Corpuscular Volume 85.9, Mean Corpuscular Hemoglobin 28.2, Mean Corpuscular Hemoglobin Concent 32.8, Mean Platelet Volume 8.4, Neutrophils (%) (Auto) 96.4, Lymphocytes (%) (Auto) 1.6, Monocytes (%) (Auto) 1.2, Eosinophils (%) (Auto) 0.1, Basophils (%) (Auto) 0.1, Neutrophils # (Auto) 18.17, Lymphocytes # (Auto) 0.30, Monocytes # (Auto) 0.23, Eosinophils # (Auto) 0.02, Basophils # (Auto) 0.01 11/12/16 11:15 11/12/16 17:30 11/13/16 07:26 Red Blood Count 3.43, Mean Corpuscular Volume 84.8, Mean Corpuscular Hemoglobin 28.3, Mean Corpuscular Hemoglobin Concent 33.3, Mean Platelet Volume 8.2, Neutrophils (%) (Auto) 95.4, Lymphocytes (%) (Auto) 1.5, Monocytes (%) (Auto) 1.2, Eosinophils (%) (Auto) 0.9, Basophils (%) (Auto) 0.1, Neutrophils # (Auto) 17.17, Lymphocytes # (Auto) 0.27, Monocytes # (Auto) 0.22, Eosinophils # (Auto) 0.17, Basophils # (Auto) 0.01 11/14/16 07:35 Red Blood Count 2.98, Mean Corpuscular Volume 85.2, Mean Corpuscular Hemoglobin 28.5, Mean Corpuscular Hemoglobin Concent 33.5, Mean Platelet Volume 8.0, Neutrophils (%) (Auto) 94.9, Lymphocytes (%) (Auto) 1.5, Monocytes (%) (Auto) 1.2, Eosinophils (%) (Auto) 1.4, Basophils (%) (Auto) 0.1, Neutrophils # (Auto) 10.55, Lymphocytes # (Auto) 0.17, Monocytes # (Auto) 0.13, Eosinophils # (Auto) 0.15, Basophils # (Auto) 0.01 11/14/16 09:49 11/11/16 14:27 11/11/16 21:58 11/12/16 05:24 11/12/16 11:15 11/13/16 07:26 11/13/16 20:47 11/14/16 07:35 Test 11/11/16 14:27 11/11/16 15:20 11/11/16 16:32 11/11/16 16:38 White Blood Count 17.68 K/uL (4.8-10.8) Red Blood Count 3.49 M/uL (4.7-6.1) Hemoglobin 10.2 g/dL (14.0-18.0) Hematocrit 29.8 % (42-52) Mean Corpuscular Volume 85.4 fL (80-100) Mean Corpuscular Hemoglobin 29.2 pg (25-34) Mean Corpuscular Hemoglobin Concent 34.2 g/dl (32-36) Platelet Count 312 K/uL (130-400) Mean Platelet Volume 8.4 fL (7.4-10.4) Neutrophils (%) (Auto) 96.8 % Lymphocytes (%) (Auto) 2.0 % Monocytes (%) (Auto) 0.5 % Eosinophils (%) (Auto) 0.1 % Basophils (%) (Auto) 0.1 % Neutrophils # (Auto) 17.13 K/uL (1.4-6.5) Lymphocytes # (Auto) 0.35 K/uL (1.2-3.4) Monocytes # (Auto) 0.09 K/uL (0.11-0.59) Eosinophils # (Auto) 0.02 K/uL (0-0.5) Basophils # (Auto) 0.01 K/uL (0-0.2) RDW Standard Deviation 56.4 fL (36.4-46.3) RDW Coefficient of Variation 18.1 % (11.5-14.5) Immature Granulocyte % (Auto) 0.5 % Immature Granulocyte # (Auto) 0.08 K/uL (0.00-0.02) Prothrombin Time 13.4 SECONDS (9.0-12.0) Prothromb Time International Ratio 1.2 (0.9-1.1) Activated Partial Thromboplast Time 36.0 SECONDS (21.0-31.0) Partial Thromboplastin Ratio 1.4 Anion Gap 11.0 mmol/L (3-11) Estimated GFR () 102.0 Estimated GFR (Non- 88.0 BUN/Creatinine Ratio 22.8 (10-20) Lactic Acid Level 3.6 mmol/L (0.4-2.0) Calcium Level 7.9 mg/dl (8.5-10.1) Total Bilirubin 0.4 mg/dl (0.2-1) Aspartate Amino Transf (AST/SGOT) 33 U/L (15-37) Alanine Aminotransferase (ALT/SGPT) 37 U/L (12-78) Alkaline Phosphatase 97 U/L (45-117) Total Protein 7.4 gm/dl (6.4-8.2) Albumin 1.8 gm/dl (3.4-5.0) Globulin 5.6 gm/dl (2.5-4.0) Albumin/Globulin Ratio 0.3 (0.9-2) Urine Color DK YELLOW Urine Appearance CLOUDY (CLEAR) Urine pH 5.0 (4.5-7.5) Urine Specific [place] 1.027 (1.000-1.030) Urine Protein 1+ (NEG) Urine Glucose (UA) 3+ (NEG) Urine Ketones NEG (NEG) Urine Occult Blood NEG (NEG) Urine Nitrite NEG (NEG) Urine Bilirubin NEG (NEG) Urine Urobilinogen NEG (NEG) Urine Leukocyte Esterase NEG (NEG) Urine WBC (Auto) 1-5 /hpf (0-5) Urine RBC (Auto) 0-4 /hpf (0-4) Urine Hyaline Casts (Auto) 1-5 /lpf (0-5) Urine Epithelial Cells (Auto) >30 /lpf (0-5) Urine Bacteria (Auto) NEG (NEG) Urine Pathogenic Casts 1-5 GRANULAR CASTS /lpf (0) Urine Mucus PRESENT (NONE PRSENT) Urine Legionella Antigen NOT DETECTED Bedside Glucose 330 mg/dl (70-99) TB Test (QFT) Nil 0.08 IU/ML TB Test (QFT) Mitogen Minus Nil 0.60 IU/ML TB Test (QFT) Antigen Minus Nil 0.01 IU/ML TB Test (QFT) NEGATIVE (NEGATIVE) Test 11/11/16 20:30 11/11/16 21:17 11/11/16 21:37 11/11/16 21:58 Bedside Glucose 90 mg/dl (70-99) 125 mg/dl (70-99) Blood Gas Sample Site R Radial Bedside Blood Gas pH (LAB) 7.40 (7.35-7.45) Bedside Blood Gas pCO2 (LAB) 40 mmHg (35-46) Bedside Blood Gas pO2 (LAB) 41 mmHg (80-95) Bedside Blood Gas HCO3 (LAB) 25 meq/L (19-24) Bedside Blood Gas Total CO2 26 mEq/l (24-31) Bedside Blood Gas Base Excess (LAB) 0.0 meq/L (-9-1.8) Bedside Blood Gas O2 Saturation 77.0 % (90-95) James Test Pass Oxygen Delivery Device Cannula White Blood Count 34.42 K/uL (4.8-10.8) Red Blood Count 3.93 M/uL (4.7-6.1) Hemoglobin 11.3 g/dL (14.0-18.0) Hematocrit 34.3 % (42-52) Mean Corpuscular Volume 87.3 fL (80-100) Mean Corpuscular Hemoglobin 28.8 pg (25-34) Mean Corpuscular Hemoglobin Concent 32.9 g/dl (32-36) Platelet Count 481 K/uL (130-400) Mean Platelet Volume 8.5 fL (7.4-10.4) RDW Standard Deviation 57.7 fL (36.4-46.3) RDW Coefficient of Variation 17.9 % (11.5-14.5) Neutrophils % (Manual) 96.5 % Lymphocytes % (Manual) 2.6 % Monocytes % (Manual) 0.9 % Neutrophils # (Manual) 33.22 K/uL (1.4-6.5) Total Absolute Neutrophils 33.22 K/uL (1.4-6.5) Lymphocytes # (Manual) 0.89 K/uL (1.2-3.4) Total Absolute Lymphocytes 0.89 K/uL (1.2-3.4) Monocytes # (Manual) 0.31 K/uL (0.11-0.59) Polychromasia 1+ Echinocytes 1+ Schistocytes OCCASIONAL Anion Gap 11.0 mmol/L (3-11) Est Creatinine Clear Calc Drug Dose 68.9 ml/min Estimated GFR () 108.4 Estimated GFR (Non- 93.5 BUN/Creatinine Ratio 28.3 (10-20) Lactic Acid Level 3.2 mmol/L (0.4-2.0) Calcium Level 8.5 mg/dl (8.5-10.1) Test 11/12/16 00:27 11/12/16 02:18 11/12/16 05:15 11/12/16 05:24 Blood Gas Sample Site Art Line Bedside Blood Gas pH (LAB) 7.32 (7.35-7.45) Bedside Blood Gas pCO2 (LAB) 46 mmHg (35-46) Bedside Blood Gas pO2 (LAB) 72 mmHg (80-95) Bedside Blood Gas HCO3 (LAB) 24 meq/L (19-24) Bedside Blood Gas Total CO2 25 mEq/l (24-31) Bedside Blood Gas Base Excess (LAB) -2.0 meq/L (-9-1.8) Bedside Blood Gas O2 Saturation 93.0 % (90-95) James Test NA Oxygen Delivery Device Ventilator Bedside Oxygen Rate (breaths/min) 18 Blood Gas Minute Ventilation 11.9 Bedside FiO2 100 % Blood Gas Tidal Volume 450 Blood Gas PEEP 15 Bedside Glucose 146 mg/dl (70-99) Troponin I 3.290 ng/ml (0-0.045) White Blood Count 18.85 K/uL (4.8-10.8) Red Blood Count 3.48 M/uL (4.7-6.1) Hemoglobin 9.8 g/dL (14.0-18.0) Hematocrit 29.9 % (42-52) Mean Corpuscular Volume 85.9 fL (80-100) Mean Corpuscular Hemoglobin 28.2 pg (25-34) Mean Corpuscular Hemoglobin Concent 32.8 g/dl (32-36) Platelet Count 293 K/uL (130-400) Mean Platelet Volume 8.4 fL (7.4-10.4) Neutrophils (%) (Auto) 96.4 % Lymphocytes (%) (Auto) 1.6 % Monocytes (%) (Auto) 1.2 % Eosinophils (%) (Auto) 0.1 % Basophils (%) (Auto) 0.1 % Neutrophils # (Auto) 18.17 K/uL (1.4-6.5) Lymphocytes # (Auto) 0.30 K/uL (1.2-3.4) Monocytes # (Auto) 0.23 K/uL (0.11-0.59) Eosinophils # (Auto) 0.02 K/uL (0-0.5) Basophils # (Auto) 0.01 K/uL (0-0.2) RDW Standard Deviation 56.0 fL (36.4-46.3) RDW Coefficient of Variation 17.7 % (11.5-14.5) Immature Granulocyte % (Auto) 0.6 % Immature Granulocyte # (Auto) 0.12 K/uL (0.00-0.02) Polychromasia 1+ Anion Gap 10.0 mmol/L (3-11) Est Creatinine Clear Calc Drug Dose 82.0 ml/min Estimated GFR () 116.4 Estimated GFR (Non- 100.4 BUN/Creatinine Ratio 34.2 (10-20) Lactic Acid Level 1.2 mmol/L (0.4-2.0) Calcium Level 7.4 mg/dl (8.5-10.1) Phosphorus Level 3.6 mg/dl (2.5-4.9) Magnesium Level 2.0 mg/dl (1.8-2.4) Total Bilirubin 0.3 mg/dl (0.2-1) Direct Bilirubin 0.1 mg/dl (0-0.2) Aspartate Amino Transf (AST/SGOT) 33 U/L (15-37) Alanine Aminotransferase (ALT/SGPT) 32 U/L (12-78) Alkaline Phosphatase 90 U/L (45-117) C-Reactive Protein 18.70 mg/dl (0-0.29) Total Protein 6.7 gm/dl (6.4-8.2) Albumin 1.5 gm/dl (3.4-5.0) Procalcitonin 8.01 ng/mL (0-0.5) Test 11/12/16 06:15 11/12/16 06:40 11/12/16 11:10 11/12/16 11:15 Blood Gas Sample Site Art Line Bedside Blood Gas pH (LAB) 7.35 (7.35-7.45) Bedside Blood Gas pCO2 (LAB) 48 mmHg (35-46) Bedside Blood Gas pO2 (LAB) 96 mmHg (80-95) Bedside Blood Gas HCO3 (LAB) 27 meq/L (19-24) Bedside Blood Gas Total CO2 28 mEq/l (24-31) Bedside Blood Gas Base Excess (LAB) 1.0 meq/L (-9-1.8) Bedside Blood Gas O2 Saturation 97.0 % (90-95) James Test NA Oxygen Delivery Device Ventilator Bedside Oxygen Rate (breaths/min) 20 Blood Gas Minute Ventilation 10.7 Bedside FiO2 80 % Blood Gas Tidal Volume 450 Blood Gas PEEP 15 Bedside Glucose 109 mg/dl (70-99) 95 mg/dl (70-99) Anion Gap 10.0 mmol/L (3-11) Est Creatinine Clear Calc Drug Dose 82.0 ml/min Estimated GFR () 116.4 Estimated GFR (Non- 100.4 BUN/Creatinine Ratio 37.4 (10-20) Calcium Level 7.9 mg/dl (8.5-10.1) Troponin I 2.320 ng/ml (0-0.045) Test 11/12/16 13:16 11/12/16 16:05 11/12/16 17:30 11/12/16 22:20 Blood Gas Sample Site Art Line Bedside Blood Gas pH (LAB) 7.39 (7.35-7.45) Bedside Blood Gas pCO2 (LAB) 43 mmHg (35-46) Bedside Blood Gas pO2 (LAB) 63 mmHg (80-95) Bedside Blood Gas HCO3 (LAB) 26 meq/L (19-24) Bedside Blood Gas Total CO2 27 mEq/l (24-31) Bedside Blood Gas Base Excess (LAB) 1.0 meq/L (-9-1.8) Bedside Blood Gas O2 Saturation 91.0 % (90-95) James Test NA Oxygen Delivery Device Ventilator Bedside Oxygen Rate (breaths/min) 20 Blood Gas Minute Ventilation 10.2 Bedside FiO2 60 % Blood Gas Tidal Volume 450 Blood Gas PEEP 13 Bedside Glucose 123 mg/dl (70-99) 135 mg/dl (70-99) Troponin I 1.830 ng/ml (0-0.045) Test 11/13/16 06:20 11/13/16 07:26 11/13/16 09:11 11/13/16 11:07 Bedside Glucose 166 mg/dl (70-99) 181 mg/dl (70-99) White Blood Count 18.00 K/uL (4.8-10.8) Red Blood Count 3.43 M/uL (4.7-6.1) Hemoglobin 9.7 g/dL (14.0-18.0) Hematocrit 29.1 % (42-52) Mean Corpuscular Volume 84.8 fL (80-100) Mean Corpuscular Hemoglobin 28.3 pg (25-34) Mean Corpuscular Hemoglobin Concent 33.3 g/dl (32-36) Platelet Count 331 K/uL (130-400) Mean Platelet Volume 8.2 fL (7.4-10.4) Neutrophils (%) (Auto) 95.4 % Lymphocytes (%) (Auto) 1.5 % Monocytes (%) (Auto) 1.2 % Eosinophils (%) (Auto) 0.9 % Basophils (%) (Auto) 0.1 % Neutrophils # (Auto) 17.17 K/uL (1.4-6.5) Lymphocytes # (Auto) 0.27 K/uL (1.2-3.4) Monocytes # (Auto) 0.22 K/uL (0.11-0.59) Eosinophils # (Auto) 0.17 K/uL (0-0.5) Basophils # (Auto) 0.01 K/uL (0-0.2) RDW Standard Deviation 55.7 fL (36.4-46.3) RDW Coefficient of Variation 17.7 % (11.5-14.5) Immature Granulocyte % (Auto) 0.9 % Immature Granulocyte # (Auto) 0.16 K/uL (0.00-0.02) Anion Gap 10.0 mmol/L (3-11) Est Creatinine Clear Calc Drug Dose 71.9 ml/min Estimated GFR () 111.1 Estimated GFR (Non- 95.8 BUN/Creatinine Ratio 34.7 (10-20) Estimated Average Glucose 126 mg/dl Hemoglobin A1c 6.0 % (4.5-5.6) Calcium Level 8.1 mg/dl (8.5-10.1) Phosphorus Level 2.4 mg/dl (2.5-4.9) Magnesium Level 2.1 mg/dl (1.8-2.4) Vancomycin Level Trough 19.5 mcg/ml (SEE COMMENT) Blood Gas Sample Site Art Line Bedside Blood Gas pH (LAB) 7.41 (7.35-7.45) Bedside Blood Gas pCO2 (LAB) 38 mmHg (35-46) Bedside Blood Gas pO2 (LAB) 79 mmHg (80-95) Bedside Blood Gas HCO3 (LAB) 24 meq/L (19-24) Bedside Blood Gas Total CO2 25 mEq/l (24-31) Bedside Blood Gas Base Excess (LAB) -1.0 meq/L (-9-1.8) Bedside Blood Gas O2 Saturation 96.0 % (90-95) James Test NA Oxygen Delivery Device Ventilator Bedside Oxygen Rate (breaths/min) 20 Blood Gas Minute Ventilation 11.3 Bedside FiO2 80 % Blood Gas Tidal Volume 450 Blood Gas PEEP 13 Test 11/13/16 15:45 11/13/16 20:47 11/13/16 22:16 11/13/16 22:49 Bedside Glucose 157 mg/dl (70-99) Anion Gap 12.0 mmol/L (3-11) Est Creatinine Clear Calc Drug Dose 51.9 ml/min Estimated GFR () 97.2 Estimated GFR (Non- 83.8 BUN/Creatinine Ratio 29.0 (10-20) Calcium Level 8.1 mg/dl (8.5-10.1) Phosphorus Level 3.4 mg/dl (2.5-4.9) Magnesium Level 1.8 mg/dl (1.8-2.4) Bedside Glucose (other) 167 mg/dl (70-99) Blood Gas Sample Site Art Line Bedside Blood Gas pH (LAB) 7.45 (7.35-7.45) Bedside Blood Gas pCO2 (LAB) 37 mmHg (35-46) Bedside Blood Gas pO2 (LAB) 58 mmHg (80-95) Bedside Blood Gas HCO3 (LAB) 26 meq/L (19-24) Bedside Blood Gas Total CO2 27 mEq/l (24-31) Bedside Blood Gas Base Excess (LAB) 2.0 meq/L (-9-1.8) Bedside Blood Gas O2 Saturation 91.0 % (90-95) James Test NA Oxygen Delivery Device Ventilator Bedside Oxygen Rate (breaths/min) 25 Blood Gas Minute Ventilation 16.9 Bedside FiO2 90 % Blood Gas Tidal Volume 450 Blood Gas PEEP 13 Test 11/14/16 06:28 11/14/16 07:35 11/14/16 10:52 Bedside Glucose 120 mg/dl (70-99) 140 mg/dl (70-99) White Blood Count 11.11 K/uL (4.8-10.8) Red Blood Count 2.98 M/uL (4.7-6.1) Hemoglobin 8.5 g/dL (14.0-18.0) Hematocrit 25.4 % (42-52) Mean Corpuscular Volume 85.2 fL (80-100) Mean Corpuscular Hemoglobin 28.5 pg (25-34) Mean Corpuscular Hemoglobin Concent 33.5 g/dl (32-36) Platelet Count 171 K/uL (130-400) Mean Platelet Volume 8.0 fL (7.4-10.4) Neutrophils (%) (Auto) 94.9 % Lymphocytes (%) (Auto) 1.5 % Monocytes (%) (Auto) 1.2 % Eosinophils (%) (Auto) 1.4 % Basophils (%) (Auto) 0.1 % Neutrophils # (Auto) 10.55 K/uL (1.4-6.5) Lymphocytes # (Auto) 0.17 K/uL (1.2-3.4) Monocytes # (Auto) 0.13 K/uL (0.11-0.59) Eosinophils # (Auto) 0.15 K/uL (0-0.5) Basophils # (Auto) 0.01 K/uL (0-0.2) RDW Standard Deviation 55.5 fL (36.4-46.3) RDW Coefficient of Variation 17.7 % (11.5-14.5) Immature Granulocyte % (Auto) 0.9 % Immature Granulocyte # (Auto) 0.10 K/uL (0.00-0.02) Red Blood Cell Morphology Unremarkable Anion Gap 12.0 mmol/L (3-11) Est Creatinine Clear Calc Drug Dose 58.8 ml/min Estimated GFR () 103.1 Estimated GFR (Non- 88.9 BUN/Creatinine Ratio 30.5 (10-20) Calcium Level 8.3 mg/dl (8.5-10.1) Phosphorus Level 3.0 mg/dl (2.5-4.9) Magnesium Level 2.4 mg/dl (1.8-2.4) Vancomycin Level Trough 22.0 mcg/ml (SEE COMMENT) Date/Time Source Procedure Growth Status 11/11/16 15:36 Nasal MRSA DNA Surveillance Screen - Final Specimen Negative for MRSA by DNA Probe Complete 11/11/16 23:05 Bronchial Washings Right Middle Lobe Gram Stain - Final Complete 11/11/16 23:05 Bronchial Washings Right Middle Lobe Bronchoalveolar Lavage Culture - Final NO GROWTH Complete 11/11/16 23:05 Bronchial Washings Right Upper Lobe Gram Stain - Final Complete 11/11/16 23:05 Bronchial Washings Right Upper Lobe Bronchoalveolar Lavage Culture - Final NO GROWTH Complete 11/11/16 23:05 Bronchial Washings Left Lobe Gram Stain - Final Complete 11/11/16 23:05 Bronchial Washings Left Lobe Bronchoalveolar Lavage Culture - Final NO GROWTH Complete 11/11/16 15:36 Sputum Expectorated Sputum Gram Stain - Final Complete 11/11/16 15:36 Sputum Expectorated Sputum Sputum Culture - Final MODERATE NORMAL ADY. Complete CXR from 10/14/16: 1. Interval development of extensive left lung airspace opacities 2. Persistent but slightly improved right lung airspace opacities 3. Soft tissue prominence of the right paratracheal region Interval CXR showed improving bilateral findings, until in 2300 hr 11/13/16, CXR showed : Interval development of a right basilar pneumothorax. CXR from 11/14/16: No pneumothorax status post small caliber right basilar chest tube placement Assessment & Plan 1. Acute hypoxemic respiratory failure with acute respiratory distress syndrome * Uncertain etiology- bacterial infection not identified via bronchial washings * Legionella negative * Fungal culture pending * TB assay pending * CT of chest unable to be obtained as patient on mechanical ventilation to see NSCLC status (last CT 18 days ago on 10/27/16); of note, bronchoscopy was negative for obstruction * Management per qc analyst team- patient unable to weaned off vent to date * Watch Supervisor team placed oncology consult to discuss about patient's prognosis from cancer standpoint, which would be poor; Dr Tinoco will come to the hospital later today to discuss with family 2. Non-ST segment elevation myocardial infarction * Ejection fraction 40%. No regional wall motion abnormalities on echocardiogram. * May be secondary to demand ischemia 3. Non small cell lung carcinoma, adenocarcinoma, stage T3 N3- at least stage IIIA * S/p chemoradiation, completed in 09/23 * CT scan of chest from 10/24 showed partial response, so any further treatment planned after this scan would have been palliative in nature 4. Malnutrition -present prior to admission from advanced cancer, patient now receiving nutrition via G tube 5. Acute anemia, stable. No signs of active bleeding. I performed a history and physical examination of the patient and discussed the management with Pamela Telles PA-C . I reviewed her note and agree with the documented findings and plan of care. In summary he is a case of locally advanced non-small cell lung cancer, received combined chemotherapy and radiation treatment, recently he was treated for possible pneumonia, now admitted for respiratory failure, intubated, hemodynamically unstable, possible NV recently, on several antibiotic treatment , reviewed the recent imaging studies, spoke with the patient's family member, possibility of progression of the lung cancer mainly different tactic spread would be possible. Overall prognosis remains poor. Suggest comfort care would be appropriate and family members are in agreement. Dr. Tung Tinoco Hem/Onc (This note was completed using the dictation program Fluency Direct. As such, there may be misspellings, word substitutions, or other variations that should not change the essence of the clinical content of this encounter note. If there is need for further clarification, please direct questions to the provider listed above.)
--- NOTE | 2016-11-14 15:38 | PULMONARY PROGRESS NOTE ---
DATE: 11/14/2016 TIME: 03:00 p.m. SUBJECTIVE: The patient is being seen for a followup evaluation as requested by Dr. Cruz. He remains on mechanical ventilation. Yesterday, he became more unstable. The patient had some increase in heart rate with the development of atrial fib with rapid ventricular response of 144. He was found to have a right pneumothorax. A chest tube was inserted into the right side. This did result in reexpansion of the right lung. The patient is being sedated. He remains on mechanical ventilation as noted. His vital signs have been more stable. His oxygen saturations have improved somewhat. He is still on 80% oxygen. He is on PEEP at 15 cm. PHYSICAL EXAMINATION: GENERAL: The patient was sedated. He has an oral endotracheal tube in place as well as an orogastric tube. VITAL SIGNS: Heart rate is 96 per minute. Blood pressure is 112/49. LUNGS: Auscultation of the lung hill revealed fairly good breath sounds bilaterally. Just a few rales were heard bilaterally. There were no signs of subQ emphysema. Respiratory rate was 20 breaths per minute on the ventilator. ABDOMEN: Soft. Bowel sounds were diminished. EXTREMITIES: There was no significant edema noted peripherally. There was no cyanosis or clubbing. LABORATORY DATA: Electrolytes show sodium 140, potassium 3.6, chloride 105, and bicarb 23. BUN was 24 with a creatinine of 0.78. Blood sugar was 140. TB QuantiFERON was negative. White count today is 11.11. This is decreased from 18 from yesterday. Hemoglobin is 8.5. Platelets 171,000. The platelets dropped down from yesterday's level of 331,000. IMPRESSIONS: 1. Respiratory failure with hypoxia. 2. Bilateral lung infiltrates. Differential diagnosis includes pneumonia versus metastatic disease versus other infections. 3. Nonsmall cell carcinoma of the right upper lobe, stage T3 M3. 4. Urinary retention -- resolved with catheter. RECOMMENDATIONS: The patient's status remains critical. He is on vancomycin, Bactrim and Zosyn. He is getting feeding. He is getting pantoprazole. He is also getting levofloxacin. He has propofol and fentanyl and Haldol for sedation. He seems overall quite comfortable. I would recheck a chest x-ray for tomorrow and will also do an ABG tomorrow. The decrease in his white count hopefully is a positive. However, the drop in platelet count needs to be followed carefully as well. The patient weighs 50 kilograms reportedly. It would be feasible to give a lower tidal volume than what he has currently, which may lessen the risk of barotrauma somewhat. I will defer this to the burnisher and bumper. Likewise, if we can get his FiO2 down to 60% or less, it would then be advised to start to drop back on the PEEP in light of the pneumothorax, which has occurred. The patient's daughter was present. She was asking my opinion about everything. I told her my opinion is that since they made the decision 3 days ago to be aggressive with her father that I thought they should give him at least 5-7 days to see if he is going to respond to aggressive treatment. The patient's son will be arriving tomorrow to see his father as well.
[2016-11-14 15:57] LABS: BUN/CREATININE RATIO 31.1 (10-20); CALCIUM 8.3 mg/dl (8.5-10.1); CREATININE 0.92 mg/dl (0.60-1.40); MAGNESIUM 2.3 mg/dl (1.8-2.4); POTASSIUM 3.9 mmol/L (3.5-5.1)
[2016-11-14] MEDS: LEVOFLOXACIN 750MG / D5W IV SCH (16:19)
--- NOTE | 2016-11-14 16:20 | Progress Note ---
Subjective Date of Service: Nov 14, 2016. Subjective Pt evaluation today including: conversation w/ family, physical exam, lab review, review of studies, conversation w/ technology sales consultant, review of inpatient medication list Pain: sedated PO Intake: OG tube feeds Voiding: arzate catheter in place patient developed right sided pneumothorax last evening, CT placed by ICU developed atrial fibrillation, now in sinus tachycardia appreciate multiple technology sales consultant notes today from oncology, pulmonary and ICU sat with patient's daughter at the bedside, she is coming to terms with the fact that the patient is not recovering from acute illness patient's son coming into town tomorrow evening we established a deadline of Thursday to discuss the situation and make a decision on goals of care Problem List Medical Problems: (1) Anemia Status: Acute (2) Chronic subdural hematoma Status: Acute (3) Lung cancer Status: Acute Review of Systems cannot review due to sedation, intubation Medications Current Inpatient Medications Medications (Trade) Dose Ordered Sig/Cindy Route Start Time Stop Time Status Last Admin Dose Admin Acetaminophen (Tylenol Tab) 650 mg Q4H PRN PO 11/11/16 14:00 12/11/16 13:59 Ondansetron HCl (Zofran Inj) 4 mg Q6H PRN IV 11/11/16 14:00 12/11/16 13:59 11/12/16 10:56 4 MG Piperacillin Sod/ Tazobactam Sod (Consult) 1 ea UD PRN N/A 11/11/16 14:30 12/11/16 14:29 Vancomycin HCl 1 ea 1 ea UD PRN N/A 11/11/16 14:30 12/11/16 14:29 Piperacillin Sod/ Tazobactam Sod 3.375 gm/Dextrose 115 ml @ 28.75 mls/ hr Q8H IV 11/11/16 22:00 11/18/16 21:59 11/14/16 13:32 28.75 MLS/HR Levofloxacin/Prmx (Levaquin / D5W/ Premixed D5W) 150 ml @ 100 mls/hr DAILY@1700 IV 11/11/16 17:00 11/18/16 16:59 11/13/16 15:47 100 MLS/HR Insulin Aspart (novoLOG ASPART) SLIDING SCALE G... ACHS SC 11/11/16 16:15 12/11/16 16:14 11/11/16 18:26 5 UNITS Glucose (Glucose 40% Gel) 15-30 GRAMS 15 GRAMS... UD PRN PO 11/11/16 16:15 12/11/16 16:14 Glucose (Glucose Chew Tab) 4-8 Tablets 4 Tabl... UD PRN PO 11/11/16 16:15 12/11/16 16:14 Dextrose (Dextrose 50% 50ML Syringe) 25-50ML OF 50% DW IV FOR... UD PRN IV 11/11/16 16:15 12/11/16 16:14 Glucagon (Glucagon Inj) 1 mg UD PRN SQ 11/11/16 16:15 12/11/16 16:14 Miscellaneous Information 1 ea 1 ea UD N/A 11/11/16 19:09 12/11/16 19:08 Fentanyl Citrate (Fentanyl Drip 1250MCG/250 Nss) 250 ml @ 0 mls/hr Q0M PRN IV 11/11/16 22:45 11/25/16 22:44 11/14/16 07:14 30 MLS/HR Propofol 1 dose 1 dose UD PRN IV 11/11/16 22:45 11/14/16 22:44 11/14/16 14:04 1 DOSE Norepinephrine Bitartrate/ Dextrose (Levophed Inj/ D5W 500ml) 508 ml @ 0 mls/hr Q0M PRN IV 11/11/16 22:33 12/11/16 22:32 11/13/16 14:03 38 MLS/HR Chlorhexidine Gluconate (Peridex Oral Soln) 15 ml BID MT 11/12/16 09:00 12/12/16 08:59 11/14/16 09:25 15 ML Trimethoprim/ Sulfamethoxazole (Septra Ds 800/ 160MG Tab) 1 tab Q12 PO 11/12/16 09:00 11/19/16 08:59 11/14/16 09:24 1 TAB Ipratropium [place] (Atrovent Hfa Inhaler) 4 puffs QIDR INH 11/12/16 08:00 12/12/16 07:59 11/14/16 14:53 4 PUFFS Albuterol 4 puffs 4 puffs QIDR INH 11/12/16 08:00 12/12/16 07:59 11/14/16 14:53 4 PUFFS Pantoprazole Sodium/Syringe (Protonix Inj/ Syringe) 10 ml @ 5 mls/min DAILY@11 IV 11/12/16 11:00 12/12/16 10:59 11/14/16 10:17 5 MLS/MIN Fentanyl Citrate (Fentanyl Inj) 50 mcg Q3H PRN IV 11/12/16 10:00 11/26/16 09:59 11/13/16 18:11 50 MCG Multivitamins Therapeutic (Cerovite Liquid) 15 ml QAM PO 11/13/16 10:00 12/13/16 09:59 11/14/16 09:24 15 ML Docusate Sodium (coLACE SYRUP) 100 mg BID PO 11/13/16 21:00 12/13/16 20:59 11/14/16 09:24 100 MG Aspirin (Aspirin Chew) 81 mg DAILY NG 11/14/16 09:00 12/14/16 08:59 11/14/16 09:24 81 MG Enteral Nutritional Formula (Peptamen Intense VHP) 1,000 ml UD OG 11/13/16 15:30 12/13/16 15:29 11/14/16 13:34 1,000 ML Sterile Water 1 ea 1 ea Q4 NG 11/13/16 20:00 12/13/16 19:59 11/14/16 11:28 1 EA Diltiazem HCl 125 mg/Dextrose 125 ml @ 0 mls/hr Q0M PRN IV 11/13/16 22:30 12/13/16 22:29 11/14/16 14:01 5 MLS/HR Furosemide/Syringe (Lasix Inj/ Syringe) 4 ml @ 4 mls/min BID17 IV 11/14/16 09:00 12/14/16 08:59 11/14/16 09:25 4 MLS/MIN Haloperidol Lactate (Haldol Inj) 5 mg Q6H IV 11/14/16 10:00 12/14/16 09:59 11/14/16 10:16 5 MG Heparin Sodium (Porcine) 5000 unit 5,000 unit Q12 SQ 11/14/16 21:00 12/14/16 20:59 Vancomycin HCl/ Sodium Chloride (Vancomycin Inj/ Nss 250ml) 265 ml @ 125 mls/hr Q10H IV 11/14/16 18:00 11/17/16 23:59 Objective Vital Signs Date Time Temp Pulse Resp B/P Pulse Ox O2 Delivery O2 Flow Rate FiO2 11/14/16 14:00 96 20 112/49 93 93/59 11/14/16 14:00 80 11/14/16 13:45 97 22 115/50 92 11/14/16 13:30 97 21 110/51 92 11/14/16 13:15 98 15 108/50 93 11/14/16 13:00 99 20 112/49 93 92/52 11/14/16 12:45 96 22 115/49 93 11/14/16 12:30 97 21 111/51 92 11/14/16 12:15 98 21 106/49 92 11/14/16 12:00 96 15 112/49 93 104/48 11/14/16 11:32 80 11/14/16 11:20 36.8 99 20 108/49 91 Mechanical Ventilator 80 95/53 11/14/16 11:15 90 11/14/16 11:15 Mechanical Ventilator 80 11/14/16 11:00 96 18 109/50 92 101/52 11/14/16 10:45 100 18 107/49 91 95/53 11/14/16 10:30 97 25 117/52 91 11/14/16 10:15 95 20 113/53 90 11/14/16 10:00 95 17 122/54 91 103/59 11/14/16 09:45 93 17 121/55 92 11/14/16 09:34 92 21 113/52 92 103/51 11/14/16 09:30 36.7 94 20 118/53 97 Mechanical Ventilator 50.0 100 103/59 11/14/16 09:30 92 17 117/32 92 11/14/16 09:15 94 15 111/52 91 11/14/16 09:00 93 18 114/51 90 94/54 11/14/16 08:45 93 20 109/52 90 11/14/16 08:30 94 21 105/49 90 11/14/16 08:15 95 17 111/50 91 11/14/16 08:05 80 11/14/16 08:00 Mechanical Ventilator 80 11/14/16 08:00 96 20 115/51 93 101/50 11/14/16 07:45 91 23 108/49 97 11/14/16 07:40 100 11/14/16 07:32 91 21 101/50 97 96/49 11/14/16 07:30 Mechanical Ventilator 80 11/14/16 07:30 36.7 94 20 94/48 97 Mechanical Ventilator 50.0 100 97/50 11/14/16 07:30 90 19 103/50 97 11/14/16 07:30 90 11/14/16 07:15 88 18 96/47 97 11/14/16 07:00 89 16 100/52 97 94/48 11/14/16 06:15 90 20 101/56 97 11/14/16 06:00 87 21 101/54 97 11/14/16 05:45 89 20 95/55 96 11/14/16 05:30 93 22 97/55 96 11/14/16 05:15 91 18 98/57 95 11/14/16 05:00 95 19 99/50 96 11/14/16 04:45 96 18 102/59 95 11/14/16 04:30 94 17 104/57 96 11/14/16 04:15 96 22 106/54 95 11/14/16 04:00 100 11/14/16 04:00 37.1 92 25 111/56 96 11/14/16 04:00 Mechanical Ventilator 100 11/14/16 03:45 96 18 122/61 97 11/14/16 03:30 92 17 112/62 96 11/14/16 03:15 90 18 116/60 96 11/14/16 03:05 90 11/14/16 03:00 91 17 110/62 97 11/14/16 02:45 80 19 103/56 98 11/14/16 02:30 79 16 100/53 98 11/14/16 02:15 82 17 97/51 98 11/14/16 02:00 87 17 100/55 98 11/14/16 01:45 85 16 106/55 98 11/14/16 01:40 88 16 99/56 98 11/14/16 01:30 92 16 114/54 98 11/14/16 01:15 101 24 133/66 99 11/14/16 01:10 99 22 111/68 98 11/14/16 01:00 109 25 115/77 94 11/14/16 00:50 92 18 96/55 96 11/14/16 00:45 104 23 94/53 81 11/14/16 00:30 98 20 89/59 92 11/14/16 00:20 104 20 75/55 92 11/14/16 00:10 111 14 84/53 91 11/14/16 00:00 37.2 114 25 113/76 91 11/14/16 00:00 Mechanical Ventilator 100 11/14/16 00:00 100 11/13/16 23:50 120 26 104/59 91 11/13/16 23:40 119 24 107/65 92 11/13/16 23:30 115 21 92/62 91 11/13/16 23:20 115 23 96/66 92 11/13/16 23:10 116 22 117/65 91 11/13/16 23:00 37.0 126 24 117/64 90 11/13/16 22:50 90 11/13/16 22:50 135 23 99/76 91 11/13/16 22:30 112 17 93/65 90 11/13/16 22:20 128 18 107/59 91 11/13/16 22:00 126 16 98/66 94 11/13/16 21:30 128 16 124/88 94 11/13/16 21:20 133 18 94/76 93 11/13/16 21:00 136 19 86/60 93 11/13/16 20:50 132 25 107/63 92 11/13/16 20:30 140 27 84/63 89 11/13/16 20:00 80 11/13/16 20:00 37.0 129 24 127/85 90 11/13/16 20:00 Mechanical Ventilator 90 11/13/16 19:45 60 11/13/16 19:30 126 22 97/69 91 11/13/16 19:15 126 18 102/51 90 11/13/16 19:00 124 20 97/79 90 11/13/16 18:30 132 23 103/62 89 Mechanical Ventilator 11/13/16 18:15 132 19 80/57 92 11/13/16 18:00 134 29 129/83 94 11/13/16 17:45 134 20 115/72 93 11/13/16 17:30 127 22 115/80 91 11/13/16 17:15 127 15 125/72 91 11/13/16 17:00 128 20 117/81 90 11/13/16 16:45 127 20 100/60 91 11/13/16 16:39 60 11/13/16 16:30 125 20 88/60 91 11/13/16 16:15 122 25 112/74 91 Physical Exam General Appearance: no apparent distress (sedated), + thin Neck: supple, no adenopathy, no JVD Respiratory/Chest: + accessory muscle use, + rales, + pertinent finding (right chest tube in place) Cardiovascular: no edema, no gallop, no JVD, no murmur, + tachycardia Abdomen: normal bowel sounds, non tender, soft, no organomegaly Extremities: non-tender, normal inspection, no pedal edema, no calf tenderness , normal capillary refill, pelvis stable Neurologic/Psychiatric: + pertinent finding (sedated, moving extremities spontaneously) Skin: normal color, warm/dry, no rash Laboratory Results Last 24 Hours Test 11/13/16 20:47 11/13/16 22:16 11/13/16 22:49 11/14/16 06:28 Sodium Level 139 mmol/L Potassium Level 2.7 mmol/L Chloride Level 102 mmol/L Carbon Dioxide Level 25 mmol/L Anion Gap 12.0 mmol/L Blood Urea Nitrogen 26 mg/dl Creatinine 0.90 mg/dl Est Creatinine Clear Calc Drug Dose 51.9 ml/min Estimated GFR () 97.2 Estimated GFR (Non- 83.8 BUN/Creatinine Ratio 29.0 Random Glucose 161 mg/dl Calcium Level 8.1 mg/dl Phosphorus Level 3.4 mg/dl Magnesium Level 1.8 mg/dl Bedside Glucose (other) 167 mg/dl Blood Gas Sample Site Art Line Bedside Blood Gas pH (LAB) 7.45 Bedside Blood Gas pCO2 (LAB) 37 mmHg Bedside Blood Gas pO2 (LAB) 58 mmHg Bedside Blood Gas HCO3 (LAB) 26 meq/L Bedside Blood Gas Total CO2 27 mEq/l Bedside Blood Gas Base Excess (LAB) 2.0 meq/L Bedside Blood Gas O2 Saturation 91.0 % James Test NA Oxygen Delivery Device Ventilator Bedside Oxygen Rate (breaths/min) 25 Blood Gas Minute Ventilation 16.9 Bedside FiO2 90 % Blood Gas Tidal Volume 450 Blood Gas PEEP 13 Bedside Glucose 120 mg/dl Test 11/14/16 07:35 11/14/16 09:49 11/14/16 10:52 11/14/16 15:15 White Blood Count 11.11 K/uL Red Blood Count 2.98 M/uL Hemoglobin 8.5 g/dL 8.5 g/dL Hematocrit 25.4 % 25.9 % Mean Corpuscular Volume 85.2 fL Mean Corpuscular Hemoglobin 28.5 pg Mean Corpuscular Hemoglobin Concent 33.5 g/dl Platelet Count 171 K/uL Mean Platelet Volume 8.0 fL Neutrophils (%) (Auto) 94.9 % Lymphocytes (%) (Auto) 1.5 % Monocytes (%) (Auto) 1.2 % Eosinophils (%) (Auto) 1.4 % Basophils (%) (Auto) 0.1 % Neutrophils # (Auto) 10.55 K/uL Lymphocytes # (Auto) 0.17 K/uL Monocytes # (Auto) 0.13 K/uL Eosinophils # (Auto) 0.15 K/uL Basophils # (Auto) 0.01 K/uL RDW Standard Deviation 55.5 fL RDW Coefficient of Variation 17.7 % Immature Granulocyte % (Auto) 0.9 % Immature Granulocyte # (Auto) 0.10 K/uL Red Blood Cell Morphology Unremarkable Sodium Level 140 mmol/L 140 mmol/L Potassium Level 3.6 mmol/L 3.9 mmol/L Chloride Level 105 mmol/L 105 mmol/L Carbon Dioxide Level 23 mmol/L 24 mmol/L Anion Gap 12.0 mmol/L 11.0 mmol/L Blood Urea Nitrogen 24 mg/dl 29 mg/dl Creatinine 0.78 mg/dl 0.92 mg/dl Est Creatinine Clear Calc Drug Dose 58.8 ml/min 49.8 ml/min Estimated GFR () 103.1 94.6 Estimated GFR (Non- 88.9 81.6 BUN/Creatinine Ratio 30.5 31.1 Random Glucose 118 mg/dl 139 mg/dl Calcium Level 8.3 mg/dl 8.3 mg/dl Phosphorus Level 3.0 mg/dl Magnesium Level 2.4 mg/dl 2.3 mg/dl Vancomycin Level Trough 22.0 mcg/ml Bedside Glucose 140 mg/dl Assessment and Plan 76 yo male with stage IIIb right sided adenocarcinoma s/p chemo and radiation who presents with bilateral pneumonia and acute respiratory failure. Shortly after admission his respiratory status declined and he was transferred to ICU and later intubated due to severe hypoxia despite high FiO2. - Acute hypoxic respiratory failure, ARDS: mechanical ventilation, intubated on 11/11 at night management per ICU sedation with Propofol and PRN fentanyl, continue Haldol to try to wean back Propofol continue Lasix PRN for diuresis and keeping lungs dry unfortunately he is not improving, requiring high PEEP of 15, high FiO2 discussed with daughter that he is not doing well and doubtful for recovery - Bilateral pneumonia, HCAP since he failed outpatient antibiotics and is cancer patient Vancomycin, Zosyn and Levaquin day 4, will continue these, appreciate ID consult legionella antigen not detected, bronchial lavage cultures sent (no growth), Quantiferon gold negative no mucous plugging or increased secretions seen with bronchoscopy? at this point it seems like pneumonia less likely, however, will continue antibiotics for at least 5 days - hypotension due to sedation, not considered septic shock at this point: weaned off of Levophed reduced Hydrocortisone dose to 25mg q8 try to wean off of Propofol - Right pneumothorax: treated with chest tube, management per ICU - Demand ischemia vs NSTEMI: troponin mike to 3.2, trending down, no EKG changes , never had chest pain echo with reduced EF of 40%, global hypokinesis, no significant valve disease start Aspirin 81mg, will try to start beta sammy once off of Levophed - Anemia: dropped from admission but now stable, no overt signs of bleeding, continue to monitor - Stage IIIb lung adenocarcinoma: completed chemo and radiation appreciate consult, Dr. Tinoco to see patient later - DVT prophylaxis: Lovenox - GI prophylaxis: Protonix IV, tube feeds Updated family at the bedside Discussed DNR status if his heart would stop, they are discussing what the patient would want done, for now continue level 1 more family coming into town tomorrow set a deadline for Thursday to decide about level of care and goals of care if he still is not showing signs of progression
[2016-11-14] MEDS: VANCOMYCIN INJ 750 MG in SODIUM CHLORIDE 0.9% 250ML 250 ML IV SCH (18:58)
[2016-11-14] MEDS ORDERED: POTASSIUM CHLORIDE 20 MEQ/15 ML UDC PO STA (19:17)
[2016-11-14] MEDS: HEPARIN SOD 5000 UNIT/0.5 ML CARP SQ SCH (21:28)
[2016-11-15] VITALS (31 sets, daily range): BP systolic 76–135; BP diastolic 34–68; PULSE 88–128; TEMP 36.3–36.7; O2SAT 90–97
[2016-11-15] MEDS ORDERED: PROPOFOL IV EMULSION 10 MG/ML 100 ML VIAL IV ONE (00:39)
[2016-11-15] MEDS ORDERED: NURSING VERBAL MED ORDER ONE ×2 (01:00→12:30)
[2016-11-15] MEDS: FENTANYL 1250MCG/250ML NSS 250 ML IV PRN ×3 (01:27→21:56)
[2016-11-15] MEDS: HALOPERIDOL LACTATE 5 MG/ML 1 ML VIAL IV SCH ×4 (03:03→22:53)
[2016-11-15] MEDS: VANCOMYCIN INJ 750 MG in SODIUM CHLORIDE 0.9% 250ML 250 ML IV SCH (03:45)
[2016-11-15] MEDS: TUBE FEEDING WATER FLUSH NG SCH ×6 (04:26→21:10)
[2016-11-15 06:08] LABS: EOS % 3.8 %; HEMATOCRIT 28.1 % (42-52); IG% 0.8 %; LYMPH % 1.3 %; LYMPH ABS # 0.16 K/uL (1.2-3.4); MEAN CELL VOLUME 88.6 fL (80-100); MEAN CORPUSCULAR HEMOGLOBIN 27.1 pg (25-34); MEAN CORPUSCULAR HGB CONC 30.6 g/dl (32-36); MONO % 1.1 %; PLATELET COUNT 152 K/uL (130-400); RED BLOOD COUNT 3.17 M/uL (4.7-6.1); WHITE BLOOD COUNT 12.15 K/uL (4.8-10.8)
[2016-11-15] MEDS: PIPERACILL/TAZOBAC IV 3.375 GM in DEXTROSE 5% 100ML IV SCH ×3 (06:13→21:51)
[2016-11-15 06:35] LABS: BUN/CREATININE RATIO 36.1 (10-20); CALCIUM 8.1 mg/dl (8.5-10.1); CREATININE 1.1 mg/dl (0.60-1.40); MAGNESIUM 2.2 mg/dl (1.8-2.4); POTASSIUM 4.2 mmol/L (3.5-5.1)
[2016-11-15 06:38] LABS: ALB/GLOB RATIO 0.3 (0.9-2); PHOSPHORUS 3.3 mg/dl (2.5-4.9)
[2016-11-15 06:42] LABS: ANISOCYTOSIS PRESENT; COMPLETE YES
--- NOTE | 2016-11-15 07:10 | DIAGNOSTIC IMAGING REPORT ---
CHEST ONE VIEW PORTABLE CLINICAL HISTORY: Lung carcinoma, respiratory failure. COMPARISON STUDY: 11/14/2016 FINDINGS: The cardiac and mediastinal contours remain stable. There is a nasogastric tube within the stomach. There is a right internal jugular intravenous catheter unchanged the prior study. There is an endotracheal tube 22 mm above the yuliana. There is a right-sided chest tube present. There are extensive bilateral pulmonary airspace opacities left greater than right. Since the prior study, the patient developed extensive subcutaneous emphysema left greater than right. No pneumothorax is visualized.[ IMPRESSION: Interval development of extensive subcutaneous emphysema. No pneumothorax is visualized. Persistent extensive bilateral airspace opacities Electronically signed by: Lam Graf M.D. 11/15/2016 7:08 AM Dictated Date/Time: 11/15/2016 7:06 AM
[2016-11-15] MEDS: INSULIN ASPART 100 UNITS/ML 3 ML PEN SC SCH ×4 (07:29→21:50)
[2016-11-15] MEDS: ALBUTEROL HFA 8 GM INHALER INH SCH ×4 (08:20→20:13)
[2016-11-15] MEDS: IPRATROPIUM BROMIDE HFA INHALER INH SCH ×4 (08:20→20:13)
[2016-11-15] MEDS: FUROSEMIDE INJ 80 MG in SYRINGE 0 ML IV SCH ×2 (08:46→16:25)
[2016-11-15] MEDS: CHLORHEXIDINE GLUCONATE 0.12% 480 ML MT SCH ×2 (08:46→21:15)
[2016-11-15] MEDS: HEPARIN SOD 5000 UNIT/0.5 ML CARP SQ SCH ×2 (08:47→21:16)
[2016-11-15] MEDS: SULFAMETHOXAZOLE/TRIMETHOPRIM DS 800/160MG TAB PO SCH ×2 (08:47→21:14)
[2016-11-15] MEDS: DOCUSATE SODIUM 100 MG/10 ML UDC PO SCH ×2 (08:47→21:15)
[2016-11-15] MEDS: ASPIRIN 81 MG CHEW NG SCH (08:48)
[2016-11-15] MEDS: MULTIVITAMINS W/MINERALS 15ML UDP PO SCH (08:48)
[2016-11-15] MEDS: PROPOFOL IV EMULSION 10 MG/ML 100 ML VIAL IV PRN ×2 (08:50→16:26)
[2016-11-15] MEDS: PANTOprazole INJ 40 MG in SYRINGE 0 ML IV SCH (10:23)
--- NOTE | 2016-11-15 10:47 | CRITICAL CARE PROGRESS NOTE ---
DATE: 11/15/2016 DATE: 11/15/2016. SUBJECTIVE: The patient has developed subcutaneous emphysema overnight. There is no definite pneumothorax on his chest x-ray and an arterial blood gas this morning shows that he has a pCO2 of 80 and a pH of 7.09. These were on adjusted ventilator settings compared to yesterday to try to decrease his airway pressures. His plateau pressures had been 28. He is not having any significant endotracheal tube secretions and remains on propofol and fentanyl with scheduled Haldol. His care was discussed in detail with his bedside nurse, Anabella. He had a high tube feed residual last night, so they were stopped and they restarted this morning at 30 mL per hour. He has not had a bowel movement. PHYSICAL EXAMINATION: VITAL SIGNS: Maximum temperature 36.8, heart rate 90-108, respiratory rate 19-23, blood pressure 92-103/50s, oxygen saturation 94%. Ventilator settings assist control rate 24, tidal volume 400, FiO2 100%, PEEP of 15. NEUROLOGIC: He is unresponsive to painful stimuli. Difficult to see his pupils secondary to his cataracts. LUNGS: Have very decreased breath sounds throughout and some bibasilar rales. HEART: Regular rate and rhythm. ABDOMEN: Moderately distended, soft, hypoactive bowel sounds. EXTREMITIES: With 2+ edema of the hands and trace edema of the feet. LABORATORY DATA: White blood cell count 12.15, hemoglobin 8.6, hematocrit 28.1, platelets 152. Sodium 141, potassium 4.2, chloride 107, CO2 25, BUN 40, creatinine 1.10, glucose 107, calcium 8.1, AST 12, total protein 5.9, albumin 1.3, globulin 4.6. Portable chest x-ray from this morning was reviewed and shows subcutaneous emphysema and persistent extensive bilateral airspace opacities. MEDICATIONS: Acetaminophen, albuterol, aspirin, chlorhexidine, diltiazem, Colace, Peptamen, fentanyl, Lasix, Haldol, heparin, Atrovent, insulin sliding scale, Levaquin day 5, multivitamin, norepinephrine, Zofran, Protonix, Zosyn day 4, vancomycin day 5, Bactrim day 4. Culture data was reviewed. It is still unrevealing IMPRESSION: 1. Acute hypoxemic respiratory failure and acute respiratory distress syndrome. No change in his chest x-ray now with subcutaneous emphysema and no definite pneumothorax on chest x-ray. He is too ill to send for a CT scan of the chest. 2. Nonsmall cell carcinoma, [id number], status post chemotherapy and radiation therapy. 3. Spontaneous right pneumothorax status post chest tube on 11/14/2016. 4. Hypotension, improved. 5. New onset atrial fibrillation with rapid ventricular response, resolved. 6. Protein calorie malnutrition. 7. Status post non-ST segment elevation myocardial infarction, ejection fraction 40%. 8. Anemia, stable. PLAN: NEUROLOGIC: Continue Haldol, fentanyl and propofol. PULMONARY: I tried to decrease his plateau pressures further by decreasing his tidal volume and increasing his respiratory rate, however he was quite acidotic on that arterial blood gas. I have increased the rate and tidal volume and will check an arterial blood gas later today. Continue antibiotics. Continue chest tube to wall suction. CARDIOVASCULAR: His blood pressure is a little bit soft today. I suspect he may require some norepinephrine, although it has been off since early yesterday morning. This may be related to his acidosis. INFECTIOUS DISEASE: Family would like to continue antibiotics for at least 5 days. There is no additional culture data to help determine the etiology of his respiratory decompensation. GASTROINTESTINAL: Tube feeds have been resumed. I will add Dulcolax suppository for constipation. Continue GI prophylaxis. RENAL: Creatinine is creeping up just a little bit. Lasix was increased to 80 mg b.i.d. He has had persistently positive I's and O's. HEMATOLOGY/ONCOLOGY: Many thanks to the oncology service for their consultation yesterday. Continue heparin subcutaneously b.i.d. ENDOCRINE: Continue sliding scale insulin. He is now off hydrocortisone. I had a discussion with the patient's family today including his daughter, and son-in-law. I showed them the progression in his radiographs from June of last year until today. The patient's son is arriving from [place] sometime today and I anticipate they may opt to change the goals of care to comfort tomorrow. Unfortunately, this man really has not made any progress over the past 4 days despite antibiotics and supportive care. Questions were answered and support was provided. Critical care time 1 hour. [facility]
[2016-11-15] MEDS: NOREPINEPHRINE BIT INJ 8 MG in DEXTROSE 5% 500ML 500 ML IV PRN (11:02)
[2016-11-15] MEDS ORDERED: DILTIAZEM HCL 5 MG/ML 5 ML VIAL ONE (12:07)
[2016-11-15] MEDS ORDERED: SENNA 8.8 MG/5 ML UDP PO ONE (12:30)
--- NOTE | 2016-11-15 12:39 | Progress Note ---
Subjective Date of Service: Nov 15, 2016. Subjective Pt evaluation today including: conversation w/ family, physical exam, lab review, review of studies, conversation w/ lifestyle consultant, review of inpatient medication list Pain: sedated PO Intake: OG tube feeds Voiding: arzate catheter in place overnight he developed subcutaneous emphysema on right side blood gas this AM showing hypercapnia, respiratory acidosis no improvement on ventilator, high PEEP and 100% FiO2 requirements discussed with daughter at the bedside that he is not improving at all and at this point do not expect him to recover patient's son arriving this afternoon Problem List Medical Problems: (1) Anemia Status: Acute (2) Chronic subdural hematoma Status: Acute (3) Lung cancer Status: Acute Review of Systems cannot review, sedated, comfortable Medications Current Inpatient Medications Medications (Trade) Dose Ordered Sig/Cindy Route Start Time Stop Time Status Last Admin Dose Admin Acetaminophen (Tylenol Tab) 650 mg Q4H PRN PO 11/11/16 14:00 12/11/16 13:59 Ondansetron HCl (Zofran Inj) 4 mg Q6H PRN IV 11/11/16 14:00 12/11/16 13:59 11/12/16 10:56 4 MG Piperacillin Sod/ Tazobactam Sod (Consult) 1 ea UD PRN N/A 11/11/16 14:30 12/11/16 14:29 Vancomycin HCl 1 ea 1 ea UD PRN N/A 11/11/16 14:30 12/11/16 14:29 Piperacillin Sod/ Tazobactam Sod 3.375 gm/Dextrose 115 ml @ 28.75 mls/ hr Q8H IV 11/11/16 22:00 11/18/16 21:59 11/15/16 06:13 28.75 MLS/HR Levofloxacin/Prmx (Levaquin / D5W/ Premixed D5W) 150 ml @ 100 mls/hr DAILY@1700 IV 11/11/16 17:00 11/18/16 16:59 11/14/16 16:19 100 MLS/HR Insulin Aspart (novoLOG ASPART) SLIDING SCALE G... ACHS SC 11/11/16 16:15 12/11/16 16:14 11/11/16 18:26 5 UNITS Glucose (Glucose 40% Gel) 15-30 GRAMS 15 GRAMS... UD PRN PO 11/11/16 16:15 12/11/16 16:14 Glucose (Glucose Chew Tab) 4-8 Tablets 4 Tabl... UD PRN PO 11/11/16 16:15 12/11/16 16:14 Dextrose (Dextrose 50% 50ML Syringe) 25-50ML OF 50% DW IV FOR... UD PRN IV 11/11/16 16:15 12/11/16 16:14 Glucagon (Glucagon Inj) 1 mg UD PRN SQ 11/11/16 16:15 12/11/16 16:14 Miscellaneous Information 1 ea 1 ea UD N/A 11/11/16 19:09 12/11/16 19:08 Fentanyl Citrate 250 ml @ 0 mls/hr Q0M PRN IV 11/11/16 22:45 11/25/16 22:44 11/15/16 10:34 20 MLS/HR Norepinephrine Bitartrate/ Dextrose (Levophed Inj/ D5W 500ml) 508 ml @ 0 mls/hr Q0M PRN IV 11/11/16 22:33 12/11/16 22:32 11/15/16 11:02 19.1 MLS/HR Chlorhexidine Gluconate (Peridex Oral Soln) 15 ml BID MT 11/12/16 09:00 12/12/16 08:59 11/15/16 08:46 15 ML Trimethoprim/ Sulfamethoxazole (Septra Ds 800/ 160MG Tab) 1 tab Q12 PO 11/12/16 09:00 11/19/16 08:59 11/15/16 08:47 1 TAB Ipratropium Brimley (Atrovent Hfa Inhaler) 4 puffs QIDR INH 11/12/16 08:00 12/12/16 07:59 11/15/16 11:15 4 PUFFS Albuterol 4 puffs 4 puffs QIDR INH 11/12/16 08:00 12/12/16 07:59 11/15/16 11:15 4 PUFFS Pantoprazole Sodium/Syringe (Protonix Inj/ Syringe) 10 ml @ 5 mls/min DAILY@11 IV 11/12/16 11:00 12/12/16 10:59 11/15/16 10:23 5 MLS/MIN Fentanyl Citrate (Fentanyl Inj) 50 mcg Q3H PRN IV 11/12/16 10:00 11/26/16 09:59 11/13/16 18:11 50 MCG Multivitamins Therapeutic (Cerovite Liquid) 15 ml QAM PO 11/13/16 10:00 12/13/16 09:59 11/15/16 08:48 15 ML Docusate Sodium (coLACE SYRUP) 100 mg BID PO 11/13/16 21:00 12/13/16 20:59 11/15/16 08:47 100 MG Aspirin (Aspirin Chew) 81 mg DAILY NG 11/14/16 09:00 12/14/16 08:59 11/15/16 08:48 81 MG Enteral Nutritional Formula (Peptamen Intense VHP) 1,000 ml UD OG 11/13/16 15:30 12/13/16 15:29 11/14/16 13:34 1,000 ML Sterile Water 1 ea 1 ea Q4 NG 11/13/16 20:00 12/13/16 19:59 11/15/16 10:38 1 EA Diltiazem HCl/ Dextrose (Cardizem Inj/D5 100ml) 125 ml @ 0 mls/hr Q0M PRN IV 11/13/16 22:30 12/13/16 22:29 11/14/16 14:01 5 MLS/HR Haloperidol Lactate (Haldol Inj) 5 mg Q6H IV 11/14/16 10:00 12/14/16 09:59 11/15/16 10:23 5 MG Heparin Sodium (Porcine) 5000 unit 5,000 unit Q12 SQ 11/14/16 21:00 12/14/16 20:59 11/15/16 08:47 5,000 UNIT Vancomycin HCl/ Sodium Chloride (Vancomycin Inj/ Nss 250ml) 265 ml @ 125 mls/hr Q10H IV 11/14/16 18:00 11/17/16 23:59 11/15/16 03:45 125 MLS/HR Propofol 1 dose 1 dose UD PRN IV 11/15/16 01:45 11/18/16 01:44 11/15/16 08:50 1 DOSE Furosemide/Syringe (Lasix Inj/ Syringe) 8 ml @ 4 mls/min BID17 IV 11/15/16 09:00 12/15/16 08:59 11/15/16 08:46 4 MLS/MIN Objective Vital Signs Date Time Temp Pulse Resp B/P Pulse Ox O2 Delivery O2 Flow Rate FiO2 11/15/16 11:15 100 11/15/16 10:04 94 26 93/46 97 Mechanical Ventilator 100 11/15/16 10:00 93 26 96/46 96 Mechanical Ventilator 100 11/15/16 09:35 100 11/15/16 08:20 100 11/15/16 08:06 92 20 100/43 95 Mechanical Ventilator 100 11/15/16 08:00 36.6 91 20 76/45 94 Mechanical Ventilator 100 11/15/16 08:00 100 11/15/16 08:00 Mechanical Ventilator 100 11/15/16 07:00 91 20 92/46 94 Mechanical Ventilator 100 100/43 11/15/16 05:40 100 11/15/16 04:26 93 Mechanical Ventilator 80 11/15/16 04:26 80 11/15/16 04:00 97 23 93/49 94 Mechanical Ventilator 100 11/15/16 03:00 108 23 135/68 90 Mechanical Ventilator 100 11/15/16 02:05 100 11/15/16 02:00 102 19 116/57 92 Mechanical Ventilator 100 11/15/16 01:00 92 16 97/51 92 Mechanical Ventilator 100 11/15/16 00:34 80 11/15/16 00:34 93 Mechanical Ventilator 80 11/15/16 00:00 90 21 92/48 93 Mechanical Ventilator 80 11/14/16 23:23 80 11/14/16 23:00 87 20 95/52 95 Mechanical Ventilator 80 11/14/16 22:00 36.8 96 21 103/54 91 Mechanical Ventilator 80 11/14/16 21:00 88 20 93/52 96 Mechanical Ventilator 80 11/14/16 20:20 93 Mechanical Ventilator 80 11/14/16 20:20 80 11/14/16 20:05 80 11/14/16 20:00 88 20 95/53 97 Mechanical Ventilator 80 11/14/16 19:00 92 20 95/51 96 Mechanical Ventilator 80 11/14/16 18:00 93 20 107/48 95 Mechanical Ventilator 80 11/14/16 17:32 80 11/14/16 17:00 97 20 92/54 94 11/14/16 16:08 93 Mechanical Ventilator 80 11/14/16 16:08 80 11/14/16 16:00 35.6 97 20 98/53 94 Mechanical Ventilator 80 11/14/16 15:00 95 20 96/53 94 11/14/16 14:00 96 20 112/49 93 93/59 11/14/16 14:00 80 11/14/16 13:45 97 22 115/50 92 11/14/16 13:30 97 21 110/51 92 11/14/16 13:15 98 15 108/50 93 11/14/16 13:00 99 20 112/49 93 92/52 11/14/16 12:45 96 22 115/49 93 11/14/16 12:30 97 21 111/51 92 Physical Exam General Appearance: no apparent distress, + thin ENT: normal ENT inspection, hearing grossly normal, pharynx normal Neck: supple, no adenopathy, no JVD Respiratory/Chest: chest non-tender, no respiratory distress, no accessory muscle use, + decreased breath sounds, + rales Cardiovascular: no edema, no gallop, no JVD, no murmur, + tachycardia Abdomen: normal bowel sounds, non tender, soft, no organomegaly Neurologic/Psychiatric: + pertinent finding (sedated, agitated when sedation turned back, moving limbs spontaneously) Skin: normal color, warm/dry, no rash Laboratory Results Last 24 Hours Test 11/14/16 15:15 11/14/16 16:15 11/15/16 05:45 11/15/16 10:36 Sodium Level 140 mmol/L 141 mmol/L Potassium Level 3.9 mmol/L 4.2 mmol/L Chloride Level 105 mmol/L 107 mmol/L Carbon Dioxide Level 24 mmol/L 25 mmol/L Anion Gap 11.0 mmol/L 9.0 mmol/L Blood Urea Nitrogen 29 mg/dl 40 mg/dl Creatinine 0.92 mg/dl 1.10 mg/dl Est Creatinine Clear Calc Drug Dose 49.8 ml/min 41.7 ml/min Estimated GFR () 94.6 76.2 Estimated GFR (Non- 81.6 65.8 BUN/Creatinine Ratio 31.1 36.1 Random Glucose 139 mg/dl 107 mg/dl Calcium Level 8.3 mg/dl 8.1 mg/dl Magnesium Level 2.3 mg/dl 2.2 mg/dl Bedside Glucose 153 mg/dl 110 mg/dl White Blood Count 12.15 K/uL Red Blood Count 3.17 M/uL Hemoglobin 8.6 g/dL Hematocrit 28.1 % Mean Corpuscular Volume 88.6 fL Mean Corpuscular Hemoglobin 27.1 pg Mean Corpuscular Hemoglobin Concent 30.6 g/dl Platelet Count 152 K/uL Mean Platelet Volume 9.0 fL Neutrophils (%) (Auto) 93.0 % Lymphocytes (%) (Auto) 1.3 % Monocytes (%) (Auto) 1.1 % Eosinophils (%) (Auto) 3.8 % Basophils (%) (Auto) 0.0 % Neutrophils # (Auto) 11.30 K/uL Lymphocytes # (Auto) 0.16 K/uL Monocytes # (Auto) 0.13 K/uL Eosinophils # (Auto) 0.46 K/uL Basophils # (Auto) 0.00 K/uL RDW Standard Deviation 57.9 fL RDW Coefficient of Variation 17.8 % Immature Granulocyte % (Auto) 0.8 % Immature Granulocyte # (Auto) 0.10 K/uL Basophilic Stippling 1+ Anisocytosis PRESENT Phosphorus Level 3.3 mg/dl Total Bilirubin 0.3 mg/dl Aspartate Amino Transf (AST/SGOT) 12 U/L Alanine Aminotransferase (ALT/SGPT) 12 U/L Alkaline Phosphatase 76 U/L Total Protein 5.9 gm/dl Albumin 1.3 gm/dl Globulin 4.6 gm/dl Albumin/Globulin Ratio 0.3 Assessment and Plan 76 yo male with stage IIIb right sided adenocarcinoma s/p chemo and radiation who presents with bilateral pneumonia and acute respiratory failure. Shortly after admission his respiratory status declined and he was transferred to ICU and later intubated due to severe hypoxia despite high FiO2. - Acute hypoxic respiratory failure, ARDS: mechanical ventilation, intubated on 11/11 at night management per ICU sedation with Propofol and PRN fentanyl, continue Haldol to try to wean back Propofol continue Lasix PRN for diuresis and keeping lungs dry unfortunately he is not improving, requiring high PEEP of 15, high FiO2 of 100% ABG today shows hypercapnia, respiratory acidosis so under ventilating but difficult because cannot increase tidal volumes discussed with daughter that he is not doing well and doubtful for recovery, need to make a decision on goals of care soon - Bilateral pneumonia, HCAP since he failed outpatient antibiotics and is cancer patient Vancomycin, Zosyn and Levaquin day 5, will continue these, appreciate ID consult legionella antigen not detected, bronchial lavage cultures sent (no growth), Quantiferon gold negative no mucous plugging or increased secretions seen with bronchoscopy? at this point it seems like pneumonia less likely, however, will continue antibiotics for at least 5 days which would be end of day today - hypotension due to sedation, not considered septic shock at this point: weaned off of Levophed reduced Hydrocortisone dose to 25mg q8 try to wean off of Propofol had to resume Levophed today - Right pneumothorax: treated with chest tube, management per ICU, now with subcutaneous emphysema - Demand ischemia vs NSTEMI: troponin mike to 3.2, trending down, no EKG changes , never had chest pain echo with reduced EF of 40%, global hypokinesis, no significant valve disease start Aspirin 81mg, will try to start beta sammy once off of Levophed - Anemia: dropped from admission but now stable, no overt signs of bleeding, continue to monitor - Stage IIIb lung adenocarcinoma: completed chemo and radiation appreciate consult, approach would be palliative since he did not respond very well to chemotherapy and radiation - DVT prophylaxis: Lovenox - GI prophylaxis: Protonix IV, tube feeds Updated family at the bedside Discussed DNR status if his heart would stop, they are discussing what the patient would want done, for now continue level 1 more family coming into town today, explained that lungs are not improving, need to discuss goals of care
[2016-11-15] MEDS ORDERED: BISACODYL 10 MG SUPP PR PRN (12:45)
[2016-11-15] MEDS ORDERED: VANCOMYCIN TROUGH SCH (13:30)
--- NOTE | 2016-11-15 13:47 | PULMONARY PROGRESS NOTE ---
DATE: 11/15/2016 TIME: 1:15 p.m. SUBJECTIVE: The patient is doing poorly. He remains unresponsive. His daughter was present during this exam. A new complication today has been subcutaneous emphysema. This is prominent on the anterior chest, greater on the left than the right. The patient reportedly has had a severely abnormal blood gas this morning. The results are not available to me, but Dr. Cruz's note indicates that the pH this morning was 7.09 and the pCO2 was 80. Again, we are trying to pull up the actual values. He then had a repeat blood gas done and the pH was 7.21 with a pCO2 of 59.9 and a pO2 of 84. That was on the ventilator, but the exact settings were not entirely known. Temperature is 36.7. His cardiac rhythm is now atrial fibrillation. The rate is 125. There is subQ emphysema palpable on the chest wall as noted. It does not seem to extend significantly up into the face. Blood pressure is 104/41. Auscultation of the lung hill did reveal breath sounds bilaterally. They really did not sound all that badly. His exam is much less abnormal than one might expect. He does have both an oral endotracheal tube in place and an oral gastric tube in place. Extremities showed no significant edema. LABORATORY DATA: Electrolytes show sodium 141, potassium 4.2, chloride 107, bicarbonate 25. BUN is 40 with a creatinine of 1.1. Glucose was 110. Total protein was 5.9. Albumin was only 1.3. The patient's chest x-ray from today shows interval development of subQ emphysema. There is persistence of extensive bilateral infiltrates. IMPRESSION: 1. Respiratory failure with hypoxia and hypercarbia. 2. Bilateral lung infiltrates. 3. Nonsmall cell carcinoma of the right upper lobe, stage T3 M3. 4. Subcutaneous emphysema. 5. Pneumothorax -- status post chest tube. COMMENTS AND RECOMMENDATIONS: The patient is doing very poorly. The family is awaiting his son's arrival. Consideration could be given to decreasing the PEEP and observing if there is any change in his O2 saturations. Additional consideration could be doing a CAT scan of the chest to rule out pneumothorax that is not seen on the plain x-ray. There clearly is air under pressure. I believe the status and prognosis are poor.
[2016-11-15] MEDS ORDERED: FENTANYL CITRATE INJ 50 MCG/1 ML 2 ML VIAL IV PRN (14:00)
[2016-11-15] MEDS ORDERED: LEVOFLOXACIN CONSULT ACTIVE PRN (14:45)
--- NOTE | 2016-11-15 15:41 | Pharmacy Progress Note ---
Pharmacy Antibiotic Prog Note Date of Service: Nov 15, 2016. Subjective: The patient is currently receiving vancomycin 750 mg iv q 10 hrs, zosyn 3.375 gm iv q 8 hrs, levaquin 750 mg q 48 hrs, and bactrim DS 1 tab q12 hrs The patient is currently on day # 5 of IV therapy. Objective: Height (Feet): 5 Height (Inches): 7.00 Weight (Kilograms): 51.300 Levels: Item Value Date Time Vancomycin Level Trough 33.9 mcg/ml 11/15/16 1335 Vancomycin Level Trough 22.0 mcg/ml 11/14/16 0735 Vancomycin Level Trough 19.5 mcg/ml 11/13/16 0726 Lab Results (24hrs): Laboratory Tests Test 11/15/16 05:45 BUN/Creatinine Ratio 36.1 Blood Urea Nitrogen 40 mg/dl Creatinine 1.10 mg/dl White Blood Count 12.15 K/uL Red Blood Count 3.17 M/uL Hemoglobin 8.6 g/dL Hematocrit 28.1 % Mean Corpuscular Volume 88.6 fL Mean Corpuscular Hemoglobin 27.1 pg Mean Corpuscular Hemoglobin Concent 30.6 g/dl Platelet Count 152 K/uL Mean Platelet Volume 9.0 fL Neutrophils (%) (Auto) 93.0 % Lymphocytes (%) (Auto) 1.3 % Monocytes (%) (Auto) 1.1 % Eosinophils (%) (Auto) 3.8 % Basophils (%) (Auto) 0.0 % Neutrophils # (Auto) 11.30 K/uL Lymphocytes # (Auto) 0.16 K/uL Monocytes # (Auto) 0.13 K/uL Eosinophils # (Auto) 0.46 K/uL Basophils # (Auto) 0.00 K/uL Assessment & Plan: Patient on broad spectrum antibiotics including vancomycin, zosyn, levaquin and bactrim (not consult) after being admitted with worsening SOB and fever. Of note , had been transferred from an OSH were he had received antibiotics prior. ID is consulted to follow patient. Cultures are negative thus far. Vancomycin: * Trough level this afternoon supratherapeutic at ~33 mcg/ml (goal 15-20 mcg/ml for PNA) ; 1400 scheduled dose was put on hold and dc'ed * Scr has been increasing over the past few days (11/14 Scr 0.78 mg/dL increased to 1.10 mg/dL today), along with a decrease in urine output (2.39 ml/kg/hr to 1.59 ml/kg/hr) * Due to unstable renal function will dose based upon random levels ; will order a random level in the am to assist with further dosing ; estimated level tomorrow am still >15 mcg/ml * Estimated kinetics based upon level: ke ~0.05, t1/2~13 hrs Zosyn: * 3.375 gm iv q 8 hrs - appropriate for CrCl>20 ml/min (actual CrCl ~42 ml/min) Levaquin: * adjusted to 750 mg iv q 48 hrs - appropriate for CrCl<50 m/min Bactrim: * 1 DS tab po bid - no adjustment necessary for CrCl>30 ml/min Pharmacy will continue to follow and will adjust dose/frequency as necessary. Thank you
[2016-11-15] MEDS: PEPTAMEN INTENSE VHP 1000ML BAG OG SCH (16:23)
[2016-11-15] MEDS: DILTIAZEM HCL INJ 125 MG in DEXTROSE 5% 100ML IV PRN ×2 (16:23→21:55)
--- NOTE | 2016-11-15 19:52 | Progress Note ---
Progress Note Date of Service Nov 15, 2016. Progress Note Senior Net Developer: Son has arrived from [place]. Family meeting planned for tomorrow - no time set. Discussed code status with daughter who is agreeable to DNR. Order entered.
[2016-11-16] VITALS (35 sets, daily range): BP systolic 64–140; BP diastolic 25–61; PULSE 83–142; TEMP 36.4–36.6; O2SAT 92–97
[2016-11-16] MEDS: TUBE FEEDING WATER FLUSH NG SCH ×6 (00:22→20:26)
[2016-11-16] MEDS: DILTIAZEM HCL INJ 125 MG in DEXTROSE 5% 100ML IV PRN (03:40)
[2016-11-16] MEDS: HALOPERIDOL LACTATE 5 MG/ML 1 ML VIAL IV SCH ×4 (04:00→22:00)
[2016-11-16 05:29] LABS: EOS % 0.1 %; HEMATOCRIT 27.1 % (42-52); IG% 0.8 %; LYMPH % 1.5 %; LYMPH ABS # 0.21 K/uL (1.2-3.4); MEAN CELL VOLUME 87.1 fL (80-100); MEAN CORPUSCULAR HEMOGLOBIN 27.3 pg (25-34); MEAN CORPUSCULAR HGB CONC 31.4 g/dl (32-36); MEAN PLATELET VOLUME 8.8 fL (7.4-10.4); MONO % 1.8 %; NEUT % 95.8 %; PLATELET COUNT 155 K/uL (130-400); RED BLOOD COUNT 3.11 M/uL (4.7-6.1); WHITE BLOOD COUNT 14.48 K/uL (4.8-10.8)
[2016-11-16 05:54] LABS: COMPLETE YES; POLYCHROMASIA 1+
[2016-11-16] MEDS: PIPERACILL/TAZOBAC IV 3.375 GM in DEXTROSE 5% 100ML IV SCH ×3 (06:07→22:02)
[2016-11-16 06:08] LABS: BUN/CREATININE RATIO 34.7 (10-20); CALCIUM 8.3 mg/dl (8.5-10.1); CREATININE 1.5 mg/dl (0.60-1.40); MAGNESIUM 2.3 mg/dl (1.8-2.4); POTASSIUM 3.5 mmol/L (3.5-5.1)
[2016-11-16 06:19] LABS: PHOSPHORUS 5.5 mg/dl (2.5-4.9)
[2016-11-16] MEDS: INSULIN ASPART 100 UNITS/ML 3 ML PEN SC SCH ×4 (06:45→21:00)
[2016-11-16] MEDS: ALBUTEROL HFA 8 GM INHALER INH SCH ×4 (07:31→20:17)
[2016-11-16] MEDS: IPRATROPIUM BROMIDE HFA INHALER INH SCH ×4 (07:31→20:17)
[2016-11-16] MEDS ORDERED: POTASSIUM CHLORIDE 20 MEQ/15 ML UDC PO STA (07:39)
--- NOTE | 2016-11-16 07:45 | DIAGNOSTIC IMAGING REPORT ---
SINGLE VIEW CHEST CLINICAL HISTORY: ARDS. Sepsis. Lung cancer. Respiratory failure. FINDINGS: An AP, portable, upright chest radiograph is compared to study dated 11/15/2016. Correlation is made with chest CT dated 10/27/2016. The examination is degraded by portable technique and patient rotation. An endotracheal tube, and enteric tube, a right internal jugular central venous catheter, and a pigtail catheter on the right are unchanged in position. The heart appears mildly enlarged. A mass lesion at the right apex emphysema are similar to previous. Chronic interstitial thickening is unchanged. Diffuse bilateral airspace opacities, left greater than right are similar to yesterday. Small pleural effusions are identified. No pneumothorax is seen. The skeletal structures are osteopenic. The bony thorax is grossly intact. Subcutaneous emphysema is noted along the right chest wall. Extensive subcutaneous emphysema is also seen within the lower neck bilaterally. IMPRESSION: 1. Diffuse bilateral patchy airspace opacities, left greater than right with associated pleural effusions has not significant change from yesterday. 2. Cardiomegaly and emphysema. 3. A right apical mass lesion is again noted. 4. Stable lines and tubes. 5. Extensive subcutaneous emphysema is above. Electronically signed by: Lawrence Parra M.D. 11/16/2016 7:44 AM Dictated Date/Time: 11/16/2016 7:40 AM
[2016-11-16] MEDS: ASPIRIN 81 MG CHEW NG SCH (09:05)
[2016-11-16] MEDS: SULFAMETHOXAZOLE/TRIMETHOPRIM DS 800/160MG TAB PO SCH ×2 (09:05→21:24)
[2016-11-16] MEDS: DOCUSATE SODIUM 100 MG/10 ML UDC PO SCH ×2 (09:05→21:24)
[2016-11-16] MEDS: MULTIVITAMINS W/MINERALS 15ML UDP PO SCH (09:05)
[2016-11-16] MEDS: SENNA 8.8 MG/5 ML UDP PO SCH (09:06)
[2016-11-16] MEDS: PANTOprazole INJ 40 MG in SYRINGE 0 ML IV SCH (09:08)
[2016-11-16] MEDS: FUROSEMIDE INJ 80 MG in SYRINGE 0 ML IV SCH ×2 (09:08→17:15)
[2016-11-16] MEDS: CHLORHEXIDINE GLUCONATE 0.12% 480 ML MT SCH ×2 (09:08→20:26)
[2016-11-16] MEDS: HEPARIN SOD 5000 UNIT/0.5 ML CARP SQ SCH ×2 (09:09→21:25)
--- NOTE | 2016-11-16 09:43 | Pharmacy Progress Note ---
Pharmacy Antibiotic Prog Note Date of Service: Nov 16, 2016. Subjective: The patient is currently receiving vancomycin - dosed based upon levels, zosyn 3.375 gm iv q 8 hrs, bactrim DS 1 tab q 12 hrs, levaquin 750 mg iv q 48 hrs The patient is currently on day #6 of IV therapy. Objective: Height (Feet): 5 Height (Inches): 7.00 Weight (Kilograms): 54.200 Levels: Item Value Date Time Random Vancomycin Level 27.1 mcg/ml 11/16/16 0515 Vancomycin Level Trough 33.9 mcg/ml 11/15/16 1335 Lab Results (24hrs): Laboratory Tests Test 11/16/16 05:15 BUN/Creatinine Ratio 34.7 Blood Urea Nitrogen 52 mg/dl Creatinine 1.50 mg/dl White Blood Count 14.48 K/uL Red Blood Count 3.11 M/uL Hemoglobin 8.5 g/dL Hematocrit 27.1 % Mean Corpuscular Volume 87.1 fL Mean Corpuscular Hemoglobin 27.3 pg Mean Corpuscular Hemoglobin Concent 31.4 g/dl Platelet Count 155 K/uL Mean Platelet Volume 8.8 fL Neutrophils (%) (Auto) 95.8 % Lymphocytes (%) (Auto) 1.5 % Monocytes (%) (Auto) 1.8 % Eosinophils (%) (Auto) 0.1 % Basophils (%) (Auto) 0.0 % Neutrophils # (Auto) 13.88 K/uL Lymphocytes # (Auto) 0.21 K/uL Monocytes # (Auto) 0.26 K/uL Eosinophils # (Auto) 0.02 K/uL Basophils # (Auto) 0.00 K/uL Assessment & Plan: Patient on broad spectrum antibiotics including vancomycin, zosyn, levaquin and bactrim (not consult) after being admitted with worsening SOB and fever. Of note , had been transferred from an OSH were he had received antibiotics prior. ID is consulted to follow patient. Cultures are negative thus far. Vancomycin: * Random level this am supratherapeutic at ~27 mcg/ml (goal 15-20 mcg/ml for PNA ) * Scr continues to rise, from 1.10 mg/dL to 1.50 mg/dL today (CrCl ~31 ml/min) * Estimated kinetics based upon level: t/12>24 hrs, ke~0.0139 hr-1 * Will continue to hold doses for today and order a random level for tomorrow am to assist with further dosing ; estimated level tomorrow am still >15 mcg/ml Zosyn: * 3.375 gm iv q 8 hrs - appropriate for CrCl>20 ml/min (actual CrCl ~31 ml/min) Levaquin: * adjusted to 750 mg iv q 48 hrs - appropriate for CrCl<50 m/min Bactrim: * 1 DS tab po bid - no adjustment necessary for CrCl>30 ml/min Pharmacy will continue to follow and will adjust dose/frequency as necessary. Thank you
[2016-11-16] MEDS: FENTANYL 1250MCG/250ML NSS 250 ML IV PRN (10:54)
[2016-11-16] MEDS: PROPOFOL IV EMULSION 10 MG/ML 100 ML VIAL IV PRN (10:55)
--- NOTE | 2016-11-16 12:07 | CRITICAL CARE PROGRESS NOTE ---
DATE: 11/16/2016 DATE: 11/16/2016. 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 He underwent chemotherapy with paclitaxel carboplatin and completed radiation therapy in the third week of September. Follow-up CT scan showed a decrease in the size of his right upper lobe mass but increase in right lower lobe consolidation. The mass also had cavitated. Due to cough, he received Levaquin as an outpatient for 10 days and was initially feeling better but on 11/10/2016 he became short of breath, febrile to 101 degrees Fahrenheit and was taken to [facility]. He was admitted there and was given vancomycin and cefepime. He was transferred to [facility] on 11/12/2016 and was initially in the PCU on 100% facemask. He was transferred to the intensive care unit due to concerns of respiratory decompensation. His antibiotic regimen was broadened to include vancomycin, Zosyn, Bactrim and Levaquin. He was intubated on 11/12/2016 and a bronchoscopy with multiple BALs was done. Nothing has grown from any of the BAL sampling. Quantitative TB assay is negative along with legionella urinary antigen. Supportive care has been provided since his time the intensive care unit with broad spectrum antibiotics, bronchodilators, ventilator management and tube feeding. During his time here, he developed a right-sided spontaneous pneumothorax for which I placed an 8 Slovak pneumo tube. He has been on between 80 and 100% FIO2 and between 13 and 15 of PEEP over the past week and his plateau pressures have been anywhere between 22 and 28. Yesterday evening he went back into atrial fibrillation with rapid ventricular response and was given several Cardizem boluses and the Cardizem infusion was resumed. He returned to normal sinus rhythm last night. He still has not had a bowel movement. His family has been requesting that his sedation be adjusted based on whether or not they are at the bedside. He is on fentanyl and propofol infusions. He is also getting scheduled Haldol. PHYSICAL EXAMINATION: VITAL SIGNS: Maximum temperature 37.6, heart rate 80s, respiratory rate 25-32, blood pressure 99-140/40s to 50s, oxygen saturation 92-95%. Ventilator settings are assist control rate 26, tidal volume 420, FIO2 100%, PEEP 13. GENERAL: He will open his eyes, but does not follow commands. He will squeeze my fingers if I put them in his hand. LUNGS: Have decreased breath sounds, more so in the bases with some rales in left base. Overall, it sounds like good air exchange. HEART: Regular rate and rhythm. No murmurs. CHEST: A 8 Slovak chest tube is in place. There is tape over top of it. He has a grade 1 air leak. ABDOMEN: More distended but still soft. No rebound or guarding. Hypoactive bowel sounds. EXTREMITIES: 2+ edema of the hands and 1+ edema of the feet. SCDs are in place. LABORATORY DATA: White blood cell count 14.48, hemoglobin 8.5, hematocrit 27.1, platelets 155. Sodium 139, potassium 3.5, chloride 100, CO2 24, BUN 52, creatinine 1.5, glucose 147, phosphorus 5.5, calcium 8.3, magnesium 2.3. Portable chest x-ray from this morning was reviewed and shows diffuse bilateral patchy infiltrates, left greater than right. Subcutaneous emphysema is noted. MEDICATIONS: Acetaminophen, albuterol, aspirin, Dulcolax, chlorhexidine, diltiazem, Colace, Peptamen, fentanyl, Lasix, Haldol, heparin, insulin, Atrovent, Levaquin day 6, Zosyn day 6, Bactrim day 5 and vancomycin day 6, multivitamin, norepinephrine, Zofran, Protonix, propofol, senna, sterile water. MICROBIOLOGY DATA has been reviewed. IMPRESSION: 1. Acute hypoxemic respiratory failure with acute respiratory distress syndrome, ventilator day 5. He has been on broad spectrum antibiotics for 7 days including time spent at [facility]. We have no organisms from the bronchoscopy or expectorated sputum. The infectious disease service has been following him as well. His plateau pressures have been variable but acceptable. 2. Nonsmall cell carcinoma [id number], status post chemotherapy and radiation therapy. 3. Right pneumothorax status post chest tube on 11/14/2016. He continues to have subcutaneous emphysema. He may have a very tiny basilar pneumothorax on his chest x-ray. He is too ill to send for CT scan. 4. New onset atrial fibrillation with rapid ventricular response. He is back in sinus rhythm presently and has not been on a heparin infusion to this point. 5. Protein calorie malnutrition, getting tube feeds and tolerating them at 50 mL per hour. 6. Status post non-ST segment elevation myocardial infarction on admission. Ejection fraction 40%. 7. Acute kidney injury with rising creatinine. No indications for urgent dialysis and I do not think it would be appropriate to do dialysis on him given his clinical picture and cancer. 8. Anemia, stable. No signs of acute blood loss. PLAN: NEUROLOGIC: Continue scheduled Haldol as well as fentanyl and propofol infusions. The family has been requesting the sedation titration based on whether or not they are in the room and whether or not they would like to interact with him now that his son has finally arrived from [place]. My concern is that he does not appear comfortable to me when the sedation is turned down. I have tried to discuss that with them. I am sure he has an element of delirium as well. PULMONARY: ABG from today was reviewed. I am reluctant to take his PEEP down any further. Continue present management. He might require a larger chest tube. Continue the 8-Slovak tube to wall suction. Consider decreasing the PEEP. CARDIOVASCULAR: Continue Cardizem drip at 5 mg per hour. If he goes back into atrial fibrillation consider heparinization. Presently, the norepinephrine is off, but his blood pressure seems to fluctuate a lot. RENAL: Continue Lasix. Consider Bumex infusion. Renally adjust medications and avoid nephrotoxic medications. INFECTIOUS DISEASE: Continue antibiotics. Await any further recommendations from infectious disease. Although family told me yesterday they wanted to to continue the antibiotics for at least 5 days before making a decision about changing the goals of care, I think they are reconsidering and may not be ready to make a decision to limit his care. GASTROINTESTINAL: Continue tube feeds as well as GI prophylaxis. He may require an enema. I have escalated his bowel regimen over the past several days. HEMATOLOGY ONCOLOGY: I am concerned that this is lymphangitic spread of his nonsmall cell carcinoma. I showed the family the progression of his radiographs yesterday from the time of his diagnosis until yesterday. Continue subcutaneous heparin b.i.d. - change from lovenox secondary to decreasing platelets and now renal failure. ENDOCRINE: No acute active issues. He is off hydrocortisone and had decadron as an outpatient surrounding his chemotherapy. MISCELLANEOUS: He has a right internal jugular triple lumen catheter placed on 11/12/2016 and a left femoral arterial line placed on 11/14/2016. Yesterday after my discussion with family I was under the impression that today they might want to change the goals of care to comfort. I was fully prepared to have a family meeting with them this morning. When I talked to the patient's daughter today it sounds like they have had a change of heart. She tells me he seems to be enjoying interacting with them when the sedation is lowered. I think she understands that he will not survive this illness, but she seems to be reconsidering the amount of time that her family is willing to continue aggressive care. At this point, he is developing multisystem organ failure and I do think that he is comfortable at all. Certainly there are cultural considerations regarding goals of care and communication about it. He has been made DNR and I asked them to consider whether or not they would want him to have any further procedures if he needs them. I would not recommend dialysis should it come to that point. Ongoing discussions may be helpful. Critical care time 60 minutes. KYLIE
--- NOTE | 2016-11-16 13:28 | Progress Note ---
Subjective Date of Service: Nov 16, 2016. Subjective Pt evaluation today including: conversation w/ family (daughter, son, and son in law), physical exam, lab review, review of studies, conversation w/ communication consultant, review of inpatient medication list Pain: sedated PO Intake: OG tube feeds Voiding: arzate catheter in place two long discussions with family members today, discussed case at length with university teacher as well summary, explained that currently the patient has multiple organ systems that are failing: respiratory, cardiac, renal, mesenteric, neurologic underlaying advanced malignancy that cannot be cured his chance of meaningful survival is 0% daughter agrees to make DNR and no further procedures discussed that we need to change gears towards a palliative approach, withdraw care, make patient comfortable she understands this now and would like to talk further with her brother and mother no issues overnight, still intubated on high vent settings, still requiring vasopressors Problem List Medical Problems: (1) Anemia Status: Acute (2) Chronic subdural hematoma Status: Acute (3) Lung cancer Status: Acute Review of Systems cannot review, sedated and intubated Medications Current Inpatient Medications Medications (Trade) Dose Ordered Sig/Cindy Route Start Time Stop Time Status Last Admin Dose Admin Acetaminophen (Tylenol Tab) 650 mg Q4H PRN PO 11/11/16 14:00 12/11/16 13:59 Ondansetron HCl (Zofran Inj) 4 mg Q6H PRN IV 11/11/16 14:00 12/11/16 13:59 11/12/16 10:56 4 MG Piperacillin Sod/ Tazobactam Sod (Consult) 1 ea UD PRN N/A 11/11/16 14:30 12/11/16 14:29 Vancomycin HCl 1 ea 1 ea UD PRN N/A 11/11/16 14:30 12/11/16 14:29 Piperacillin Sod/ Tazobactam Sod/ Dextrose (Zosyn Iv/D5 100ml) 115 ml @ 28.75 mls/ hr Q8H IV 11/11/16 22:00 11/18/16 21:59 11/16/16 06:07 28.75 MLS/HR Insulin Aspart (novoLOG ASPART) SLIDING SCALE G... ACHS SC 11/11/16 16:15 12/11/16 16:14 11/11/16 18:26 5 UNITS Glucose (Glucose 40% Gel) 15-30 GRAMS 15 GRAMS... UD PRN PO 11/11/16 16:15 12/11/16 16:14 Glucose (Glucose Chew Tab) 4-8 Tablets 4 Tabl... UD PRN PO 11/11/16 16:15 12/11/16 16:14 Dextrose (Dextrose 50% 50ML Syringe) 25-50ML OF 50% DW IV FOR... UD PRN IV 11/11/16 16:15 12/11/16 16:14 Glucagon (Glucagon Inj) 1 mg UD PRN SQ 11/11/16 16:15 12/11/16 16:14 Miscellaneous Information 1 ea 1 ea UD N/A 11/11/16 19:09 12/11/16 19:08 Fentanyl Citrate 250 ml @ 0 mls/hr Q0M PRN IV 11/11/16 22:45 11/25/16 22:44 11/16/16 10:54 20 MLS/HR Norepinephrine Bitartrate/ Dextrose (Levophed Inj/ D5W 500ml) 508 ml @ 0 mls/hr Q0M PRN IV 11/11/16 22:33 12/11/16 22:32 11/15/16 11:02 19.1 MLS/HR Chlorhexidine Gluconate (Peridex Oral Soln) 15 ml BID MT 11/12/16 09:00 12/12/16 08:59 11/16/16 09:08 15 ML Trimethoprim/ Sulfamethoxazole (Septra Ds 800/ 160MG Tab) 1 tab Q12 PO 11/12/16 09:00 11/19/16 08:59 11/16/16 09:05 1 TAB Ipratropium [place] (Atrovent Hfa Inhaler) 4 puffs QIDR INH 11/12/16 08:00 12/12/16 07:59 11/16/16 11:37 4 PUFFS Albuterol 4 puffs 4 puffs QIDR INH 11/12/16 08:00 12/12/16 07:59 11/16/16 11:37 4 PUFFS Pantoprazole Sodium/Syringe (Protonix Inj/ Syringe) 10 ml @ 5 mls/min DAILY@11 IV 11/12/16 11:00 12/12/16 10:59 11/16/16 09:08 5 MLS/MIN Multivitamins Therapeutic (Cerovite Liquid) 15 ml QAM PO 11/13/16 10:00 12/13/16 09:59 11/16/16 09:05 15 ML Docusate Sodium (coLACE SYRUP) 100 mg BID PO 11/13/16 21:00 12/13/16 20:59 11/16/16 09:05 100 MG Aspirin (Aspirin Chew) 81 mg DAILY NG 11/14/16 09:00 12/14/16 08:59 11/16/16 09:05 81 MG Enteral Nutritional Formula (Peptamen Intense VHP) 1,000 ml UD OG 11/13/16 15:30 12/13/16 15:29 11/15/16 16:23 1,000 ML Sterile Water 1 ea 1 ea Q4 NG 11/13/16 20:00 12/13/16 19:59 11/16/16 11:06 1 EA Diltiazem HCl/ Dextrose (Cardizem Inj/D5 100ml) 125 ml @ 0 mls/hr Q0M PRN IV 11/13/16 22:30 12/13/16 22:29 11/16/16 03:40 10 MLS/HR Haloperidol Lactate (Haldol Inj) 5 mg Q6H IV 11/14/16 10:00 12/14/16 09:59 11/15/16 16:26 5 MG Heparin Sodium (Porcine) (Heparin Sq 5000 Unit/0.5ml) 5,000 unit Q12 SQ 11/14/16 21:00 12/14/16 20:59 11/16/16 09:09 5,000 UNIT Propofol 1 dose 1 dose UD PRN IV 11/15/16 01:45 11/18/16 01:44 11/16/16 10:55 1 DOSE Furosemide/Syringe (Lasix Inj/ Syringe) 8 ml @ 4 mls/min BID17 IV 11/15/16 09:00 12/15/16 08:59 11/16/16 09:08 4 MLS/MIN Fentanyl Citrate (Fentanyl Inj) 50 mcg Q2H PRN IV 11/15/16 14:00 11/29/16 13:59 Senna (Senokot Syrup) 8.8 mg QAM PO 11/16/16 09:00 12/16/16 08:59 11/16/16 09:06 8.8 MG Bisacodyl (Dulcolax Supp) 10 mg DAILY PRN MD 11/15/16 12:45 12/15/16 12:44 Levofloxacin 1 ea 1 ea UD PRN N/A 11/15/16 14:45 12/15/16 14:44 Levofloxacin/Prmx (Levaquin / D5W/ Premixed D5W) 150 ml @ 100 mls/hr Q2D@1700 IV 11/16/16 17:00 11/18/16 23:59 Objective Vital Signs Date Time Temp Pulse Resp B/P Pulse Ox O2 Delivery O2 Flow Rate FiO2 11/16/16 12:00 86 31 132/55 94 Mechanical Ventilator 100 115/47 11/16/16 12:00 100 11/16/16 12:00 Mechanical Ventilator 100 11/16/16 11:38 100 11/16/16 11:00 36.6 88 32 136/57 92 Mechanical Ventilator 100 11/16/16 10:11 100 11/16/16 10:01 90 31 117/51 95 Mechanical Ventilator 100 11/16/16 09:00 88 32 121/48 95 Mechanical Ventilator 100 11/16/16 08:01 36.5 86 32 126/47 94 Mechanical Ventilator 100 11/16/16 08:00 Mechanical Ventilator 100 11/16/16 08:00 100 11/16/16 07:32 100 11/16/16 07:00 86 31 121/48 93 Mechanical Ventilator 100 11/16/16 06:01 87 27 140/55 95 11/16/16 06:00 87 29 140/55 95 11/16/16 05:57 88 28 140/56 95 11/16/16 05:30 85 27 134/45 95 11/16/16 05:23 100 11/16/16 05:01 83 26 104/41 95 11/16/16 05:00 84 26 105/42 95 11/16/16 04:56 83 27 99/47 95 11/16/16 04:01 83 27 105/39 94 11/16/16 04:00 100 11/16/16 04:00 84 27 103/40 94 11/16/16 04:00 94 Mechanical Ventilator 100 11/16/16 03:00 36.4 85 27 105/50 94 11/16/16 01:59 100 11/16/16 01:00 86 27 105/51 94 11/16/16 00:00 94 Mechanical Ventilator 100 11/16/16 00:00 87 28 104/45 94 11/16/16 00:00 100 11/15/16 23:45 100 11/15/16 23:05 36.3 88 27 115/39 92 11/15/16 22:00 90 33 112/56 92 Mechanical Ventilator 11/15/16 21:00 96 30 108/50 91 Mechanical Ventilator 11/15/16 20:54 111 32 105/38 90 11/15/16 20:19 100 11/15/16 20:00 91 Mechanical Ventilator 100 11/15/16 20:00 124 32 109/59 91 121/44 11/15/16 20:00 100 11/15/16 19:00 120 33 118/51 90 11/15/16 18:00 126 26 118/56 93 Mechanical Ventilator 100 11/15/16 17:12 100 11/15/16 17:00 121 23 99/53 94 Mechanical Ventilator 100 123/45 11/15/16 16:00 100 11/15/16 16:00 36.4 118 25 114/64 93 Mechanical Ventilator 100 11/15/16 16:00 Mechanical Ventilator 100 11/15/16 15:53 100 11/15/16 15:00 117 25 101/62 94 Mechanical Ventilator 100 11/15/16 14:00 120 22 107/56 95 Mechanical Ventilator 100 122/45 11/15/16 13:50 118 24 93/57 93 Mechanical Ventilator 100 Physical Exam General Appearance: + mild distress, + thin Eyes: + pertinent finding (cataracts) ENT: + pertinent finding (intubated and OG tube in place) Neck: supple, no adenopathy, no JVD, trachea midline Respiratory/Chest: + respiratory distress, + accessory muscle use, + crackles ( bilaterally), + rales Cardiovascular: no edema, no gallop, no JVD, no murmur, + tachycardia Abdomen: non tender, soft, no organomegaly, no pulsatile mass, + abnormal bowel sounds (hypoactive, practically absent) Extremities: non-tender, normal inspection, no pedal edema, no calf tenderness , pelvis stable, + slow capillary refill Neurologic/Psychiatric: no motor/sensory deficits, + depressed affect, + disoriented, + pertinent finding (not following commands) Skin: normal color, warm/dry, no rash Lymphatic: no adenopathy Laboratory Results Last 24 Hours Test 11/15/16 13:35 11/15/16 16:42 11/15/16 21:50 11/16/16 05:15 Vancomycin Level Trough 33.9 mcg/ml Bedside Glucose (other) 135 mg/dl 166 mg/dl White Blood Count 14.48 K/uL Red Blood Count 3.11 M/uL Hemoglobin 8.5 g/dL Hematocrit 27.1 % Mean Corpuscular Volume 87.1 fL Mean Corpuscular Hemoglobin 27.3 pg Mean Corpuscular Hemoglobin Concent 31.4 g/dl Platelet Count 155 K/uL Mean Platelet Volume 8.8 fL Neutrophils (%) (Auto) 95.8 % Lymphocytes (%) (Auto) 1.5 % Monocytes (%) (Auto) 1.8 % Eosinophils (%) (Auto) 0.1 % Basophils (%) (Auto) 0.0 % Neutrophils # (Auto) 13.88 K/uL Lymphocytes # (Auto) 0.21 K/uL Monocytes # (Auto) 0.26 K/uL Eosinophils # (Auto) 0.02 K/uL Basophils # (Auto) 0.00 K/uL RDW Standard Deviation 55.8 fL RDW Coefficient of Variation 17.5 % Immature Granulocyte % (Auto) 0.8 % Immature Granulocyte # (Auto) 0.11 K/uL Polychromasia 1+ Sodium Level 139 mmol/L Potassium Level 3.5 mmol/L Chloride Level 100 mmol/L Carbon Dioxide Level 27 mmol/L Anion Gap 12.0 mmol/L Blood Urea Nitrogen 52 mg/dl Creatinine 1.50 mg/dl Est Creatinine Clear Calc Drug Dose 31.4 ml/min Estimated GFR () 52.4 Estimated GFR (Non- 45.2 BUN/Creatinine Ratio 34.7 Random Glucose 147 mg/dl Calcium Level 8.3 mg/dl Phosphorus Level 5.5 mg/dl Magnesium Level 2.3 mg/dl Random Vancomycin Level 27.1 mcg/ml Test 11/16/16 06:27 11/16/16 11:04 Bedside Glucose (other) 153 mg/dl Bedside Glucose 148 mg/dl Assessment and Plan 76 yo male with stage IIIb right sided adenocarcinoma s/p chemo and radiation who presents with bilateral pneumonia and acute respiratory failure. Shortly after admission his respiratory status declined and he was transferred to ICU and later intubated due to severe hypoxia despite high FiO2. - Acute hypoxic respiratory failure, ARDS: mechanical ventilation, intubated on 11/11 at night, now intubated 5 days management per ICU unfortunately he is not improving, requiring high PEEP of 12, max FiO2 of 100 % hypercapnia due to inability to use higher tidal volumes, under ventilating updated family today, he will not recover, recommending withdrawal of care and comfort measures - suspected Bilateral pneumonia, HCAP: numerous bronchial aspirations without growth, negative blood cultures, no response to antibiotics Vancomycin, Zosyn and Levaquin day 6 during this hospitalization, but he completed 2 days prior to transfer and 10 days PO prior to admission legionella antigen not detected, bronchial lavage cultures sent (no growth), Quantiferon gold negative no mucous plugging or increased secretions seen with bronchoscopy? at this point it seems like pneumonia less likely, recommend discontinuing antibiotics - Acute renal failure: BUN and Cr rising, sharp rise today at 52/1.5 prerenal vs ATN in the setting of multiorgan failure continue to utilize Lasix BID, adequate urine output, electrolytes stable - hypotension due to sedation, not considered septic shock at this point: continues to need Levophed periodically reduced Hydrocortisone dose to 25mg q8 try to wean off of Propofol - Right pneumothorax: treated with chest tube, management per ICU, now with subcutaneous emphysema - Demand ischemia vs NSTEMI: troponin mike to 3.2, trending down, no EKG changes , never had chest pain echo with reduced EF of 40%, global hypokinesis, no significant valve disease start Aspirin 81mg, will try to start beta sammy once off of Levophed, cannot accomplish this - Anemia: dropped from admission but now stable, no overt signs of bleeding, continue to monitor - Stage IIIb lung adenocarcinoma: completed chemo and radiation appreciate consult, approach would be palliative since he did not respond very well to chemotherapy and radiation - DVT prophylaxis: Lovenox - GI prophylaxis: Protonix IV, tube feeds Code status: DNR, no further procedures Plan: both university teacher and myself made recommendations to the family to withdraw care and make patient comfortable patient has 5 organ systems failing, chance of recovery is 0% also, has underlaying advanced lung malignancy awaiting family to decide on timing of withdrawal, at that time would institute morphine drip and extubate once comfortable please note that 60 minutes spent on patient today, 25 minutes reviewing chart, discussing with communication consultant and examining patient, 35 minutes spent with family
[2016-11-16] MEDS ORDERED: LEVOFLOXACIN 750MG / D5W IV SCH (17:00)
[2016-11-16] MEDS: PEPTAMEN INTENSE VHP 1000ML BAG OG SCH (17:15)
[2016-11-16] MEDS ORDERED: NURSING VERBAL MED ORDER ONE (22:30)
[2016-11-16] MEDS: ALBUMIN HUMAN 25% 12.5 GM/50 ML VIAL IV SCH ×2 (23:16→23:30)
[2016-11-16] MEDS: NOREPINEPHRINE BIT INJ 8 MG in DEXTROSE 5% 500ML 500 ML IV PRN (23:49)
[2016-11-17] VITALS (21 sets, daily range): BP systolic 77–128; BP diastolic 37–74; PULSE 94–146; TEMP 36.6–37.8; O2SAT 92–99
[2016-11-17] MEDS: TUBE FEEDING WATER FLUSH NG SCH ×5 (00:45→16:00)
[2016-11-17] MEDS: PROPOFOL IV EMULSION 10 MG/ML 100 ML VIAL IV PRN ×3 (01:38→19:16)
[2016-11-17] MEDS: FENTANYL 1250MCG/250ML NSS 250 ML IV PRN ×2 (01:39→10:38)
[2016-11-17] MEDS: HALOPERIDOL LACTATE 5 MG/ML 1 ML VIAL IV SCH (03:37)
[2016-11-17] MEDS: PIPERACILL/TAZOBAC IV 3.375 GM in DEXTROSE 5% 100ML IV SCH (06:06)
[2016-11-17] MEDS: INSULIN ASPART 100 UNITS/ML 3 ML PEN SC SCH ×3 (06:45→16:00)
[2016-11-17 06:52] LABS: EOS % 0.5 %; HEMATOCRIT 26.1 % (42-52); IG% 1.1 %; LYMPH ABS # 0.27 K/uL (1.2-3.4); MEAN CELL VOLUME 87.6 fL (80-100); MEAN CORPUSCULAR HEMOGLOBIN 28.2 pg (25-34); MEAN CORPUSCULAR HGB CONC 32.2 g/dl (32-36); MEAN PLATELET VOLUME 9.1 fL (7.4-10.4); MONO % 3.5 %; NEUT % 92.9 %; PLATELET COUNT 188 K/uL (130-400); RED BLOOD COUNT 2.98 M/uL (4.7-6.1); WHITE BLOOD COUNT 13.45 K/uL (4.8-10.8)
[2016-11-17 07:11] LABS: BUN/CREATININE RATIO 42.8 (10-20); CALCIUM 8.4 mg/dl (8.5-10.1); CREATININE 1.5 mg/dl (0.60-1.40); MAGNESIUM 2.2 mg/dl (1.8-2.4); PHOSPHORUS 3.3 mg/dl (2.5-4.9); POTASSIUM 2.5 mmol/L (3.5-5.1)
--- NOTE | 2016-11-17 07:17 | DIAGNOSTIC IMAGING REPORT ---
SINGLE VIEW CHEST CLINICAL HISTORY: ARDS. Sepsis. Lung cancer. Respiratory failure. FINDINGS: 2 AP, portable, upright chest radiographs are compared to study dated 11/16/2016. Correlation is made with chest CT dated 10/27/2016. The examination is significantly degraded by portable technique and patient rotation. An endotracheal tube, and enteric tube, a right internal jugular central venous catheter, and a pigtail catheter on the right are unchanged in position. The heart appears mildly enlarged. A mass lesion at the right apex emphysema are similar to previous. Chronic interstitial thickening is unchanged. Diffuse bilateral airspace opacities, left greater than right are unchanged to slightly progressive from yesterday. Small pleural effusions are identified. No pneumothorax is seen. The skeletal structures are osteopenic. The bony thorax is grossly intact. Subcutaneous emphysema is noted along the right chest wall. Extensive subcutaneous emphysema is also seen within the lower neck bilaterally. IMPRESSION: 1. Diffuse bilateral patchy airspace opacities, left greater than right with associated pleural effusions. This is unchanged to slightly progressive from yesterday. 2. Cardiomegaly and emphysema. 3. A right apical mass lesion is again noted. 4. Stable lines and tubes. 5. Extensive and increasing subcutaneous emphysema as above. Electronically signed by: Lawrence Parra M.D. 11/17/2016 7:15 AM Dictated Date/Time: 11/17/2016 7:14 AM
[2016-11-17] MEDS: SULFAMETHOXAZOLE/TRIMETHOPRIM DS 800/160MG TAB PO SCH (07:37)
[2016-11-17] MEDS: SENNA 8.8 MG/5 ML UDP PO SCH (07:37)
[2016-11-17] MEDS: DOCUSATE SODIUM 100 MG/10 ML UDC PO SCH (07:37)
[2016-11-17] MEDS: MULTIVITAMINS W/MINERALS 15ML UDP PO SCH (07:37)
[2016-11-17] MEDS: ASPIRIN 81 MG CHEW NG SCH (07:37)
[2016-11-17] MEDS: CHLORHEXIDINE GLUCONATE 0.12% 480 ML MT SCH (07:38)
[2016-11-17] MEDS: FUROSEMIDE INJ 80 MG in SYRINGE 0 ML IV SCH (07:43)
[2016-11-17] MEDS: HEPARIN SOD 5000 UNIT/0.5 ML CARP SQ SCH (07:44)
[2016-11-17] MEDS: IPRATROPIUM BROMIDE HFA INHALER INH SCH ×4 (07:59→20:13)
[2016-11-17] MEDS: ALBUTEROL HFA 8 GM INHALER INH SCH ×4 (08:00→20:13)
[2016-11-17] MEDS: POTASSIUM CHLR 20MEQ / WTR IV SCH ×3 (08:36→11:51)
[2016-11-17 08:37] LABS: ISTAT ARTERIAL BLOOD GAS HCO3 34 meq/L (19-24); ISTAT ARTERIAL BLOOD GAS PCO2 64 mmHg (35-46); ISTAT ARTERIAL BLOOD GAS PO2 68 mmHg (80-95); ISTAT ARTERIAL BLOOD GAS pH 7.33 (7.35-7.45); ISTAT CARBON DIOXIDE 36 mEq/l (24-31); ISTAT HEMATOCRIT 24 % (42-52); ISTAT HEMOGLOBIN 8.2 g/dl (14.0-18.0); ISTAT SODIUM 139 mEq/L (135-144)
[2016-11-17 09:41] LABS: COMPLETE YES; LARGE PLATELETS 1+
[2016-11-17 10:13] LABS: COMPLETE YES
--- NOTE | 2016-11-17 10:33 | Progress Note ---
Subjective Date of Service: Nov 17, 2016. Subjective pt with significant issues over weekend including right sided ptx requiring chest tube placement. he remains on vent with increasing pressures and O2 needs. now has elevated creat, 1.5 today. concern for abx as contributing cause in addition to MODS. vanco level today elevated in 20's. Has been on 7 days of multiple broad spectrum abx (plus abx at [facility] prior to transfer). All cultures here, including several from bronch are negative (? if secondary to prior abx). Multiple discussions from critical care and primary service regarding worsening clinical condition and concern for comfort measures, family is deciding. Now DNR. Problem List Medical Problems: (1) Anemia Status: Acute (2) Chronic subdural hematoma Status: Acute (3) Lung cancer Status: Acute Objective Vital Signs Date Time Temp Pulse Resp B/P Pulse Ox O2 Delivery O2 Flow Rate FiO2 11/17/16 08:00 37.8 109 27 112/52 92 Mechanical Ventilator 70 105/47 11/17/16 08:00 Mechanical Ventilator 70 11/17/16 08:00 70 11/17/16 07:40 70 11/17/16 06:00 118 27 94/50 94 Mechanical Ventilator 70 103/48 11/17/16 05:30 136 27 90/51 94 Mechanical Ventilator 70 109/51 11/17/16 05:19 70 11/17/16 05:00 122 26 98/52 97 Mechanical Ventilator 70 105/49 11/17/16 04:30 121 26 102/58 97 Mechanical Ventilator 80 102/49 11/17/16 04:00 100 11/17/16 04:00 Mechanical Ventilator 80 11/17/16 04:00 36.6 128 26 102/62 97 Mechanical Ventilator 80 98/44 11/17/16 03:30 97 26 100/52 98 Mechanical Ventilator 80 106/47 11/17/16 03:00 117 26 103/59 98 Mechanical Ventilator 90 101/46 11/17/16 02:30 107 26 98/56 98 Mechanical Ventilator 90 97/47 11/17/16 02:05 90 11/17/16 02:00 112 26 98/50 99 Mechanical Ventilator 100 92/43 11/17/16 01:30 112 26 101/52 99 Mechanical Ventilator 100 88/37 11/17/16 01:00 118 26 117/68 99 Mechanical Ventilator 100 105/40 11/17/16 00:30 120 27 122/69 98 Mechanical Ventilator 100 113/43 11/17/16 00:15 15 94/53 Mechanical Ventilator 100 89/37 11/17/16 00:01 100 11/17/16 00:01 Mechanical Ventilator 100 11/17/16 00:00 36.8 112 26 102/59 98 Mechanical Ventilator 100 105/39 11/16/16 23:30 110 28 111/56 97 Mechanical Ventilator 100 97/36 11/16/16 23:19 100 11/16/16 23:01 116 27 102/41 96 Mechanical Ventilator 100 119/58 11/16/16 22:30 99 27 87/34 93 Mechanical Ventilator 100 90/45 11/16/16 22:25 97 26 79/38 93 Mechanical Ventilator 100 64/25 11/16/16 22:00 137 31 93/55 94 Mechanical Ventilator 100 94/43 11/16/16 21:32 139 31 97/55 94 Mechanical Ventilator 100 95/45 11/16/16 21:00 140 35 107/61 95 Mechanical Ventilator 100 103/48 11/16/16 20:23 100 11/16/16 20:00 142 32 108/58 96 Mechanical Ventilator 100 105/51 11/16/16 20:00 100 11/16/16 20:00 Mechanical Ventilator 100 11/16/16 19:47 115 34 111/47 94 Mechanical Ventilator 100 100/55 11/16/16 19:30 120 30 106/55 96 Mechanical Ventilator 100 11/16/16 18:30 121 27 117/55 95 Mechanical Ventilator 100 11/16/16 18:01 117 32 112/49 95 Mechanical Ventilator 100 11/16/16 17:48 100 11/16/16 17:00 91 29 130/52 96 Mechanical Ventilator 100 11/16/16 16:01 36.4 89 30 129/52 95 Mechanical Ventilator 100 11/16/16 16:00 100 11/16/16 16:00 Mechanical Ventilator 100 11/16/16 15:00 91 33 131/54 94 Mechanical Ventilator 100 11/16/16 14:53 100 11/16/16 14:01 91 33 130/53 95 Mechanical Ventilator 100 115/51 11/16/16 13:00 86 30 133/55 94 Mechanical Ventilator 100 11/16/16 12:00 86 31 132/55 94 Mechanical Ventilator 100 115/47 11/16/16 12:00 100 11/16/16 12:00 Mechanical Ventilator 100 11/16/16 11:38 100 11/16/16 11:00 36.6 88 32 136/57 92 Mechanical Ventilator 100 Laboratory Results Item Value Date Time Random Vancomycin Level 21.8 mcg/ml 11/17/16 0518 TB Test (QFT) NEGATIVE 11/11/16 1638 Urine Legionella Antigen NOT DETECTED 11/11/16 1520 Gram Stain - Final Complete 11/11/16 2305 Bronchial Washings Right Middle Lobe Fungal Smear - Final Resulted 11/11/16 2305 Bronchial Washings Right Middle Lobe Fungal Smear - Final Resulted 11/11/16 2305 Bronchial Washings Left Lobe Fungal Smear - Final Resulted 11/11/16 2305 Bronchial Washings Right Upper Lobe Gram Stain - Final Complete 11/11/16 2305 Bronchial Washings Right Upper Lobe Gram Stain - Final Complete 11/11/16 2305 Bronchial Washings Left Lobe Acid Fast Stain - Final Resulted 11/11/16 1540 Sputum Expectorated Sputum Gram Stain - Final Complete 11/11/16 1536 Sputum Expectorated Sputum Last 24 Hours Test 11/16/16 11:04 11/16/16 17:03 11/16/16 20:21 11/17/16 05:18 Bedside Glucose 148 mg/dl 142 mg/dl 137 mg/dl White Blood Count K/uL Red Blood Count M/uL Hemoglobin g/dL Hematocrit % Mean Corpuscular Volume fL Mean Corpuscular Hemoglobin pg Mean Corpuscular Hemoglobin Concent g/dl Platelet Count K/uL Mean Platelet Volume fL Neutrophils (%) (Auto) % Lymphocytes (%) (Auto) % RDW Standard Deviation fL RDW Coefficient of Variation % Random Vancomycin Level 21.8 mcg/ml Test 11/17/16 06:23 11/17/16 06:32 11/17/16 06:34 11/17/16 08:25 White Blood Count 13.45 K/uL Red Blood Count 2.98 M/uL Hemoglobin 8.4 g/dL Hematocrit 26.1 % Mean Corpuscular Volume 87.6 fL Mean Corpuscular Hemoglobin 28.2 pg Mean Corpuscular Hemoglobin Concent 32.2 g/dl Platelet Count 188 K/uL Mean Platelet Volume 9.1 fL Neutrophils (%) (Auto) 92.9 % Lymphocytes (%) (Auto) 2.0 % Monocytes (%) (Auto) 3.5 % Eosinophils (%) (Auto) 0.5 % Basophils (%) (Auto) 0.0 % Neutrophils # (Auto) 12.49 K/uL Lymphocytes # (Auto) 0.27 K/uL Monocytes # (Auto) 0.47 K/uL Eosinophils # (Auto) 0.07 K/uL Basophils # (Auto) 0.00 K/uL RDW Standard Deviation 55.2 fL RDW Coefficient of Variation 17.4 % Immature Granulocyte % (Auto) 1.1 % Immature Granulocyte # (Auto) 0.15 K/uL Large Platelets 1+ Basophilic Stippling 1+ Sodium Level 142 mmol/L Potassium Level 2.5 mmol/L Chloride Level 100 mmol/L Carbon Dioxide Level 37 mmol/L Anion Gap 6.0 mmol/L Blood Urea Nitrogen 64 mg/dl Creatinine 1.50 mg/dl Est Creatinine Clear Calc Drug Dose 32.3 ml/min Estimated GFR () 52.4 Estimated GFR (Non- 45.2 BUN/Creatinine Ratio 42.8 Random Glucose 129 mg/dl Calcium Level 8.4 mg/dl Phosphorus Level 3.3 mg/dl Magnesium Level 2.2 mg/dl Bedside Glucose 136 mg/dl Bedside Hemoglobin 8.2 g/dl Bedside Hematocrit 24 % Bedside Blood Gas pH (LAB) 7.33 Bedside Blood Gas pCO2 (LAB) 64 mmHg Bedside Blood Gas pO2 (LAB) 68 mmHg Bedside Blood Gas HCO3 (LAB) 34 meq/L Bedside Blood Gas Total CO2 36 mEq/l Bedside Blood Gas Base Excess (LAB) 8.0 meq/L Bedside Blood Gas O2 Saturation 91.0 % Bedside Sodium 139 mEq/L Bedside Potassium 2.3 mEq/L Test 11/17/16 10:15 Assessment and Plan (1) Bilateral pneumonia Assessment & Plan: ? infectious cause of progression on lung cancer. all cultures negative here. IGRA negative, legionella antigen negative. He has received > 7 days emperic broad spectrum abx for suspected pna. He has no + micro to direct therapy. He now has increased creat which is likely multifactorial but certainly abx could be playing a role. My suggestion at this point is to stop abx as he has received > 7 days of therapy. Per critical care notes, family would like additional days. I do not know if this would be beneficial. will stop vanco and tmp at this time as these could be causing increase in creat. no gnr identified, could stop zosyn as well. If family would like to continue with abx, could continue with renal dosed levaquin for potential of atypical infection but he has had several days with no meaningful recovery, I am ultimately in agreement with comfort measures. (2) Severe sepsis with acute organ dysfunction (3) Lung cancer
[2016-11-17] MEDS ORDERED: CALCIUM GLUCONATE 10% 1,000 MG in SODIUM CHLORIDE 0.9% 50ML 50 ML IV ONE (10:45)
[2016-11-17] MEDS: PANTOprazole INJ 40 MG in SYRINGE 0 ML IV SCH (10:50)
--- NOTE | 2016-11-17 11:06 | Palliative Care Consultation ---
Consultation Date of Consultation: Nov 17, 2016. Requesting Physician: Dr. Sykes Reason for Consultation: Goals of care History of Present Illness This 76 year old male patient presented to [facility] from [facility] six days ago with acute hypoxic respiratory failure with a history non-small cell carcinoma of the lung. History obtained from record as the patient is sedated/ventilated. This patient finished combo chemotherapy and radiation therapy in September 2016. Approximately 2 weeks ago he had a follow up staging CT of the chest that showed some bilateral patchy infiltrates suggesting pneumonia, partial radiation therapy response of the right lung, no change in mediastinal lymphadenopathy, and no progression of the cancer. At that time his oncologist Dr. Tinoco started him on a 10 day course of antibiotics and Ventolin and Mucinex. At the time of his CT he had a mild cough but no fevers and his breathing was stable and he had a normal appetite. He completed the 10 days of antibiotics and actually his cough improved. However, two days before he went to [facility], he developed high grade fevers, worsening cough, decreased appetite and worsening shortness of breath. He presented to the ED at [facility] on 11/10/16 with hypoxia, tachycardia and tachypnea. His WBC was 11 with 90% neutrophils, renal function and electrolytes stable. His Lactic acid was 2.1. CXR showed bilateral patchy infiltrates suggesting pneumonia. He required a NRB mask in the ED and initially he was supposed to come to [facility] but transport could not be arranged so he was admitted to the floor. He was started on Cefepime and Vancomycin after blood and urine cultures obtained. Next day, he was still requiring a NRB and saturations were 90-92%. WBC went up to 15 with 97% neutrophils. BMP remained unremarkable. He was then transferred to [facility]. Once here, respiratory failure continued to worsen, requiring bipap then eventually requiring intubation. He developed a right pneumothorax and had a chest tube placed on 11/14/16. He has also developed multi-system organ failure and now has essentially no chance of recovery. He remains intubated (ventilator day 6), sedated on propofol, on IV levophed for blood pressure support, and other acute problems such as acute kidney injury, new onset atrial fibrillation (currently NSR, but afib recurrent), s/p NSTEMI, anemia, and malnutrition with an albumin of 1.3. There have been many lengthy discussions with the family including patient's , daughter Kera, son-in-law Peng, and patient's son regarding very poor prognosis and goals of care. A few days ago, the family was awaiting the son to arrive from [place], and after he arrived they collectively decided to make the patient a DNR/DNI. However, they were still unsure of how long they wanted to continue aggressive treatment vs. convert to comfort measures only. Yesterday, per Dr. Adams' and Dr. Cruz's progress notes, the patient's condition an prognosis were very clearly discussed with the family and they now understand that there is no chance of recovery. The family was going to further discuss and make a decision. Palliative care consulted to assist in establishing goals of care and provide support to the family. I met with the patient's son-in-law in room 107. Patient is currently ventilated and sedated, obtunded at this time. Son-in-law, Peng, states that the family has made a decision and has a plan. He stated that after yesterday's discussions with the physicians, the family made the decision to withdraw care and convert patient to comfort measures only in order to allow natural . The family was very pleased that yesterday the patient was able to attempt communication through finger tracing and writing and was able to "say a few last things." However, according to [place] folk customs, a few things needed to be put in order and planned out before the patient dies. The family is planning on withdrawing care around 7pm tonight. I discussed at length with the son-in-law about the process of comfort measures only and some things to possibly expect. Past Medical/Surgical History Medical History: Non-small cell lung carcinoma Arthritis Anemia BPH Bilateral cataract Social History Smoking Status: Former Smoker History of Alcohol Use: No Marital Status: Occupation Status: retired Review of Systems unable to obtain, patient obtunded on ventilator Allergies Coded Allergies: Finasteride (Verified Adverse Reaction, Unknown, BREAST GROWTH, 09/10/16) Medications Current Inpatient Medications Medications (Trade) Dose Ordered Sig/Cindy Route Start Time Stop Time Status Last Admin Dose Admin Acetaminophen (Tylenol Tab) 650 mg Q4H PRN PO 11/11/16 14:00 12/11/16 13:59 Ondansetron HCl (Zofran Inj) 4 mg Q6H PRN IV 11/11/16 14:00 12/11/16 13:59 11/12/16 10:56 4 MG Piperacillin Sod/ Tazobactam Sod (Consult) 1 ea UD PRN N/A 11/11/16 14:30 12/11/16 14:29 Vancomycin HCl 1 ea 1 ea UD PRN N/A 11/11/16 14:30 12/11/16 14:29 Piperacillin Sod/ Tazobactam Sod/ Dextrose (Zosyn Iv/D5 100ml) 115 ml @ 28.75 mls/ hr Q8H IV 11/11/16 22:00 11/18/16 21:59 11/17/16 06:06 28.75 MLS/HR Insulin Aspart (novoLOG ASPART) SLIDING SCALE G... ACHS SC 11/11/16 16:15 12/11/16 16:14 11/11/16 18:26 5 UNITS Glucose (Glucose 40% Gel) 15-30 GRAMS 15 GRAMS... UD PRN PO 11/11/16 16:15 12/11/16 16:14 Glucose (Glucose Chew Tab) 4-8 Tablets 4 Tabl... UD PRN PO 11/11/16 16:15 12/11/16 16:14 Dextrose (Dextrose 50% 50ML Syringe) 25-50ML OF 50% DW IV FOR... UD PRN IV 11/11/16 16:15 12/11/16 16:14 Glucagon (Glucagon Inj) 1 mg UD PRN SQ 11/11/16 16:15 12/11/16 16:14 Miscellaneous Information 1 ea 1 ea UD N/A 11/11/16 19:09 12/11/16 19:08 Fentanyl Citrate 250 ml @ 0 mls/hr Q0M PRN IV 11/11/16 22:45 11/25/16 22:44 11/17/16 01:39 30 MLS/HR Norepinephrine Bitartrate/ Dextrose (Levophed Inj/ D5W 500ml) 508 ml @ 0 mls/hr Q0M PRN IV 11/11/16 22:33 12/11/16 22:32 11/16/16 23:49 24.4 MLS/HR Chlorhexidine Gluconate (Peridex Oral Soln) 15 ml BID MT 11/12/16 09:00 12/12/16 08:59 11/17/16 07:38 15 ML Trimethoprim/ Sulfamethoxazole (Septra Ds 800/ 160MG Tab) 1 tab Q12 PO 11/12/16 09:00 11/19/16 08:59 11/17/16 07:37 1 TAB Ipratropium [place] (Atrovent Hfa Inhaler) 4 puffs QIDR INH 11/12/16 08:00 12/12/16 07:59 11/16/16 20:17 4 PUFFS Albuterol 4 puffs 4 puffs QIDR INH 11/12/16 08:00 12/12/16 07:59 11/16/16 20:17 4 PUFFS Pantoprazole Sodium/Syringe (Protonix Inj/ Syringe) 10 ml @ 5 mls/min DAILY@11 IV 11/12/16 11:00 12/12/16 10:59 11/16/16 09:08 5 MLS/MIN Multivitamins Therapeutic (Cerovite Liquid) 15 ml QAM PO 11/13/16 10:00 12/13/16 09:59 11/17/16 07:37 15 ML Docusate Sodium (coLACE SYRUP) 100 mg BID PO 11/13/16 21:00 12/13/16 20:59 11/17/16 07:37 100 MG Aspirin (Aspirin Chew) 81 mg DAILY NG 11/14/16 09:00 12/14/16 08:59 11/17/16 07:37 81 MG Enteral Nutritional Formula (Peptamen Intense VHP) 1,000 ml UD OG 11/13/16 15:30 12/13/16 15:29 11/16/16 17:15 1,000 ML Sterile Water 1 ea 1 ea Q4 NG 11/13/16 20:00 12/13/16 19:59 11/17/16 07:38 1 EA Diltiazem HCl/ Dextrose (Cardizem Inj/D5 100ml) 125 ml @ 0 mls/hr Q0M PRN IV 11/13/16 22:30 12/13/16 22:29 11/16/16 03:40 10 MLS/HR Haloperidol Lactate (Haldol Inj) 5 mg Q6H IV 11/14/16 10:00 12/14/16 09:59 11/15/16 16:26 5 MG Heparin Sodium (Porcine) (Heparin Sq 5000 Unit/0.5ml) 5,000 unit Q12 SQ 11/14/16 21:00 12/14/16 20:59 11/17/16 07:44 5,000 UNIT Propofol 1 dose 1 dose UD PRN IV 11/15/16 01:45 11/18/16 01:44 11/17/16 01:38 1 DOSE Furosemide/Syringe (Lasix Inj/ Syringe) 8 ml @ 4 mls/min BID17 IV 11/15/16 09:00 12/15/16 08:59 11/17/16 07:43 4 MLS/MIN Fentanyl Citrate (Fentanyl Inj) 50 mcg Q2H PRN IV 11/15/16 14:00 11/29/16 13:59 11/16/16 22:19 50 MCG Senna (Senokot Syrup) 8.8 mg QAM PO 11/16/16 09:00 12/16/16 08:59 11/17/16 07:37 8.8 MG Bisacodyl (Dulcolax Supp) 10 mg DAILY PRN [place] 11/15/16 12:45 12/15/16 12:44 Levofloxacin 1 ea 1 ea UD PRN N/A 11/15/16 14:45 12/15/16 14:44 Levofloxacin 750 mg/Prmx 150 ml @ 100 mls/hr Q2D@1700 IV 11/16/16 17:00 11/18/16 23:59 11/16/16 17:15 100 MLS/HR Potassium Chloride/Prmx (Kcl 20 Meq / Wtr/Premixed Water) 100 ml @ 50 mls/hr Q2H IV 11/17/16 08:30 11/17/16 14:29 11/17/16 08:36 50 MLS/HR Physical Exam Date Time Temp Pulse Resp B/P Pulse Ox O2 Delivery O2 Flow Rate FiO2 11/17/16 08:00 37.8 109 27 112/52 92 Mechanical Ventilator 70 105/47 11/17/16 08:00 Mechanical Ventilator 70 11/17/16 08:00 70 11/17/16 07:40 70 11/17/16 06:00 118 27 94/50 94 Mechanical Ventilator 70 103/48 11/17/16 05:30 136 27 90/51 94 Mechanical Ventilator 70 109/51 11/17/16 05:19 70 11/17/16 05:00 122 26 98/52 97 Mechanical Ventilator 70 105/49 11/17/16 04:30 121 26 102/58 97 Mechanical Ventilator 80 102/49 11/17/16 04:00 100 11/17/16 04:00 Mechanical Ventilator 80 11/17/16 04:00 36.6 128 26 102/62 97 Mechanical Ventilator 80 98/44 11/17/16 03:30 97 26 100/52 98 Mechanical Ventilator 80 106/47 11/17/16 03:00 117 26 103/59 98 Mechanical Ventilator 90 101/46 11/17/16 02:30 107 26 98/56 98 Mechanical Ventilator 90 97/47 11/17/16 02:05 90 11/17/16 02:00 112 26 98/50 99 Mechanical Ventilator 100 92/43 11/17/16 01:30 112 26 101/52 99 Mechanical Ventilator 100 88/37 11/17/16 01:00 118 26 117/68 99 Mechanical Ventilator 100 105/40 11/17/16 00:30 120 27 122/69 98 Mechanical Ventilator 100 113/43 11/17/16 00:15 15 94/53 Mechanical Ventilator 100 89/37 11/17/16 00:01 100 11/17/16 00:01 Mechanical Ventilator 100 11/17/16 00:00 36.8 112 26 102/59 98 Mechanical Ventilator 100 105/39 11/16/16 23:30 110 28 111/56 97 Mechanical Ventilator 100 97/36 11/16/16 23:19 100 11/16/16 23:01 116 27 102/41 96 Mechanical Ventilator 100 119/58 11/16/16 22:30 99 27 87/34 93 Mechanical Ventilator 100 90/45 11/16/16 22:25 97 26 79/38 93 Mechanical Ventilator 100 64/25 11/16/16 22:00 137 31 93/55 94 Mechanical Ventilator 100 94/43 11/16/16 21:32 139 31 97/55 94 Mechanical Ventilator 100 95/45 11/16/16 21:00 140 35 107/61 95 Mechanical Ventilator 100 103/48 11/16/16 20:23 100 11/16/16 20:00 142 32 108/58 96 Mechanical Ventilator 100 105/51 11/16/16 20:00 100 11/16/16 20:00 Mechanical Ventilator 100 11/16/16 19:47 115 34 111/47 94 Mechanical Ventilator 100 100/55 11/16/16 19:30 120 30 106/55 96 Mechanical Ventilator 100 11/16/16 18:30 121 27 117/55 95 Mechanical Ventilator 100 11/16/16 18:01 117 32 112/49 95 Mechanical Ventilator 100 11/16/16 17:48 100 11/16/16 17:00 91 29 130/52 96 Mechanical Ventilator 100 11/16/16 16:01 36.4 89 30 129/52 95 Mechanical Ventilator 100 11/16/16 16:00 100 11/16/16 16:00 Mechanical Ventilator 100 11/16/16 15:00 91 33 131/54 94 Mechanical Ventilator 100 11/16/16 14:53 100 11/16/16 14:01 91 33 130/53 95 Mechanical Ventilator 100 115/51 11/16/16 13:00 86 30 133/55 94 Mechanical Ventilator 100 11/16/16 12:00 86 31 132/55 94 Mechanical Ventilator 100 115/47 11/16/16 12:00 100 11/16/16 12:00 Mechanical Ventilator 100 11/16/16 11:38 100 11/16/16 11:00 36.6 88 32 136/57 92 Mechanical Ventilator 100 11/16/16 10:11 100 11/16/16 10:01 90 31 117/51 95 Mechanical Ventilator 100 General Appearance: no apparent distress, + thin Neck: no JVD Respiratory: no respiratory distress, no accessory muscle use, + pertinent finding (on mechanical ventilator) Cardiovascular: regular rate, rhythm Abdomen: + pertinent finding (tube feedings currently shut off as pressors were restarted) Neurologic/Psychiatric: + pertinent finding (obtunded, sedated with propofol) Laboratory Results Last 24 Hours Test 11/16/16 11:04 11/16/16 17:03 11/16/16 20:21 11/17/16 05:18 Bedside Glucose 148 mg/dl 142 mg/dl 137 mg/dl White Blood Count K/uL Red Blood Count M/uL Hemoglobin g/dL Hematocrit % Mean Corpuscular Volume fL Mean Corpuscular Hemoglobin pg Mean Corpuscular Hemoglobin Concent g/dl Platelet Count K/uL Mean Platelet Volume fL Neutrophils (%) (Auto) % Lymphocytes (%) (Auto) % RDW Standard Deviation fL RDW Coefficient of Variation % Random Vancomycin Level 21.8 mcg/ml Test 11/17/16 06:23 11/17/16 06:32 11/17/16 06:34 11/17/16 08:12 White Blood Count 13.45 K/uL Red Blood Count 2.98 M/uL Hemoglobin 8.4 g/dL Hematocrit 26.1 % Mean Corpuscular Volume 87.6 fL Mean Corpuscular Hemoglobin 28.2 pg Mean Corpuscular Hemoglobin Concent 32.2 g/dl Platelet Count 188 K/uL Mean Platelet Volume 9.1 fL Neutrophils (%) (Auto) 92.9 % Lymphocytes (%) (Auto) 2.0 % Monocytes (%) (Auto) 3.5 % Eosinophils (%) (Auto) 0.5 % Basophils (%) (Auto) 0.0 % Neutrophils # (Auto) 12.49 K/uL Lymphocytes # (Auto) 0.27 K/uL Monocytes # (Auto) 0.47 K/uL Eosinophils # (Auto) 0.07 K/uL Basophils # (Auto) 0.00 K/uL RDW Standard Deviation 55.2 fL RDW Coefficient of Variation 17.4 % Immature Granulocyte % (Auto) 1.1 % Immature Granulocyte # (Auto) 0.15 K/uL Large Platelets 1+ Basophilic Stippling 1+ Sodium Level 142 mmol/L Potassium Level 2.5 mmol/L Chloride Level 100 mmol/L Carbon Dioxide Level 37 mmol/L Anion Gap 6.0 mmol/L Blood Urea Nitrogen 64 mg/dl Creatinine 1.50 mg/dl Est Creatinine Clear Calc Drug Dose 32.3 ml/min Estimated GFR () 52.4 Estimated GFR (Non- 45.2 BUN/Creatinine Ratio 42.8 Random Glucose 129 mg/dl Calcium Level 8.4 mg/dl Phosphorus Level 3.3 mg/dl Magnesium Level 2.2 mg/dl Bedside Glucose 136 mg/dl Test 11/17/16 08:25 Bedside Hemoglobin 8.2 g/dl Bedside Hematocrit 24 % Bedside Blood Gas pH (LAB) 7.33 Bedside Blood Gas pCO2 (LAB) 64 mmHg Bedside Blood Gas pO2 (LAB) 68 mmHg Bedside Blood Gas HCO3 (LAB) 34 meq/L Bedside Blood Gas Total CO2 36 mEq/l Bedside Blood Gas Base Excess (LAB) 8.0 meq/L Bedside Blood Gas O2 Saturation 91.0 % Bedside Sodium 139 mEq/L Bedside Potassium 2.3 mEq/L Assessment & Plan Palliative Performance Scale: 10 % Problem list: Acute respiratory failure Non-small cell lung carcinoma s/p chemo & radiation Right pneumothorax with right sided chest tube NSTEMI, EF 40% New onset atrial fibrillation Acute kidney injury Anemia Malnutrition Multi-system organ failure with very poor prognosis Goals of care Palliative care plan: Spoke with patient's son in law, Peng, at bedside. Updated Dr. Sykes on tentative plan as well. -Per the son-in-law, plan is to convert patient to comfort measures only this evening when the family is here. Of course this will be confirmed with the patient's and children when they are here. They are going to call me and/ or speak with Dr. Sykes when they arrive. -Recommend starting morphine infusion prior to extubation. Also would order glycopyrrolate 0.2mg IV Q4h PRN secretions. -Cultural concerns: Patient must be dressed in new clothing after -- as far as I know this will be done by the family. Must be buried within 72 hours of , so family is contacting homes and securing burial plot. The patient's may not want to be here during the actual passing of the patient. Family who would like to be present are the son, daughter and son-in- law. Thank you kindly for this consult. I will follow as needed.
[2016-11-17] MEDS ORDERED: MINERAL OIL 30 ML UDC PO ONE (11:15)
[2016-11-17 12:18] LABS: ISTAT ARTERIAL BLOOD GAS HCO3 27 meq/L (19-24); ISTAT ARTERIAL BLOOD GAS PCO2 74 mmHg (35-46); ISTAT ARTERIAL BLOOD GAS PO2 85 mmHg (80-95); ISTAT ARTERIAL BLOOD GAS pH 7.16 (7.35-7.45); ISTAT CARBON DIOXIDE 29 mEq/l (24-31)
[2016-11-17 12:20] LABS: ISTAT ALLEN TEST ACCEPTABLE; ISTAT DELIVERY SYSTEM Ventilator; ISTAT SAMPLE TYPE ARTERIAL; ISTAT SITE Art Line
[2016-11-17 12:21] LABS: ISTAT PEEP 15; ISTAT RATE 21; ISTAT SPO2 94 %; VE 9.2; Vt 450
[2016-11-17 12:22] LABS: ISTAT ARTERIAL BLOOD GAS PCO2 85 mmHg (35-46); ISTAT ARTERIAL BLOOD GAS PO2 106 mmHg (80-95); ISTAT ARTERIAL BLOOD GAS pH 7.07 (7.35-7.45)
[2016-11-17 12:23] LABS: ISTAT ARTERIAL BLOOD GAS HCO3 25 meq/L (19-24); ISTAT CARBON DIOXIDE 27 mEq/l (24-31); ISTAT SAMPLE TYPE ARTERIAL
[2016-11-17 12:24] LABS: ISTAT DELIVERY SYSTEM Ventilator; ISTAT PEEP 15; ISTAT RATE 24; ISTAT SITE Art Line; ISTAT SPO2 97 %; VE 8.8
[2016-11-17 12:25] LABS: ISTAT ARTERIAL BLOOD GAS HCO3 24 meq/L (19-24); ISTAT ARTERIAL BLOOD GAS PCO2 59 mmHg (35-46); ISTAT ARTERIAL BLOOD GAS PO2 82 mmHg (80-95); ISTAT ARTERIAL BLOOD GAS pH 7.22 (7.35-7.45); ISTAT CARBON DIOXIDE 26 mEq/l (24-31); ISTAT DELIVERY SYSTEM Ventilator; ISTAT SAMPLE TYPE ARTERIAL; ISTAT SITE Art Line
[2016-11-17 12:26] LABS: ISTAT PEEP 15; ISTAT RATE 26; ISTAT SPO2 97 %; VE 12.6; Vt 420
[2016-11-17 12:26] LABS: ISTAT ARTERIAL BLOOD GAS pH 7.25 (7.35-7.45)
[2016-11-17 12:27] LABS: ISTAT ARTERIAL BLOOD GAS HCO3 27 meq/L (19-24); ISTAT ARTERIAL BLOOD GAS PCO2 62 mmHg (35-46); ISTAT ARTERIAL BLOOD GAS PO2 64 mmHg (80-95); ISTAT CARBON DIOXIDE 29 mEq/l (24-31); ISTAT DELIVERY SYSTEM Ventilator; ISTAT RATE 26; ISTAT SAMPLE TYPE ARTERIAL; ISTAT SITE Art Line
[2016-11-17 12:28] LABS: ISTAT PEEP 13; ISTAT SPO2 95 %; PRESSURE 738.8; VE 12.9; Vt 430
--- NOTE | 2016-11-17 12:40 | Pulmonology Progress Note ---
Pulmonary Progress Note Date of Service Nov 17, 2016. Attending Dr. Phipps Subjective Unable to obtain ROS secondary to critical illness, intubation, and sedation/ analgesia. Objective 76-yo male with h/o RUL T3N3M0 -IIIb adenocarcinoma of [facility] failure/ARDS/sepsis. Today: - WBC: 13.45/8.4/26.1 - AB.33/64-70%/34 - K: 2.3, Cr: elevated 1.5 - TB: negative, no growth BAL 11/11 - PF ratio: 97.14 - Vent Data: PRVC - i.e: 1:2.1, PEEP: 13. Peak: 35, Plateau: 32, TV: 430, MVolume: 10.6, M. vent: 11.2 - Intention for continued medical management today and anticipate transition to comfort care with arrival of family this evening - discussed with primary service Physical Exam: Constitutional: Chronically ill appearing cachectic male lying in hospital bed. Intubated. No acute distress. HEENT: NGT/ETT with secretions in tubing Neck: Trachea midline. Right CVC in place Respiratory: Overbreathing the ventilator. Bilateral coarse rales most pronounced lateral hill. Diminished BS at apices. No wheeze. No clubbing or cyanosis. Cardiovascular: Rapid rate, regular rhythm. Warm peripherally. Abdomen: soft, active bowel sounds MSK/Extremities: Moving and developed symmetrically. + bilateral UE edema. Neurologic: Sedated. Agitated post repositioning and suctioning. Assessment & Plan 76-yo male with IIIb adenocarcinoma of the lung admitted with ARDS with clinical course complicated by sepsis, right pneumothorax, NSTEMI, supraventricular atrial tachycardia, underlying malnutrition, and NICOLE. Poor clinical prognosis with ongoing discussion with family regarding transition to comfort measures in progress: 1. Continue permissive hypercarbia (pH goal +/= 7.3 - 7.40) 2. pPlat Q4-hours: goal < 30, and adjust Tv PRN 3. O2 goal: goal 89-94% 4. Continue nutrition at minimum trickle feed as residuals tolerate 5. Continued sedation for ventilatory synchrony and patient comfort - consideration lorazepam PRN vs Precedex gtt for end-of-life family visits 6. Will continue to follow along today as goals of care discussion progresses Case discussed with Dr. Phipps Patient and chart reviewed and plan agreed upon. Data Medications: Current Inpatient Medications Medications (Trade) Dose Ordered Sig/Cindy Route Start Time Stop Time Status Last Admin Dose Admin Acetaminophen (Tylenol Tab) 650 mg Q4H PRN PO 11/11/16 14:00 12/11/16 13:59 Ondansetron HCl (Zofran Inj) 4 mg Q6H PRN IV 11/11/16 14:00 12/11/16 13:59 11/12/16 10:56 4 MG Insulin Aspart (novoLOG ASPART) SLIDING SCALE G... ACHS SC 11/11/16 16:15 12/11/16 16:14 11/11/16 18:26 5 UNITS Glucose (Glucose 40% Gel) 15-30 GRAMS 15 GRAMS... UD PRN PO 11/11/16 16:15 12/11/16 16:14 Glucose (Glucose Chew Tab) 4-8 Tablets 4 Tabl... UD PRN PO 11/11/16 16:15 12/11/16 16:14 Dextrose (Dextrose 50% 50ML Syringe) 25-50ML OF 50% DW IV FOR... UD PRN IV 11/11/16 16:15 12/11/16 16:14 Glucagon 1 mg 1 mg UD PRN SQ 11/11/16 16:15 12/11/16 16:14 Fentanyl Citrate 250 ml @ 0 mls/hr Q0M PRN IV 11/11/16 22:45 11/25/16 22:44 11/17/16 10:38 15 MLS/HR Norepinephrine Bitartrate/ Dextrose (Levophed Inj/ D5W 500ml) 508 ml @ 0 mls/hr Q0M PRN IV 11/11/16 22:33 12/11/16 22:32 11/16/16 23:49 24.4 MLS/HR Chlorhexidine Gluconate (Peridex Oral Soln) 15 ml BID MT 11/12/16 09:00 12/12/16 08:59 11/17/16 07:38 15 ML Ipratropium [place] (Atrovent Hfa Inhaler) 4 puffs QIDR INH 11/12/16 08:00 12/12/16 07:59 11/16/16 20:17 4 PUFFS Albuterol 4 puffs 4 puffs QIDR INH 11/12/16 08:00 12/12/16 07:59 11/16/16 20:17 4 PUFFS Pantoprazole Sodium/Syringe (Protonix Inj/ Syringe) 10 ml @ 5 mls/min DAILY@11 IV 11/12/16 11:00 12/12/16 10:59 11/17/16 10:50 5 MLS/MIN Multivitamins Therapeutic (Cerovite Liquid) 15 ml QAM PO 11/13/16 10:00 12/13/16 09:59 11/17/16 07:37 15 ML Docusate Sodium (coLACE SYRUP) 100 mg BID PO 11/13/16 21:00 12/13/16 20:59 11/17/16 07:37 100 MG Aspirin (Aspirin Chew) 81 mg DAILY NG 11/14/16 09:00 12/14/16 08:59 11/17/16 07:37 81 MG Enteral Nutritional Formula (Peptamen Intense VHP) 1,000 ml UD OG 11/13/16 15:30 12/13/16 15:29 Future Hold 11/16/16 17:15 1,000 ML Sterile Water (Tube Feeding Water Flush) 1 ea Q4 NG 11/13/16 20:00 12/13/16 19:59 11/17/16 07:38 1 EA Heparin Sodium (Porcine) (Heparin Sq 5000 Unit/0.5ml) 5,000 unit Q12 SQ 11/14/16 21:00 12/14/16 20:59 11/17/16 07:44 5,000 UNIT Propofol 1 dose 1 dose UD PRN IV 11/15/16 01:45 11/18/16 01:44 11/17/16 10:39 1 DOSE Furosemide/Syringe (Lasix Inj/ Syringe) 8 ml @ 4 mls/min BID17 IV 11/15/16 09:00 12/15/16 08:59 Future Hold 11/17/16 07:43 4 MLS/MIN Fentanyl Citrate (Fentanyl Inj) 50 mcg Q2H PRN IV 11/15/16 14:00 11/29/16 13:59 11/16/16 22:19 50 MCG Senna (Senokot Syrup) 8.8 mg QAM PO 11/16/16 09:00 12/16/16 08:59 11/17/16 07:37 8.8 MG Bisacodyl (Dulcolax Supp) 10 mg DAILY PRN [place] 11/15/16 12:45 12/15/16 12:44 Levofloxacin 1 ea 1 ea UD PRN N/A 11/15/16 14:45 11/18/16 23:59 Levofloxacin 750 mg/Prmx 150 ml @ 100 mls/hr Q2D@1700 IV 11/16/16 17:00 11/18/16 23:59 11/16/16 17:15 100 MLS/HR Potassium Chloride/Prmx (Kcl 20 Meq / Wtr/Premixed Water) 100 ml @ 50 mls/hr Q2H IV 11/17/16 08:30 11/17/16 14:29 11/17/16 11:51 50 MLS/HR I & O: 24-Hour Column 11/17/16 08:00 Intake Total 3199 ml Output Total 5125 ml Balance -1926 ml Vital Signs: Date Time Temp Pulse Resp B/P Pulse Ox O2 Delivery O2 Flow Rate FiO2 11/17/16 11:35 70 11/17/16 10:00 114 31 105/58 93 Mechanical Ventilator 70 118/55 11/17/16 08:00 Mechanical Ventilator 70 11/17/16 08:00 37.8 109 27 112/52 92 Mechanical Ventilator 70 105/47 11/17/16 08:00 Mechanical Ventilator 70 11/17/16 08:00 70 11/17/16 07:40 70 11/17/16 06:00 118 27 94/50 94 Mechanical Ventilator 70 103/48 11/17/16 05:30 136 27 90/51 94 Mechanical Ventilator 70 109/51 11/17/16 05:19 70 11/17/16 05:00 122 26 98/52 97 Mechanical Ventilator 70 105/49 11/17/16 04:30 121 26 102/58 97 Mechanical Ventilator 80 102/49 11/17/16 04:00 100 11/17/16 04:00 Mechanical Ventilator 80 11/17/16 04:00 36.6 128 26 102/62 97 Mechanical Ventilator 80 98/44 11/17/16 03:30 97 26 100/52 98 Mechanical Ventilator 80 106/47 11/17/16 03:00 117 26 103/59 98 Mechanical Ventilator 90 101/46 11/17/16 02:30 107 26 98/56 98 Mechanical Ventilator 90 97/47 11/17/16 02:05 90 11/17/16 02:00 112 26 98/50 99 Mechanical Ventilator 100 92/43 11/17/16 01:30 112 26 101/52 99 Mechanical Ventilator 100 88/37 11/17/16 01:00 118 26 117/68 99 Mechanical Ventilator 100 105/40 11/17/16 00:30 120 27 122/69 98 Mechanical Ventilator 100 113/43 11/17/16 00:15 15 94/53 Mechanical Ventilator 100 89/37 11/17/16 00:01 100 11/17/16 00:01 Mechanical Ventilator 100 11/17/16 00:00 36.8 112 26 102/59 98 Mechanical Ventilator 100 105/39 11/16/16 23:30 110 28 111/56 97 Mechanical Ventilator 100 97/36 11/16/16 23:19 100 11/16/16 23:01 116 27 102/41 96 Mechanical Ventilator 100 119/58 11/16/16 22:30 99 27 87/34 93 Mechanical Ventilator 100 90/45 11/16/16 22:25 97 26 79/38 93 Mechanical Ventilator 100 64/25 11/16/16 22:00 137 31 93/55 94 Mechanical Ventilator 100 94/43 11/16/16 21:32 139 31 97/55 94 Mechanical Ventilator 100 95/45 11/16/16 21:00 140 35 107/61 95 Mechanical Ventilator 100 103/48 11/16/16 20:23 100 11/16/16 20:00 142 32 108/58 96 Mechanical Ventilator 100 105/51 11/16/16 20:00 100 11/16/16 20:00 Mechanical Ventilator 100 11/16/16 19:47 115 34 111/47 94 Mechanical Ventilator 100 100/55 11/16/16 19:30 120 30 106/55 96 Mechanical Ventilator 100 11/16/16 18:30 121 27 117/55 95 Mechanical Ventilator 100 11/16/16 18:01 117 32 112/49 95 Mechanical Ventilator 100 11/16/16 17:48 100 11/16/16 17:00 91 29 130/52 96 Mechanical Ventilator 100 11/16/16 16:01 36.4 89 30 129/52 95 Mechanical Ventilator 100 11/16/16 16:00 100 11/16/16 16:00 Mechanical Ventilator 100 11/16/16 15:00 91 33 131/54 94 Mechanical Ventilator 100 11/16/16 14:53 100 11/16/16 14:01 91 33 130/53 95 Mechanical Ventilator 100 115/51 11/16/16 13:00 86 30 133/55 94 Mechanical Ventilator 100 Laboratory Results: Last 24 Hours Test 11/16/16 17:03 11/16/16 20:21 11/17/16 05:18 11/17/16 06:23 Bedside Glucose 142 mg/dl 137 mg/dl White Blood Count K/uL 13.45 K/uL Red Blood Count M/uL 2.98 M/uL Hemoglobin g/dL 8.4 g/dL Hematocrit % 26.1 % Mean Corpuscular Volume fL 87.6 fL Mean Corpuscular Hemoglobin pg 28.2 pg Mean Corpuscular Hemoglobin Concent g/dl 32.2 g/dl Platelet Count K/uL 188 K/uL Mean Platelet Volume fL 9.1 fL Neutrophils (%) (Auto) % 92.9 % Lymphocytes (%) (Auto) % 2.0 % RDW Standard Deviation fL 55.2 fL RDW Coefficient of Variation % 17.4 % Random Vancomycin Level 21.8 mcg/ml Monocytes (%) (Auto) 3.5 % Eosinophils (%) (Auto) 0.5 % Basophils (%) (Auto) 0.0 % Neutrophils # (Auto) 12.49 K/uL Lymphocytes # (Auto) 0.27 K/uL Monocytes # (Auto) 0.47 K/uL Eosinophils # (Auto) 0.07 K/uL Basophils # (Auto) 0.00 K/uL Immature Granulocyte % (Auto) 1.1 % Immature Granulocyte # (Auto) 0.15 K/uL Large Platelets 1+ Basophilic Stippling 1+ Test 11/17/16 06:32 11/17/16 06:34 11/17/16 08:25 11/17/16 08:30 Sodium Level 142 mmol/L Potassium Level 2.5 mmol/L Chloride Level 100 mmol/L Carbon Dioxide Level 37 mmol/L Anion Gap 6.0 mmol/L Blood Urea Nitrogen 64 mg/dl Creatinine 1.50 mg/dl Est Creatinine Clear Calc Drug Dose 32.3 ml/min Estimated GFR () 52.4 Estimated GFR (Non- 45.2 BUN/Creatinine Ratio 42.8 Random Glucose 129 mg/dl Calcium Level 8.4 mg/dl Phosphorus Level 3.3 mg/dl Magnesium Level 2.2 mg/dl Bedside Glucose 136 mg/dl Bedside Hemoglobin 8.2 g/dl Bedside Hematocrit 24 % Bedside Blood Gas pH (LAB) 7.33 Bedside Blood Gas pCO2 (LAB) 64 mmHg Bedside Blood Gas pO2 (LAB) 68 mmHg Bedside Blood Gas HCO3 (LAB) 34 meq/L Bedside Blood Gas Total CO2 36 mEq/l Bedside Blood Gas Base Excess (LAB) 8.0 meq/L Bedside Blood Gas O2 Saturation 91.0 % Bedside Sodium 139 mEq/L Bedside Potassium 2.3 mEq/L Bedside Lactic Acid Arterial 1.19 mmol/L Test 11/17/16 10:29 11/17/16 11:50 Ionized Calcium 1.19 mmol/l Random Cortisol 63.38 mcg/dl Bedside Glucose 125 mg/dl
[2016-11-17] MEDS ORDERED: METOPROLOL TARTRATE 1 MG/ML VIAL ONE (13:44)
[2016-11-17] MEDS ORDERED: METOPROLOL TARTRATE 1 MG/ML VIAL IV STA (13:44)
--- NOTE | 2016-11-17 14:03 | Critical Care Progress Note ---
Critical Care Progress Note Date of Service Nov 17, 2016. ICU Day ICU Day Number: [address] Sykes Subjective Discussion was made with the family regarding ongoing care Currently the plan will be comfort measures this evening as multiple accommodations must be set prior to transitioning questions and concerns were addressed unable to complete ROS as the patient is intubated and sedated Objective General: not in acute distress, sedated and intubated Skin: no rashes noted, no suspicious lesions, no areas of inflammations/ lacerations/ erythema noted, chest tube right chest, subcutaneous emphysema noted CVS: S1/ S2 noted, no rubs/ murmurs noted RVS: coarse breath sounds throughout, diminished to bases Neck: inspection WNL, full ROM of neck ABD: BSx4 but hypoactive, minimal distention noted MSK: inspection of all limbs WNL, no swelling on palpation of joints NVS: sedated Lymph: No lymphadenopathy palpable Assessment & Plan 1. Acute hypoxemic respiratory failure with ARDS 2. 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 right pneumothorax status post chest tube 11/14/16- now minimal/ resolved 4. Afibb with RVR 5. Status post non ST segment elevation PR; EF 40% 6. NICOLE with unknown CKD 7. Anemia, stable 8. Severe hypokalemia NVS - haldol has been d/c for sedation and currently on fentanyl - plan is to transition to comfort measures this evening once the family has returned - appreciate palliative consult CVS - diltiazem d/c - levophed restarted overnight and running at 0.04 - Lactate and ABG - Lopressor prn for RVR - repeat EKG, intermediate accountant use of haldol; recheck QTc RVS - will maintain current settings - ABG (patient does have an arterial line) - continue to monitor respiratory status - 8- Sami chest tube currently in place GI - was on tube feedings but because Levophed restarted will hold the Peptamen - mineral oil - docusate - protonix IV daily FEN -PRP q 6 h - received 60meq KCL in am RENAL - Cr currently 1.5 - recheck Cr daily - d/c Lasix - monitor I&O ENDO - insulin Novolog - BSG AC HS ID - continue Levaquin - d/c Bactrim - if status changes and patient will not be put on comfort measures will contact ID to revisit case HEME - access right IJ - heparin BID Resident Physician Supervision Note: Dr. Velarde was resident physician during care of patient. I separately evaluated patient and did history and exam. I discussed the case with the resident and generally agree with the findings and plan. No significant rate control with diltiazem, discontinue diltiazem attempt to up titrating beta sammy. We'll continue to adjust electrolytes. Had extensive discussion with the family they're likely to withdraw care later on this evening. There'll be no escalation of care. We're attempting to take an account patient's family's goal luis wishes as he is [place]. Patient is critically ill due to ARDS, sepsis, lung cancer. I have personally spent 50 minutes of critical care time in the direct management of this patient. This is a life/limb threatening event. This includes time spent evaluating patient, direct bedside care, chart review, placing orders, interpretation of diagnostic studies, discussion with consultants, patient, and family members, as well as other required patient management activities. This time is exclusive of all separately billable procedures, and teaching time and separate from and in addition to any other critical care service time. Documented By: Chema Sykes DO Data Medications: Current Inpatient Medications Medications (Trade) Dose Ordered Sig/Cindy Route Start Time Stop Time Status Last Admin Dose Admin Acetaminophen (Tylenol Tab) 650 mg Q4H PRN PO 11/11/16 14:00 12/11/16 13:59 Ondansetron HCl (Zofran Inj) 4 mg Q6H PRN IV 11/11/16 14:00 12/11/16 13:59 11/12/16 10:56 4 MG Insulin Aspart (novoLOG ASPART) SLIDING SCALE G... ACHS SC 11/11/16 16:15 12/11/16 16:14 11/11/16 18:26 5 UNITS Glucose (Glucose 40% Gel) 15-30 GRAMS 15 GRAMS... UD PRN PO 11/11/16 16:15 12/11/16 16:14 Glucose (Glucose Chew Tab) 4-8 Tablets 4 Tabl... UD PRN PO 11/11/16 16:15 12/11/16 16:14 Dextrose (Dextrose 50% 50ML Syringe) 25-50ML OF 50% DW IV FOR... UD PRN IV 11/11/16 16:15 12/11/16 16:14 Glucagon 1 mg 1 mg UD PRN SQ 11/11/16 16:15 12/11/16 16:14 Fentanyl Citrate 250 ml @ 0 mls/hr Q0M PRN IV 11/11/16 22:45 11/25/16 22:44 11/17/16 10:38 15 MLS/HR Norepinephrine Bitartrate/ Dextrose (Levophed Inj/ D5W 500ml) 508 ml @ 0 mls/hr Q0M PRN IV 11/11/16 22:33 12/11/16 22:32 11/16/16 23:49 24.4 MLS/HR Chlorhexidine Gluconate (Peridex Oral Soln) 15 ml BID MT 11/12/16 09:00 12/12/16 08:59 11/17/16 07:38 15 ML Ipratropium [place] (Atrovent Hfa Inhaler) 4 puffs QIDR INH 11/12/16 08:00 12/12/16 07:59 11/16/16 20:17 4 PUFFS Albuterol 4 puffs 4 puffs QIDR INH 11/12/16 08:00 12/12/16 07:59 11/16/16 20:17 4 PUFFS Pantoprazole Sodium/Syringe (Protonix Inj/ Syringe) 10 ml @ 5 mls/min DAILY@11 IV 11/12/16 11:00 12/12/16 10:59 11/17/16 10:50 5 MLS/MIN Multivitamins Therapeutic (Cerovite Liquid) 15 ml QAM PO 11/13/16 10:00 12/13/16 09:59 11/17/16 07:37 15 ML Docusate Sodium (coLACE SYRUP) 100 mg BID PO 11/13/16 21:00 12/13/16 20:59 11/17/16 07:37 100 MG Aspirin (Aspirin Chew) 81 mg DAILY NG 11/14/16 09:00 12/14/16 08:59 11/17/16 07:37 81 MG Enteral Nutritional Formula (Peptamen Intense VHP) 1,000 ml UD OG 11/13/16 15:30 12/13/16 15:29 Future Hold 11/16/16 17:15 1,000 ML Sterile Water (Tube Feeding Water Flush) 1 ea Q4 NG 11/13/16 20:00 12/13/16 19:59 11/17/16 07:38 1 EA Heparin Sodium (Porcine) (Heparin Sq 5000 Unit/0.5ml) 5,000 unit Q12 SQ 11/14/16 21:00 12/14/16 20:59 11/17/16 07:44 5,000 UNIT Propofol 1 dose 1 dose UD PRN IV 11/15/16 01:45 11/18/16 01:44 11/17/16 10:39 1 DOSE Furosemide/Syringe (Lasix Inj/ Syringe) 8 ml @ 4 mls/min BID17 IV 11/15/16 09:00 12/15/16 08:59 Future Hold 11/17/16 07:43 4 MLS/MIN Fentanyl Citrate (Fentanyl Inj) 50 mcg Q2H PRN IV 11/15/16 14:00 11/29/16 13:59 11/16/16 22:19 50 MCG Senna (Senokot Syrup) 8.8 mg QAM PO 11/16/16 09:00 12/16/16 08:59 11/17/16 07:37 8.8 MG Bisacodyl (Dulcolax Supp) 10 mg DAILY PRN [place] 11/15/16 12:45 12/15/16 12:44 Levofloxacin 1 ea 1 ea UD PRN N/A 11/15/16 14:45 11/18/16 23:59 Levofloxacin 750 mg/Prmx 150 ml @ 100 mls/hr Q2D@1700 IV 11/16/16 17:00 11/18/16 23:59 11/16/16 17:15 100 MLS/HR Potassium Chloride/Prmx (Kcl 20 Meq / Wtr/Premixed Water) 100 ml @ 50 mls/hr Q2H IV 11/17/16 08:30 11/17/16 14:29 11/17/16 11:51 50 MLS/HR Metoprolol Tartrate (Lopressor Iv) 2.5 mg NOW STAT IV 11/17/16 13:44 11/17/16 13:45 UNV I & O: 24-Hour Column 11/17/16 08:00 Intake Total 3199 ml Output Total 5125 ml Balance -1926 ml Vital Signs: Date Time Temp Pulse Resp B/P Pulse Ox O2 Delivery O2 Flow Rate FiO2 11/17/16 12:00 70 11/17/16 12:00 Mechanical Ventilator 70 11/17/16 12:00 37.2 146 30 96/61 93 Mechanical Ventilator 70 102/51 11/17/16 11:35 70 11/17/16 10:00 114 31 105/58 93 Mechanical Ventilator 70 118/55 11/17/16 08:00 Mechanical Ventilator 70 11/17/16 08:00 37.8 109 27 112/52 92 Mechanical Ventilator 70 105/47 11/17/16 08:00 Mechanical Ventilator 70 11/17/16 08:00 70 11/17/16 07:40 70 11/17/16 06:00 118 27 94/50 94 Mechanical Ventilator 70 103/48 11/17/16 05:30 136 27 90/51 94 Mechanical Ventilator 70 109/51 11/17/16 05:19 70 11/17/16 05:00 122 26 98/52 97 Mechanical Ventilator 70 105/49 11/17/16 04:30 121 26 102/58 97 Mechanical Ventilator 80 102/49 11/17/16 04:00 100 11/17/16 04:00 Mechanical Ventilator 80 11/17/16 04:00 36.6 128 26 102/62 97 Mechanical Ventilator 80 98/44 11/17/16 03:30 97 26 100/52 98 Mechanical Ventilator 80 106/47 11/17/16 03:00 117 26 103/59 98 Mechanical Ventilator 90 101/46 11/17/16 02:30 107 26 98/56 98 Mechanical Ventilator 90 97/47 11/17/16 02:05 90 11/17/16 02:00 112 26 98/50 99 Mechanical Ventilator 100 92/43 11/17/16 01:30 112 26 101/52 99 Mechanical Ventilator 100 88/37 11/17/16 01:00 118 26 117/68 99 Mechanical Ventilator 100 105/40 11/17/16 00:30 120 27 122/69 98 Mechanical Ventilator 100 113/43 11/17/16 00:15 15 94/53 Mechanical Ventilator 100 89/37 11/17/16 00:01 100 11/17/16 00:01 Mechanical Ventilator 100 11/17/16 00:00 36.8 112 26 102/59 98 Mechanical Ventilator 100 105/39 11/16/16 23:30 110 28 111/56 97 Mechanical Ventilator 100 97/36 11/16/16 23:19 100 11/16/16 23:01 116 27 102/41 96 Mechanical Ventilator 100 119/58 11/16/16 22:30 99 27 87/34 93 Mechanical Ventilator 100 90/45 11/16/16 22:25 97 26 79/38 93 Mechanical Ventilator 100 64/25 11/16/16 22:00 137 31 93/55 94 Mechanical Ventilator 100 94/43 11/16/16 21:32 139 31 97/55 94 Mechanical Ventilator 100 95/45 11/16/16 21:00 140 35 107/61 95 Mechanical Ventilator 100 103/48 11/16/16 20:23 100 11/16/16 20:00 142 32 108/58 96 Mechanical Ventilator 100 105/51 11/16/16 20:00 100 11/16/16 20:00 Mechanical Ventilator 100 11/16/16 19:47 115 34 111/47 94 Mechanical Ventilator 100 100/55 11/16/16 19:30 120 30 106/55 96 Mechanical Ventilator 100 11/16/16 18:30 121 27 117/55 95 Mechanical Ventilator 100 11/16/16 18:01 117 32 112/49 95 Mechanical Ventilator 100 11/16/16 17:48 100 11/16/16 17:00 91 29 130/52 96 Mechanical Ventilator 100 11/16/16 16:01 36.4 89 30 129/52 95 Mechanical Ventilator 100 11/16/16 16:00 100 11/16/16 16:00 Mechanical Ventilator 100 11/16/16 15:00 91 33 131/54 94 Mechanical Ventilator 100 11/16/16 14:53 100 11/16/16 14:01 91 33 130/53 95 Mechanical Ventilator 100 115/51 Laboratory Results: Last 24 Hours Test 11/16/16 17:03 11/16/16 20:21 11/17/16 05:18 11/17/16 06:23 Bedside Glucose 142 mg/dl 137 mg/dl White Blood Count K/uL 13.45 K/uL Red Blood Count M/uL 2.98 M/uL Hemoglobin g/dL 8.4 g/dL Hematocrit % 26.1 % Mean Corpuscular Volume fL 87.6 fL Mean Corpuscular Hemoglobin pg 28.2 pg Mean Corpuscular Hemoglobin Concent g/dl 32.2 g/dl Platelet Count K/uL 188 K/uL Mean Platelet Volume fL 9.1 fL Neutrophils (%) (Auto) % 92.9 % Lymphocytes (%) (Auto) % 2.0 % RDW Standard Deviation fL 55.2 fL RDW Coefficient of Variation % 17.4 % Random Vancomycin Level 21.8 mcg/ml Monocytes (%) (Auto) 3.5 % Eosinophils (%) (Auto) 0.5 % Basophils (%) (Auto) 0.0 % Neutrophils # (Auto) 12.49 K/uL Lymphocytes # (Auto) 0.27 K/uL Monocytes # (Auto) 0.47 K/uL Eosinophils # (Auto) 0.07 K/uL Basophils # (Auto) 0.00 K/uL Immature Granulocyte % (Auto) 1.1 % Immature Granulocyte # (Auto) 0.15 K/uL Large Platelets 1+ Basophilic Stippling 1+ Test 11/17/16 06:32 11/17/16 06:34 11/17/16 08:25 11/17/16 08:30 Sodium Level 142 mmol/L Potassium Level 2.5 mmol/L Chloride Level 100 mmol/L Carbon Dioxide Level 37 mmol/L Anion Gap 6.0 mmol/L Blood Urea Nitrogen 64 mg/dl Creatinine 1.50 mg/dl Est Creatinine Clear Calc Drug Dose 32.3 ml/min Estimated GFR () 52.4 Estimated GFR (Non- 45.2 BUN/Creatinine Ratio 42.8 Random Glucose 129 mg/dl Calcium Level 8.4 mg/dl Phosphorus Level 3.3 mg/dl Magnesium Level 2.2 mg/dl Bedside Glucose 136 mg/dl Bedside Hemoglobin 8.2 g/dl Bedside Hematocrit 24 % Bedside Blood Gas pH (LAB) 7.33 Bedside Blood Gas pCO2 (LAB) 64 mmHg Bedside Blood Gas pO2 (LAB) 68 mmHg Bedside Blood Gas HCO3 (LAB) 34 meq/L Bedside Blood Gas Total CO2 36 mEq/l Bedside Blood Gas Base Excess (LAB) 8.0 meq/L Bedside Blood Gas O2 Saturation 91.0 % Bedside Sodium 139 mEq/L Bedside Potassium 2.3 mEq/L Bedside Lactic Acid Arterial 1.19 mmol/L Test 11/17/16 10:29 11/17/16 11:50 Ionized Calcium 1.19 mmol/l Random Cortisol 63.38 mcg/dl Bedside Glucose 125 mg/dl
[2016-11-17] MEDS ORDERED: METOPROLOL TARTRATE 1 MG/ML VIAL IV PRN (14:15)
--- NOTE | 2016-11-17 14:34 | Progress Note ---
Subjective Date of Service: Nov 17, 2016. Subjective Pt evaluation today including: conversation w/ family (son-in-law at bedside), physical exam, chart review, lab review, review of studies, review of inpatient medication list remains intubated and sedated on fentanyl and propofol drips maintenance ivf Problem List Medical Problems: (1) Anemia Status: Acute (2) Chronic subdural hematoma Status: Acute (3) Lung cancer Status: Acute Review of Systems All Other Systems: Reviewed and Negative Medications Acetaminophen (Tylenol Tab) 650 mg Q4H PRN PO; Start 11/11/16 at 14:00; Stop at 13:59 Albuterol 4 puffs 4 puffs QIDR INH Last administered on 11/16/16 20:17; Admin Dose 4 PUFFS; Start 11/12/16 at 08:00; Stop 12/12/16 at 07:59 Aspirin (Aspirin Chew) 81 mg DAILY NG Last administered on 11/17/16 07:37; Admin Dose 81 MG; Start 11/14/16 at 09:00; Stop 12/14/16 at 08:59 Bisacodyl (Dulcolax Supp) 10 mg DAILY PRN WI; Start 11/15/16 at 12:45; Stop 06/23 at 12:44 Chlorhexidine Gluconate (Peridex Oral Soln) 15 ml BID MT Last administered on 07:38; Admin Dose 15 ML; Start 11/12/16 at 09:00; Stop 12/12/16 at 08:59 Dextrose (Dextrose 50% 50ML Syringe) 25-50ML OF 50% DW IV FOR... UD PRN IV; Start 11/11/16 at 16:15; Stop 12/11/16 at 16:14 Docusate Sodium (coLACE SYRUP) 100 mg BID PO Last administered on 11/17/16 07: 37; Admin Dose 100 MG; Start 11/13/16 at 21:00; Stop 12/13/16 at 20:59 Enteral Nutritional Formula (Peptamen Intense VHP) 1,000 ml UD OG Last administered on 11/16/16 17:15; Admin Dose 1,000 ML; Start 11/13/16 at 15:30; Stop 12/13/16 at 15:29; Status Future Hold Fentanyl Citrate 250 ml @ 0 mls/hr Q0M PRN IV Last administered on 11/17/16 10: 38; Admin Dose 15 MLS/HR; Start 11/11/16 at 22:45; Stop 11/25/16 at 22:44 Fentanyl Citrate (Fentanyl Inj) 50 mcg Q2H PRN IV Last administered on 22:19; Admin Dose 50 MCG; Start 11/15/16 at 14:00; Stop 11/29/16 at 13:59 Furosemide/Syringe (Lasix Inj/ Syringe) 8 ml @ 4 mls/min BID17 IV Last administered on 11/17/16 07:43; Admin Dose 4 MLS/MIN; Start 11/15/16 at 09:00; Stop 12/15/16 at 08:59; Status Future Hold Glucagon 1 mg 1 mg UD PRN SQ; Start 11/11/16 at 16:15; Stop 12/11/16 at 16:14 Glucose (Glucose 40% Gel) 15-30 GRAMS 15 GRAMS... UD PRN PO; Start 11/11/16 at 16:15; Stop 12/11/16 at 16:14 Glucose (Glucose Chew Tab) 4-8 Tablets 4 Tabl... UD PRN PO; Start 11/11/16 at 16 :15; Stop 12/11/16 at 16:14 Heparin Sodium (Porcine) (Heparin Sq 5000 Unit/0.5ml) 5,000 unit Q12 SQ Last administered on 11/17/16 07:44; Admin Dose 5,000 UNIT; Start 11/14/16 at 21:00 ; Stop 12/14/16 at 20:59 Insulin Aspart (novoLOG ASPART) SLIDING SCALE G... ACHS SC Last administered on 11/11/16 18:26; Admin Dose 5 UNITS; Start 11/11/16 at 16:15; Stop 12/11/16 at 16:14 Ipratropium [place] (Atrovent Hfa Inhaler) 4 puffs QIDR INH Last administered on 11/16/16 20:17; Admin Dose 4 PUFFS; Start 11/12/16 at 08:00; Stop 12/12/16 at 07:59 Levofloxacin 1 ea 1 ea UD PRN N/A; Start 11/15/16 at 14:45; Stop 11/18/16 at 23 :59 Levofloxacin/Prmx (Levaquin / D5W/ Premixed D5W) 150 ml @ 100 mls/hr Q2D@1700 IV Last administered on 11/16/16 17:15; Admin Dose 100 MLS/HR; Start 11/16/16 at 17:00; Stop 11/18/16 at 23:59 Metoprolol Tartrate 2.5 mg 2.5 mg Q3H PRN IV; Start 11/17/16 at 14:15; Stop 08/23 at 14:14 Multivitamins Therapeutic (Cerovite Liquid) 15 ml QAM PO Last administered on 07:37; Admin Dose 15 ML; Start 11/13/16 at 10:00; Stop 12/13/16 at 09:59 Norepinephrine Bitartrate/ Dextrose (Levophed Inj/ D5W 500ml) 508 ml @ 0 mls/hr Q0M PRN IV Last administered on 11/16/16 23:49; Admin Dose 24.4 MLS/HR; Start 11/11/16 at 22:33; Stop 12/11/16 at 22:32 Ondansetron HCl (Zofran Inj) 4 mg Q6H PRN IV Last administered on 11/12/16 10: 56; Admin Dose 4 MG; Start 11/11/16 at 14:00; Stop 12/11/16 at 13:59 Pantoprazole Sodium/Syringe (Protonix Inj/ Syringe) 10 ml @ 5 mls/min DAILY@11 IV Last administered on 11/17/16 10:50; Admin Dose 5 MLS/MIN; Start 11/12/16 at 11:00; Stop 12/12/16 at 10:59 Potassium Chloride/Prmx (Kcl 20 Meq / Wtr/Premixed Water) 100 ml @ 50 mls/hr NOW ONCE IV Last administered on 11/17/16 16:25; Admin Dose 50 MLS/HR; Start 11/17/16 at 16:15; Stop 11/17/16 at 18:14 Propofol 1 dose 1 dose UD PRN IV Last administered on 11/17/16 10:39; Admin Dose 1 DOSE; Start 11/15/16 at 01:45; Stop 11/18/16 at 01:44 Senna (Senokot Syrup) 8.8 mg QAM PO Last administered on 11/17/16 07:37; Admin Dose 8.8 MG; Start 11/16/16 at 09:00; Stop 12/16/16 at 08:59 Sterile Water (Tube Feeding Water Flush) 1 ea Q4 NG Last administered on 07:38; Admin Dose 1 EA; Start 11/13/16 at 20:00; Stop 12/13/16 at 19:59 Objective Vital Signs Date Time Temp Pulse Resp B/P Pulse Ox O2 Delivery O2 Flow Rate FiO2 11/17/16 14:15 70 11/17/16 14:13 146 98/57 11/17/16 14:00 37.3 94 26 91/43 93 Mechanical Ventilator 70 77/42 11/17/16 12:00 70 11/17/16 12:00 Mechanical Ventilator 70 11/17/16 12:00 37.2 146 30 96/61 93 Mechanical Ventilator 70 102/51 11/17/16 11:35 70 11/17/16 10:00 114 31 105/58 93 Mechanical Ventilator 70 118/55 11/17/16 08:00 Mechanical Ventilator 70 11/17/16 08:00 37.8 109 27 112/52 92 Mechanical Ventilator 70 105/47 11/17/16 08:00 Mechanical Ventilator 70 11/17/16 08:00 70 11/17/16 07:40 70 11/17/16 06:00 118 27 94/50 94 Mechanical Ventilator 70 103/48 11/17/16 05:30 136 27 90/51 94 Mechanical Ventilator 70 109/51 11/17/16 05:19 70 11/17/16 05:00 122 26 98/52 97 Mechanical Ventilator 70 105/49 11/17/16 04:30 121 26 102/58 97 Mechanical Ventilator 80 102/49 11/17/16 04:00 100 11/17/16 04:00 Mechanical Ventilator 80 11/17/16 04:00 36.6 128 26 102/62 97 Mechanical Ventilator 80 98/44 11/17/16 03:30 97 26 100/52 98 Mechanical Ventilator 80 106/47 11/17/16 03:00 117 26 103/59 98 Mechanical Ventilator 90 101/46 11/17/16 02:30 107 26 98/56 98 Mechanical Ventilator 90 97/47 11/17/16 02:05 90 11/17/16 02:00 112 26 98/50 99 Mechanical Ventilator 100 92/43 11/17/16 01:30 112 26 101/52 99 Mechanical Ventilator 100 88/37 11/17/16 01:00 118 26 117/68 99 Mechanical Ventilator 100 105/40 11/17/16 00:30 120 27 122/69 98 Mechanical Ventilator 100 113/43 11/17/16 00:15 15 94/53 Mechanical Ventilator 100 89/37 11/17/16 00:01 100 11/17/16 00:01 Mechanical Ventilator 100 11/17/16 00:00 36.8 112 26 102/59 98 Mechanical Ventilator 100 105/39 11/16/16 23:30 110 28 111/56 97 Mechanical Ventilator 100 97/36 11/16/16 23:19 100 11/16/16 23:01 116 27 102/41 96 Mechanical Ventilator 100 119/58 11/16/16 22:30 99 27 87/34 93 Mechanical Ventilator 100 90/45 11/16/16 22:25 97 26 79/38 93 Mechanical Ventilator 100 64/25 11/16/16 22:00 137 31 93/55 94 Mechanical Ventilator 100 94/43 11/16/16 21:32 139 31 97/55 94 Mechanical Ventilator 100 95/45 11/16/16 21:00 140 35 107/61 95 Mechanical Ventilator 100 103/48 11/16/16 20:23 100 11/16/16 20:00 142 32 108/58 96 Mechanical Ventilator 100 105/51 11/16/16 20:00 100 11/16/16 20:00 Mechanical Ventilator 100 11/16/16 19:47 115 34 111/47 94 Mechanical Ventilator 100 100/55 11/16/16 19:30 120 30 106/55 96 Mechanical Ventilator 100 11/16/16 18:30 121 27 117/55 95 Mechanical Ventilator 100 11/16/16 18:01 117 32 112/49 95 Mechanical Ventilator 100 11/16/16 17:48 100 11/16/16 17:00 91 29 130/52 96 Mechanical Ventilator 100 11/16/16 16:01 36.4 89 30 129/52 95 Mechanical Ventilator 100 11/16/16 16:00 100 11/16/16 16:00 Mechanical Ventilator 100 11/16/16 15:00 91 33 131/54 94 Mechanical Ventilator 100 11/16/16 14:53 100 Physical Exam Comments: intubated, sedated frail elderly tachycardic, no murmurs appreciated basilar crackles, no wheezing abd soft nt nd decreased bowel sounds no LE edema arzate in place Laboratory Results Last 24 Hours Test 11/16/16 17:03 11/16/16 20:21 11/17/16 05:18 11/17/16 06:23 Bedside Glucose 142 mg/dl 137 mg/dl White Blood Count K/uL 13.45 K/uL Red Blood Count M/uL 2.98 M/uL Hemoglobin g/dL 8.4 g/dL Hematocrit % 26.1 % Mean Corpuscular Volume fL 87.6 fL Mean Corpuscular Hemoglobin pg 28.2 pg Mean Corpuscular Hemoglobin Concent g/dl 32.2 g/dl Platelet Count K/uL 188 K/uL Mean Platelet Volume fL 9.1 fL Neutrophils (%) (Auto) % 92.9 % Lymphocytes (%) (Auto) % 2.0 % RDW Standard Deviation fL 55.2 fL RDW Coefficient of Variation % 17.4 % Random Vancomycin Level 21.8 mcg/ml Monocytes (%) (Auto) 3.5 % Eosinophils (%) (Auto) 0.5 % Basophils (%) (Auto) 0.0 % Neutrophils # (Auto) 12.49 K/uL Lymphocytes # (Auto) 0.27 K/uL Monocytes # (Auto) 0.47 K/uL Eosinophils # (Auto) 0.07 K/uL Basophils # (Auto) 0.00 K/uL Immature Granulocyte % (Auto) 1.1 % Immature Granulocyte # (Auto) 0.15 K/uL Large Platelets 1+ Basophilic Stippling 1+ Test 11/17/16 06:32 11/17/16 06:34 11/17/16 08:25 11/17/16 08:30 Sodium Level 142 mmol/L Potassium Level 2.5 mmol/L Chloride Level 100 mmol/L Carbon Dioxide Level 37 mmol/L Anion Gap 6.0 mmol/L Blood Urea Nitrogen 64 mg/dl Creatinine 1.50 mg/dl Est Creatinine Clear Calc Drug Dose 32.3 ml/min Estimated GFR () 52.4 Estimated GFR (Non- 45.2 BUN/Creatinine Ratio 42.8 Random Glucose 129 mg/dl Calcium Level 8.4 mg/dl Phosphorus Level 3.3 mg/dl Magnesium Level 2.2 mg/dl Bedside Glucose 136 mg/dl Bedside Hemoglobin 8.2 g/dl Bedside Hematocrit 24 % Bedside Blood Gas pH (LAB) 7.33 Bedside Blood Gas pCO2 (LAB) 64 mmHg Bedside Blood Gas pO2 (LAB) 68 mmHg Bedside Blood Gas HCO3 (LAB) 34 meq/L Bedside Blood Gas Total CO2 36 mEq/l Bedside Blood Gas Base Excess (LAB) 8.0 meq/L Bedside Blood Gas O2 Saturation 91.0 % Bedside Sodium 139 mEq/L Bedside Potassium 2.3 mEq/L Bedside Lactic Acid Arterial 1.19 mmol/L Test 11/17/16 10:29 11/17/16 11:50 11/17/16 13:57 Ionized Calcium 1.19 mmol/l Random Cortisol 63.38 mcg/dl Bedside Glucose 125 mg/dl Assessment and Plan 1. Acute hypoxemic respiratory failure with RDS - known underlying malignancy [id number] adenocarcinoma of the lung s/p chemo and radiation - on broad spectrum abx without siginificant improvement, now on levaquin - multiple organ failure - based on family discussions and palliative care discussions, family has decided on comfort care later this evening - questions and concerns addressed with son-in-law at beside. support provided. 2. Afib with RVR - lopressor prn 3. NSTEMI - conservative treatment at this point 4. NICOLE - 2/2 hypoperfusion 5. ELectrolyte abnormalities - replete K as needed -Minimize blood draws at this time
[2016-11-17 15:31] LABS: BUN/CREATININE RATIO 40.8 (10-20); CREATININE 1.6 mg/dl (0.60-1.40); POTASSIUM 3.3 mmol/L (3.5-5.1)
[2016-11-17] MEDS ORDERED: POTASSIUM CHLR 20 MEQ / WTR 20 MEQ in PREMIXED WATER 100 ML IV ONE (16:15)
[2016-11-17] MEDS ORDERED: LACTATED RINGER'S 1000ML 1,000 ML IV ONE (17:30)
[2016-11-17 20:14] LABS: BUN/CREATININE RATIO 45.2 (10-20); CALCIUM 8.8 mg/dl (8.5-10.1); CREATININE 1.5 mg/dl (0.60-1.40); POTASSIUM 3.4 mmol/L (3.5-5.1)
--- NOTE | 2016-11-17 21:57 | Critical Care Progress Note ---
Critical Care Progress Note Date of Service Nov 17, 2016. Critical Care Progress Note I was alerted by Samina, the patient's night nurse, that the family was ready to withdraw care and begin comfort only measures. I did verify this decision with the family at bedside at which time they asked that they be present during the extubation and again verbally stated they wished all life sustaining measures be stopped and that their loved one only be kept comfortable.. Respiratory was called and they arrived to extubate the patient at 0. All medications, excluding the patient's fentanyl drip IV were discontinued. Pt quickly at 2158 with family still at bedside.
[2016-11-17] MEDS ORDERED: MIDAZOLAM HCL 5 MG/ML 2ML VIAL IV ONE (21:59)
[2016-11-17] MEDS ORDERED: FENTANYL CITRATE INJ 50 MCG/1 ML 2 ML VIAL IV ONE (21:59)
--- NOTE | 2016-11-17 22:25 | Death Pronouncement Note ---
Pronouncement Note Date & Time of Nov 17, 2016. 10:20pm (Kalie Rodriguez MD) 11/17/160 (Liza Jones MD) Pronouncement At time of pronouncement the patients pupils were fixed and dilated, there was no spontaneous respiratory effort, no palpable pulse, no audible heart tones, and no response to pain or voice. Kalie Rodriguez MD [phone] (Kalie Rodriguez MD) Agree with the note written by Dr. Rodriguez. No further additions. (Liza Jones MD) Resident Tracking Resident Involvement: Resident Care Provided Care Provided: Adult Hospital Medicine (Kalie Rodriguez MD)
--- NOTE | 2016-11-19 15:59 | Death Summary ---
Summary of Admission Date Nov 11, 2016 at 14:04 Date & Time of 11/17/16 2220 Cause of Hypoxia, lung cancer, acute kidney injury Hospital Course This 76 year old male patient presented to [facility] from [facility] with pmh of NSCLC s/p chemo and radiation in Sep 2016, with acute hypoxic respiratory failure. Patient was recently treated for penumonia and finished a 10-day course of abx, however, became febrile with worsening respiratory status and presented to [facility] and transferred to [facility]. Once here, respiratory failure continued to worsen, requiring bipap then eventually requiring intubation. He developed a right pneumothorax and had a chest tube placed on 11/14/16. He has also developed multi-system organ failure despite maximum medical intervention and efforts including broad spectrum antibiotics and mechanical ventilation. He was on mechanical ventilation for about a week and was deemed to have no significant improvement. After long discussions with family and due to his underlying terminal illness with essentially no meaningful recovery, patient was evaluated by palliative care and eventually was made DNR with comfort care measures performed once arrangements were made by family members. Patient passed on 11/17/16 at 2220. Copy To Sanjana Rosas D.O.
== END 2016-11-17 22:00 | disposition expired | DRG 853 ==
LOC: ENRESERVTM → ENRESERVDT → UNDOADMIN 13:45 → C.2E 13:45 → C.MSICU 18:50
PROVIDERS: ADMIT Internal Medicine; ATTEND Internal Medicine
PROC: 0BH17EZ Insertion of Endotracheal Airway into Trachea, Via Natural or Artificial Opening (ICD-10-PCS; principal; 2016-11-11)
PROC: 5A1955Z Respiratory Ventilation, Greater than 96 Consecutive Hours (ICD-10-PCS; principal; 2016-11-11)
PROC: 0B9F8ZX Drainage of Right Lower Lung Lobe, Via Natural or Artificial Opening Endoscopic, Diagnostic (ICD-10-PCS; 2016-11-12)
PROC: 02HV33Z Insertion of Infusion Device into Superior Vena Cava, Percutaneous Approach (ICD-10-PCS; 2016-11-12)
PROC: 0B9J8ZX Drainage of Left Lower Lung Lobe, Via Natural or Artificial Opening Endoscopic, Diagnostic (ICD-10-PCS; 2016-11-12)
PROC: 0B9C8ZX Drainage of Right Upper Lung Lobe, Via Natural or Artificial Opening Endoscopic, Diagnostic (ICD-10-PCS; 2016-11-12)
PROC: 0B9N30Z Drainage of Right Pleura with Drainage Device, Percutaneous Approach (ICD-10-PCS; 2016-11-14)
DX: A41.9 Sepsis, unspecified organism (principal); J96.01 Acute respiratory failure with hypoxia; J18.9 Pneumonia, unspecified organism; R65.21 Severe sepsis with septic shock; I21.4 Non-ST elevation (NSTEMI) myocardial infarction; J96.02 Acute respiratory failure with hypercapnia; C34.11 Malignant neoplasm of upper lobe, right bronchus or lung; E46 Unspecified protein-calorie malnutrition; J93.9 Pneumothorax, unspecified; E87.2 Acidosis; N17.9 Acute kidney failure, unspecified; Z51.5 Encounter for palliative care; Z66 Do not resuscitate; R65.20 Severe sepsis without septic shock; Y95 Nosocomial condition; T81.82XA Emphysema (subcutaneous) resulting from a procedure, initial encounter; Y82.8 Other medical devices associated with adverse incidents; I48.91 Unspecified atrial fibrillation; D64.9 Anemia, unspecified; I95.2 Hypotension due to drugs; T41.295A Adverse effect of other general anesthetics, initial encounter; R73.9 Hyperglycemia, unspecified; T38.0X5A Adverse effect of glucocorticoids and synthetic analogues, initial encounter; E88.09 Other disorders of plasma-protein metabolism, not elsewhere classified; E83.39 Other disorders of phosphorus metabolism; E87.6 Hypokalemia; N40.1 Benign prostatic hyperplasia with lower urinary tract symptoms; R33.9 Retention of urine, unspecified; Z79.52 Long term (current) use of systemic steroids; Z92.21 Personal history of antineoplastic chemotherapy; Z92.3 Personal history of irradiation; Z87.891 Personal history of nicotine dependence; Z80.1 Family history of malignant neoplasm of trachea, bronchus and lung